=== PATIENT | male | born 1940 | race Caucasian/White ===

== ENCOUNTER 2016-09-05 18:32 | Emergency (ER) | payer MEDICARE, MEDICAID ==
[~2016-09-05 18:32] MED LIST: ABIL2TAB2 PO; ACET-654 PO; ACTO30TA6 PO; ASPI81CH21 PO; ASPI81TA7 PO; ATOR40TA PO; BACT800T5 PO; BISO5TAB5 PO; BUPR150T3 PO; CITA10TA2 PO; DIGO25TA PO; DOXY10CA PO; DRIS1CAP PO; DRIS50002 PO; GLUC1VL SC; GLUC4GMTAB OR; INDA125TA PO; INDA2.5T PO; INSULANT SC; LANTINJ4 SC; LIPI20TA PO; LIPI80TA PO; LORA0.5T PO; LOTR1CRE TOP; LOVA1CAP16 PO; MIRT1TAB PO; NOVO70VL SC; POTA20TA4 PO; SYNT50TA PO; TRAZ150T PO; VENL75TA2 PO; VITA10002 PO; WELLTAB38 PO; ZEST20TA8 PO; [UNRECOGNIZED DRUG - CODE] PO; [UNRECOGNIZED DRUG - OTHER] OR; glucometer
[2016-09-05] MEDS ORDERED: ADACEL/BOOSTRIX VACCINE (DIPHTH/PERTUSS/ACELL/TETANUS)0.5ML SYR (90715) As Ordered ONE (19:07)
--- NOTE | 2016-09-05 19:23 | REP ---
Clinical: Trauma. Comparison: 05/18/2016. Findings: There is a very small hyperdense focus along the right post central gyrus (image 23) while this may reflect chronic change, a very small contusion cannot be excluded. The ventricles and sulci are otherwise symmetric and demonstrate atrophic changes. The vazquez-white differentiation is maintained without evidence for acute infarction. No further intracranial hemorrhage mass or mass effect is identified. No extra-axial fluid collection is appreciated. The calvarium is intact the sinuses are clear. Impression: Very small hyperdense focus along the right post central gyrus may reflect chronic change versus small acute contusion. No further acute intracranial hemorrhage, infarction, or mass/mass effect. Age related atrophy and microvascular ischemic changes. Signed by Elkin Cabello MD 09/05/2016 07:15 P
--- NOTE | 2016-09-05 19:27 | REP ---
Clinical: Trauma. Technique: Axial noncontrast images from the skull base to the thoracic inlet with coronal and sagittal re-formations. Findings: Straightening of normal lordosis is secondary to positioning versus pain/spasm. Osteopenia and advanced multilevel degenerative changes includes anterior and posterior osteophytosis along with posterior longitudinal ligament calcifications, endplate sclerosis and disc space narrowing. Chronic canal stenosis from C5-C7 measures approximately 6.6 mm in the AP diameter. Partial fusion at C7-T1. No obvious acute fracture / compression injury or subluxation. Posterior elements and spinous processes demonstrate degenerative changes without acute fracture. Paravertebral soft tissues are grossly normal. Impression: Osteopenia and multilevel degenerative changes as described above. Straightening of normal lordosis likely chronic and related to positioning. No acute fracture / compression injury or subluxation identified. Signed by Elkin Cabello MD 09/05/2016 07:19 P
--- NOTE | 2016-09-05 19:44 | REP ---
Clinical: Trauma. Technique: AP and lateral views of the left forearm. Findings: Age-related osteopenia and degenerative changes at the wrist and elbow are suggested. No obvious acute fracture or dislocation. No subcutaneous emphysema or radiodense foreign body. Impression: Age-related changes. No acute fracture or dislocation identified. Signed by Elkin Cabello MD 09/05/2016 07:36 P
[2016-09-05] MEDS ORDERED: LIDOCAINE 1% MDV 20ML VIAL As Ordered ONE (20:10)
--- NOTE | 2016-09-05 21:03 | EDDOCDS ---
Nurse's Notes [facility] Name: Rohan Mantilla Age: 75 yrs Sex: Male : 1940 Arrival Date: 09/05/2016 Time: 18:32 Bed 3 Private MD: Osvaldo Diagnosis: Laceration without foreign body of left ear;Contusion of unspecified part of head Presentation: 09/05 18:40 Presenting complaint: Patient states: states that he attempted to get into his chair ml6 without his walker, patient states that he became dizzy and fell sideways striking his right ear on table. Adult Sepsis Screening: The patient does not have new or worsening altered mentation. Patient's respiratory rate is less than 22. Systolic blood pressure is greater than 100. Patient has a qSOFA score of 0- Negative Sepsis Screen. Suicide/Homicide risk assessment- the patient denies having any suicidal and/or homicidal ideations and does not present with any other emotional, behavioral or mental health complaints. 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 Transition of care: patient was not received from another setting of care. 18:40 Acuity: CIARA Level 3 ml6 18:40 Method Of Arrival: Walkin/Carried/Asstd ml6 Triage Assessment: 18:46 General: Appears in no apparent distress, Behavior is appropriate for age, cooperative. ml6 Pain: Location: left ear and palmar aspect of left forearm Pain currently is 3 out of 10 on a pain scale. Pain does not radiate. Quality of pain is described as aching, Pain began 30 min ago Is continuous. The patient is triaged at the bedside. See Assessment in Nurses Notes section of ED record. Neurological: No deficits noted. Level of Consciousness is awake, alert, Oriented to person, place, time, Bus Attendant are equal bilaterally Moves all extremities. Full function Gait is steady, Speech is normal. Cardiovascular: No deficits noted. Capillary refill < 3 seconds is brisk in bilateral fingers toes. Musculoskeletal: cervical spine is non-tender. Circulation, motion, and sensation intact Signs and Symptoms of Compartment Syndrome: no signs of compartment syndrome. Injury Description: pt fell from standing. Historical: - Allergies: no known allergies; - Home Meds: 1. Abilify 2 mg Oral tab 2 mg daily (Last dose: 09/05/2016 08:00) 2. aspirin 81 mg Oral TbEC 1 tab once daily (Last dose: 09/05/2016 08:00) 3. atorvastatin 40 mg oral tab 1 tab once daily (Last dose: 09/05/2016 08:00) 4. B12 1000mcg 1 tab daily (Last dose: 09/05/2016 08:00) 5. bisoprolol fumarate 5 mg oral tab 0.5 tab once daily (Last dose: 09/05/2016 08:00) 6. bupropion HCl 150 mg Oral TbER 2 tab once daily (Last dose: 09/05/2016 08:00) 7. Drisdol 50,000 unit Oral cap 1 cap once wkly (Last dose: 09/05/2016 08:00) 8. indapamide 1.25 mg Oral tab 1 tab every two days (Last dose: 09/05/2016 08:00) 9. Lantus 100 unit/mL Sub-Q soln 12 unit nightly (Last dose: 09/04/2016 20:00) 10. levothyroxine 50 mcg Oral cap once daily (Last dose: 09/05/2016 08:00) 11. Lofibra 200 mg oral cap 1 cap once daily (Last dose: 09/05/2016 08:00) 12. Mapap (acetaminophen) 325 mg oral tab 2 tabs every 4 hours (Last dose: 09/05/2016 08:00) 13. Milk of Magnesia 400 mg/5 mL Oral susp 30 mL once daily (Last dose: 09/05/2016 08:00) 14. mirtazapine 7.5 mg Oral tab 1 tabs once daily (Last dose: 09/05/2016 08:00) 15. Novolin 70/30 Innolet 36 units Sub-Q 70-30 unit/mL (Last dose: 09/05/2016 12:00) 16. venlafaxine 75 mg oral tab 2 tab 2 times per day (Last dose: 09/05/2016 08:00) - PMHx: Anxiety; Atrial Fib; Diabetes; Hypercholesterolemia; Hypertension; Hypothyroidism; kidney disease; - PSHx: Colostomy Construction; - Social history: Smoking status: Patient states former smoker of tobacco. No barriers to communication noted, Speaks appropriately for age. - Family history: Not pertinent. - : The pt / caregiver states he / she is not on anticoagulants. Home medication list is obtained from the patient. - Exposure Risk Screening:: None identified. Screenin:47 Screening information is obtained from the patient. Fall risk: No risks identified. ml6 Assistance ADL's: requires no assistance with activities of daily living. Abuse/DV Screen: The patient / caregiver reports he/she is: not in a situation that causes fear, pain or injury. Nutritional screening: No deficits noted. Advance Directives: Currently, there is no health care proxy. home support is adequate. Assessment: 18:47 General: see triage assessment. 6 19:02 General: Verbal report given by Vikash Plata RN. Assumed care of patient at this time.. kas2 19:45 General: Appears in no apparent distress, comfortable, well nourished, well groomed, kas2 Behavior is appropriate for age, cooperative. Pain: Location: left arm and left ear and palmar aspect of left forearm Pain currently is 4 out of 10 on a pain scale. Neurological: Level of Consciousness is awake, alert, Oriented to person, place, time. Cardiovascular: Capillary refill < 3 seconds Heart tones S1 S2 present Rhythm is sinus rhythm No ectopy. Respiratory: Airway is patent Respiratory effort is even, unlabored, Respiratory pattern is regular, symmetrical, Breath sounds are clear bilaterally. Derm: Skin is intact, is healthy with good turgor, Skin is dry, Skin is pink, warm & dry. Skin temperature is warm. Injury Description: Laceration sustained to left ear. 20:23 General: Dr. Champagne in the room suturing up left ear at this time.. kas2 20:45 General: Patient sitting up in bed with no complaints of pain or discomfort at this kas2 time. Bleeding controlled to left ear. No apparent distress. Call khan within reach. Will continue to monitor at this time.. 21:02 General: Report called to Nursing speech pathology supervisor Luh NINO at [facility] assisted living.. kas2 Vital Signs: 18:41 BP 143 / 68; Pulse 72; Resp 16; Temp 97.3(O); Pulse Ox 97% on R/A; Weight 95.16 kg (R); ml6 Height 5 ft. 8 in. (172.72 cm) (R); Pain 2/10; 18:45 BP 129 / 62 (auto/); kas2 18:45 Pulse 71 MON; Pulse Ox 97% ; kas2 19:00 BP 183 / 84 (auto/); kas2 19:00 Pulse 81 MON; Pulse Ox 96% ; kas2 19:14 BP 139 / 68 (auto/); kas2 19:14 Pulse 73 MON; Pulse Ox 96% ; kas2 19:16 BP 142 / 72 (auto/); kas2 19:16 Pulse 72 MON; Pulse Ox 97% ; kas2 19:31 BP 136 / 64 (auto/); kas2 19:31 Pulse 71 MON; Pulse Ox 93% ; kas2 19:46 BP 133 / 75 (auto/); kas2 19:46 Pulse 72 MON; Pulse Ox 92% ; kas2 19:47 Resp 20; Temp 98.2(O); kas2 20:01 BP 142 / 63 (auto/); kas2 20:01 Pulse 69 MON; Pulse Ox 94% ; kas2 20:16 BP 156 / 88 (auto/); kas2 20:16 Pulse 70 MON; Pulse Ox 96% ; kas2 20:31 BP 153 / 80 (auto/); kas2 20:31 Pulse 70 MON; Pulse Ox 97% ; kas2 20:46 BP 151 / 85 (auto/); kas2 20:46 Pulse 71 MON; Pulse Ox 95% ; kas2 18:41 Body Mass Index 31.90 (95.16 kg, 172.72 cm) 6 Vitals: 18:41 Log In Time N/A - ambulance arrival. 6 ED Course: 18:33 Patient visited by Cari Ibrahim Sediment Remediation Consultant. lbd 18:33 [place] is Private Physician. lbd 18:33 Patient moved to Waiting lbd 18:34 Ousmane Plata, RN is Primary Nurse. lbd 18:34 Patient moved to 3 lbd 18:41 Triage Initiated ml6 18:47 The patient / caregiver is instructed regarding the plan of care and ED course. ml6 18:53 Armani Champagne DO is Attending Physician. cs11 18:53 Patient visited by Armani Champagne DO. cs11 19:02 Zuri Owens,MICA is Primary Nurse. kas2 19:03 Patient visited by Zuri Owens,MICA. kas2 19:47 Patient visited by Zuri Owens RN. kas2 20:04 CT Head Without Contrast Returned. EDMS 20:04 CT Spine,Cervical W/o Contrast Returned. EDMS 20:04 Forearm (radius/ulna) Returned. EDMS 20:06 [facility] Payment Agreement was scanned into [employer] and attached to record. gjb 20:20 Patient visited by Zuri Owens RN. kas2 20:23 Patient visited by Zuri Owens RN. kas2 20:40 Osvaldo is Referral Physician. cs11 21:01 No IV's were initiated during this patient's visit. No procedures done that require kas2 assistance. 21:02 Patient visited by Zuri Owens RN. kas2 Administered Medications: 19:16 Drug: Tetanus- Diptheria-Acellular Pertussis 0.5 ml [diphth,pertussis(acel),tetanus 2.5 kas2 Lf unit-8 mcg-5 Lf/0.5mL IM syringe (0.5 mL)] {Foot Caster: Five minutes. Exp: 10/04/2018. Lot #: [id number]. } Route: IM; Site: right deltoid; Order Results: Radiology Order: CT Head Without Contrast Test: CT Head Without Contrast REASON FOR EXAMINATION: Trauma; Clinical: Trauma.; ; Comparison: 05/18/2016.; ; Findings:; ; There is a very small hyperdense focus along the right post central gyrus (image; 23) while this may reflect chronic change, a very small contusion cannot be; excluded.; ; The ventricles and sulci are otherwise symmetric and demonstrate atrophic; changes. The vazquez-white differentiation is maintained without evidence for acute; infarction. No further intracranial hemorrhage mass or mass effect is; identified. No extra-axial fluid collection is appreciated. The calvarium is; intact the sinuses are clear.; ; ; Impression:; Very small hyperdense focus along the right post central gyrus may reflect; chronic change versus small acute contusion.; No further acute intracranial hemorrhage, infarction, or mass/mass effect.; Age related atrophy and microvascular ischemic changes.; ; ; Signed by; Elkin Cabello MD 09/05/2016 07:15 P; Radiology Order: CT Spine,Cervical W/o Contrast Test: CT Spine,Cervical W/o Contrast REASON FOR EXAMINATION: Trauma; Clinical: Trauma.; ; Technique: Axial noncontrast images from the skull base to the thoracic inlet; with coronal and sagittal re-formations.; ; Findings:; Straightening of normal lordosis is secondary to positioning versus pain/spasm.; Osteopenia and advanced multilevel degenerative changes includes anterior and; posterior osteophytosis along with posterior longitudinal ligament; calcifications, endplate sclerosis and disc space narrowing. 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 Partial; fusion at C7-T1. No obvious acute fracture / compression injury or subluxation.; Posterior elements and spinous processes demonstrate degenerative changes without; acute fracture. Paravertebral soft tissues are grossly normal.; ; Impression:; Osteopenia and multilevel degenerative changes as described above.; Straightening of normal lordosis likely chronic and related to positioning.; No acute fracture / compression injury or subluxation identified.; ; ; Signed by; Elkin Cabello MD 09/05/2016 07:19 P; Radiology Order: Forearm (radius/ulna) Test: Forearm (radius/ulna) REASON FOR EXAMINATION: Trauma; Clinical: Trauma.; ; Technique: AP and lateral views of the left forearm.; ; Findings:; Age-related osteopenia and degenerative changes at the wrist and elbow are; suggested. No obvious acute fracture or dislocation. No subcutaneous emphysema; or radiodense foreign body.; ; Impression:; Age-related changes. No acute fracture or dislocation identified.; ; ; Signed by; Elkin Cabello MD 09/05/2016 07:36 P; Outcome: 20:43 Discharge ordered by Provider. 11 21:01 Discharge Assessment: patient administered narcotics - no. The following High Risk contra [facility] Discharge criteria are identified: None. Discharged to [facility] assisted. Condition: good Condition: stable Condition: improved. CT Study completed. Property :Personal belongings accompany Pt. 21:02 Patient left the ED. contra [facility] Signatures: Dispatcher [employer] EDMS Cari Ibrahim, Sediment Remediation Consultant Unit lbd Ousmane Plata RN RN ml6 Armani Champagne DO DO cs11 Mirta Holloway KimRN RN contra [facility]
--- NOTE | 2016-09-05 21:03 | EDDOCDS ---
Physician Documentation [facility] Name: Rohan Mantilla Age: 75 yrs Sex: Male : 1940 Arrival Date: 09/05/2016 Time: 18:32 Bed 3 Private MD: Osvaldo Disposition: 09/05/16 20:43 Discharged to Home/Self Care. Impression: Laceration without foreign body of left ear, Contusion of unspecified part of head. - Condition is Stable. - Medication Reconciliation, Local Pharmacy Hours form. - Follow up: Osvaldo; When: 1 week; Reason: Staple/Suture removal. - Problem is new. - Symptoms have improved. Historical: - Allergies: no known allergies; - Home Meds: 1. Abilify 2 mg Oral tab 2 mg daily (Last dose: 09/05/2016 08:00) 2. aspirin 81 mg Oral TbEC 1 tab once daily (Last dose: 09/05/2016 08:00) 3. atorvastatin 40 mg oral tab 1 tab once daily (Last dose: 09/05/2016 08:00) 4. B12 1000mcg 1 tab daily (Last dose: 09/05/2016 08:00) 5. bisoprolol fumarate 5 mg oral tab 0.5 tab once daily (Last dose: 09/05/2016 08:00) 6. bupropion HCl 150 mg Oral TbER 2 tab once daily (Last dose: 09/05/2016 08:00) 7. Drisdol 50,000 unit Oral cap 1 cap once wkly (Last dose: 09/05/2016 08:00) 8. indapamide 1.25 mg Oral tab 1 tab every two days (Last dose: 09/05/2016 08:00) 9. Lantus 100 unit/mL Sub-Q soln 12 unit nightly (Last dose: 09/04/2016 20:00) 10. levothyroxine 50 mcg Oral cap once daily (Last dose: 09/05/2016 08:00) 11. Lofibra 200 mg oral cap 1 cap once daily (Last dose: 09/05/2016 08:00) 12. Mapap (acetaminophen) 325 mg oral tab 2 tabs every 4 hours (Last dose: 09/05/2016 08:00) 13. Milk of Magnesia 400 mg/5 mL Oral susp 30 mL once daily (Last dose: 09/05/2016 08:00) 14. mirtazapine 7.5 mg Oral tab 1 tabs once daily (Last dose: 09/05/2016 08:00) 15. Novolin 70/30 Innolet 36 units Sub-Q 70-30 unit/mL (Last dose: 09/05/2016 12:00) 16. venlafaxine 75 mg oral tab 2 tab 2 times per day (Last dose: 09/05/2016 08:00) - PMHx: Anxiety; Atrial Fib; Diabetes; Hypercholesterolemia; Hypertension; Hypothyroidism; kidney disease; - PSHx: Colostomy Construction; - Social history: Smoking status: Patient states former smoker of tobacco. No barriers to communication noted, Speaks appropriately for age. - Family history: Not pertinent. - : The pt / caregiver states he / she is not on anticoagulants. Home medication list is obtained from the patient. - Exposure Risk Screening:: None identified. Vital Signs: 09/05 18:41 BP 143 / 68; Pulse 72; Resp 16; Temp 97.3(O); Pulse Ox 97% on R/A; Weight 95.16 kg / ml6 209.79 lbs (R); Height 5 ft. 8 in. (172.72 cm) (R); Pain 2/10; 18:45 BP 129 / 62 (auto/); kas2 18:45 Pulse 71 MON; Pulse Ox 97% ; kas2 19:00 BP 183 / 84 (auto/); kas2 19:00 Pulse 81 MON; Pulse Ox 96% ; kas2 19:14 BP 139 / 68 (auto/); kas2 19:14 Pulse 73 MON; Pulse Ox 96% ; kas2 19:16 BP 142 / 72 (auto/); kas2 19:16 Pulse 72 MON; Pulse Ox 97% ; kas2 19:31 BP 136 / 64 (auto/); kas2 19:31 Pulse 71 MON; Pulse Ox 93% ; kas2 19:46 BP 133 / 75 (auto/); kas2 19:46 Pulse 72 MON; Pulse Ox 92% ; kas2 19:47 Resp 20; Temp 98.2(O); kas2 20:01 BP 142 / 63 (auto/); kas2 20:01 Pulse 69 MON; Pulse Ox 94% ; kas2 20:16 BP 156 / 88 (auto/); kas2 20:16 Pulse 70 MON; Pulse Ox 96% ; kas2 20:31 BP 153 / 80 (auto/); kas2 20:31 Pulse 70 MON; Pulse Ox 97% ; kas2 20:46 BP 151 / 85 (auto/); kas2 20:46 Pulse 71 MON; Pulse Ox 95% ; kas2 18:41 Body Mass Index 31.90 (95.16 kg, 172.72 cm) ml6 Procedures: 20:36 Laceration repair:. cs11 Laceration: 20:36 Wound Repair of 1.5cm ( 0.6in ) full thickness laceration to left ear. Distal cs11 neuro/vascular/tendon intact. Anesthesia: Local anesthetic administered with 2.0 mls of 1% lidocaine. Wound prep: Moderate cleansing with hibiclenz by provider. Skin closed with 5 x 3-0 Ethilon using Simple interrupted sutures. Patient tolerated well. MDM: 18:53 CT Head Without Contrast Ordered. EDMS 18:53 CT Spine,Cervical W/o Contrast Ordered. EDMS 18:55 Tetanus- Diptheria-Acellular Pertussis 0.5 ml IM once; Routine booster 10-64yrs, >64 cs11 with child contact Clarkia Omnicell ordered. 18:57 Forearm (radius/ulna) Ordered. EDMS 19:55 Financial registration complete. [email or web address] 20:06 [facility] Payment Agreement was scanned into [employer] and attached to record. gjb Administered Medications: 19:16 Drug: Tetanus- Diptheria-Acellular Pertussis 0.5 ml [diphth,pertussis(acel),tetanus 2.5 [facility] Lf unit-8 mcg-5 Lf/0.5mL IM syringe (0.5 mL)] {Engine Assembler: [employer]. Exp: 10/04/2018. Lot #: [id number]. } Route: IM; Site: right deltoid; Signatures: Dispatcher MedHost EDMS Ousmane Plata RN RN ml6 Armani Champagne DO DO cs11 Mirta Hollowayb Zuri Owens RN RN kas2 The chart was reviewed and I authenticate all verbal orders and agree with the evaluation and treatment provided.Attachments: 20:06 [facility] Payment Agreement gjzahira MTDD
--- NOTE | 2016-09-07 22:03 | EDDOCDS ---
Physician Documentation [facility] Name: Rohan Mantilla Age: 75 yrs Sex: Male : 1940 Arrival Date: 09/05/2016 Time: 18:32 Bed 3 Private MD: Osvaldo Disposition: 09/05/16 20:43 Discharged to Home/Self Care. Impression: Laceration without foreign body of left ear, Contusion of unspecified part of head. - Condition is Stable. - Medication Reconciliation, Local Pharmacy Hours form. - Follow up: Osvaldo; When: 1 week; Reason: Staple/Suture removal. - Problem is new. - Symptoms have improved. Historical: - Allergies: no known allergies; - Home Meds: 1. Abilify 2 mg Oral tab 2 mg daily (Last dose: 09/05/2016 08:00) 2. aspirin 81 mg Oral TbEC 1 tab once daily (Last dose: 09/05/2016 08:00) 3. atorvastatin 40 mg oral tab 1 tab once daily (Last dose: 09/05/2016 08:00) 4. B12 1000mcg 1 tab daily (Last dose: 09/05/2016 08:00) 5. bisoprolol fumarate 5 mg oral tab 0.5 tab once daily (Last dose: 09/05/2016 08:00) 6. bupropion HCl 150 mg Oral TbER 2 tab once daily (Last dose: 09/05/2016 08:00) 7. Drisdol 50,000 unit Oral cap 1 cap once wkly (Last dose: 09/05/2016 08:00) 8. indapamide 1.25 mg Oral tab 1 tab every two days (Last dose: 09/05/2016 08:00) 9. Lantus 100 unit/mL Sub-Q soln 12 unit nightly (Last dose: 09/04/2016 20:00) 10. levothyroxine 50 mcg Oral cap once daily (Last dose: 09/05/2016 08:00) 11. Lofibra 200 mg oral cap 1 cap once daily (Last dose: 09/05/2016 08:00) 12. Mapap (acetaminophen) 325 mg oral tab 2 tabs every 4 hours (Last dose: 09/05/2016 08:00) 13. Milk of Magnesia 400 mg/5 mL Oral susp 30 mL once daily (Last dose: 09/05/2016 08:00) 14. mirtazapine 7.5 mg Oral tab 1 tabs once daily (Last dose: 09/05/2016 08:00) 15. Novolin 70/30 Innolet 36 units Sub-Q 70-30 unit/mL (Last dose: 09/05/2016 12:00) 16. venlafaxine 75 mg oral tab 2 tab 2 times per day (Last dose: 09/05/2016 08:00) - PMHx: Anxiety; Atrial Fib; Diabetes; Hypercholesterolemia; Hypertension; Hypothyroidism; kidney disease; - PSHx: Colostomy Construction; - Social history: Smoking status: Patient states former smoker of tobacco. No barriers to communication noted, Speaks appropriately for age. - Family history: Not pertinent. - : The pt / caregiver states he / she is not on anticoagulants. Home medication list is obtained from the patient. - Exposure Risk Screening:: None identified. Vital Signs: 09/05 18:41 BP 143 / 68; Pulse 72; Resp 16; Temp 97.3(O); Pulse Ox 97% on R/A; Weight 95.16 kg / ml6 209.79 lbs (R); Height 5 ft. 8 in. (172.72 cm) (R); Pain 2/10; 18:45 BP 129 / 62 (auto/); kas2 18:45 Pulse 71 MON; Pulse Ox 97% ; kas2 19:00 BP 183 / 84 (auto/); kas2 19:00 Pulse 81 MON; Pulse Ox 96% ; kas2 19:14 BP 139 / 68 (auto/); kas2 19:14 Pulse 73 MON; Pulse Ox 96% ; kas2 19:16 BP 142 / 72 (auto/); kas2 19:16 Pulse 72 MON; Pulse Ox 97% ; kas2 19:31 BP 136 / 64 (auto/); kas2 19:31 Pulse 71 MON; Pulse Ox 93% ; kas2 19:46 BP 133 / 75 (auto/); kas2 19:46 Pulse 72 MON; Pulse Ox 92% ; kas2 19:47 Resp 20; Temp 98.2(O); kas2 20:01 BP 142 / 63 (auto/); kas2 20:01 Pulse 69 MON; Pulse Ox 94% ; kas2 20:16 BP 156 / 88 (auto/); kas2 20:16 Pulse 70 MON; Pulse Ox 96% ; kas2 20:31 BP 153 / 80 (auto/); kas2 20:31 Pulse 70 MON; Pulse Ox 97% ; kas2 20:46 BP 151 / 85 (auto/); kas2 20:46 Pulse 71 MON; Pulse Ox 95% ; kas2 18:41 Body Mass Index 31.90 (95.16 kg, 172.72 cm) ml6 Procedures: 20:36 Laceration repair:. cs11 Laceration: 20:36 Wound Repair of 1.5cm ( 0.6in ) full thickness laceration to left ear. Distal cs11 neuro/vascular/tendon intact. Anesthesia: Local anesthetic administered with 2.0 mls of 1% lidocaine. Wound prep: Moderate cleansing with hibiclenz by provider. Skin closed with 5 x 3-0 Ethilon using Simple interrupted sutures. Patient tolerated well. MDM: 18:53 CT Head Without Contrast Ordered. EDMS 18:53 CT Spine,Cervical W/o Contrast Ordered. EDMS 18:55 Tetanus- Diptheria-Acellular Pertussis 0.5 ml IM once; Routine booster 10-64yrs, >64 cs11 with child contact Meeker Omnicell ordered. 18:57 Forearm (radius/ulna) Ordered. EDMS 19:55 Financial registration complete. [facility] 20:06 [facility] Payment Agreement was scanned into [employer] and attached to record. [facility] 09/06 08:11 T-Sheet-- Draft Copy was scanned into [employer] and attached to record. [facility] Administered Medications: 09/05 19:16 Drug: Tetanus- Diptheria-Acellular Pertussis 0.5 ml [diphth,pertussis(acel),tetanus 2.5 [facility] Lf unit-8 mcg-5 Lf/0.5mL IM syringe (0.5 mL)] {Outdoor Adventure Guides: [employer]. Exp: 10/04/2018. Lot #: [id number]. } Route: IM; Site: right deltoid; Signatures: Dispatcher MedHost EDMS Ousmane Plata RN RN ml6 Armani Champagne DO DO cs11 Mirta Holloway [facility] Zuri Owens RN RN kas2 [place] The chart was reviewed and I authenticate all verbal orders and agree with the evaluation and treatment provided.Attachments: 20:06 [facility] Payment Agreement gjb 09/06 08:11 T-Sheet-- Draft Copy [facility] Chart Complete MTDD
--- NOTE | 2016-09-07 22:03 | EDDOCDS ---
Nurse's Notes [facility] Name: Rohan Mantilla Age: 75 yrs Sex: Male : 1940 Arrival Date: 09/05/2016 Time: 18:32 Bed 3 Private MD: Osvaldo Diagnosis: Laceration without foreign body of left ear;Contusion of unspecified part of head Presentation: 09/05 18:40 Presenting complaint: Patient states: states that he attempted to get into his chair ml6 without his walker, patient states that he became dizzy and fell sideways striking his right ear on table. Adult Sepsis Screening: The patient does not have new or worsening altered mentation. Patient's respiratory rate is less than 22. Systolic blood pressure is greater than 100. Patient has a qSOFA score of 0- Negative Sepsis Screen. Suicide/Homicide risk assessment- the patient denies having any suicidal and/or homicidal ideations and does not present with any other emotional, behavioral or mental health complaints. Status: Patient is not a dental service technician or dependent. Transition of care: patient was not received from another setting of care. 18:40 Acuity: CIARA Level 3 ml6 18:40 Method Of Arrival: Walkin/Carried/Asstd ml6 Triage Assessment: 18:46 General: Appears in no apparent distress, Behavior is appropriate for age, cooperative. ml6 Pain: Location: left ear and palmar aspect of left forearm Pain currently is 3 out of 10 on a pain scale. Pain does not radiate. Quality of pain is described as aching, Pain began 30 min ago Is continuous. The patient is triaged at the bedside. See Assessment in Nurses Notes section of ED record. Neurological: No deficits noted. Level of Consciousness is awake, alert, Oriented to person, place, time, Animal Daycare Provider are equal bilaterally Moves all extremities. Full function Gait is steady, Speech is normal. Cardiovascular: No deficits noted. Capillary refill < 3 seconds is brisk in bilateral fingers toes. Musculoskeletal: cervical spine is non-tender. Circulation, motion, and sensation intact Signs and Symptoms of Compartment Syndrome: no signs of compartment syndrome. Injury Description: pt fell from standing. Historical: - Allergies: no known allergies; - Home Meds: 1. Abilify 2 mg Oral tab 2 mg daily (Last dose: 09/05/2016 08:00) 2. aspirin 81 mg Oral TbEC 1 tab once daily (Last dose: 09/05/2016 08:00) 3. atorvastatin 40 mg oral tab 1 tab once daily (Last dose: 09/05/2016 08:00) 4. B12 1000mcg 1 tab daily (Last dose: 09/05/2016 08:00) 5. bisoprolol fumarate 5 mg oral tab 0.5 tab once daily (Last dose: 09/05/2016 08:00) 6. bupropion HCl 150 mg Oral TbER 2 tab once daily (Last dose: 09/05/2016 08:00) 7. Drisdol 50,000 unit Oral cap 1 cap once wkly (Last dose: 09/05/2016 08:00) 8. indapamide 1.25 mg Oral tab 1 tab every two days (Last dose: 09/05/2016 08:00) 9. Lantus 100 unit/mL Sub-Q soln 12 unit nightly (Last dose: 09/04/2016 20:00) 10. levothyroxine 50 mcg Oral cap once daily (Last dose: 09/05/2016 08:00) 11. Lofibra 200 mg oral cap 1 cap once daily (Last dose: 09/05/2016 08:00) 12. Mapap (acetaminophen) 325 mg oral tab 2 tabs every 4 hours (Last dose: 09/05/2016 08:00) 13. Milk of Magnesia 400 mg/5 mL Oral susp 30 mL once daily (Last dose: 09/05/2016 08:00) 14. mirtazapine 7.5 mg Oral tab 1 tabs once daily (Last dose: 09/05/2016 08:00) 15. Novolin 70/30 [place] 36 units Sub-Q 70-30 unit/mL (Last dose: 09/05/2016 12:00) 16. venlafaxine 75 mg oral tab 2 tab 2 times per day (Last dose: 09/05/2016 08:00) - PMHx: Anxiety; Atrial Fib; Diabetes; Hypercholesterolemia; Hypertension; Hypothyroidism; kidney disease; - PSHx: Colostomy Construction; - Social history: Smoking status: Patient states former smoker of tobacco. No barriers to communication noted, Speaks appropriately for age. - Family history: Not pertinent. - : The pt / caregiver states he / she is not on anticoagulants. Home medication list is obtained from the patient. - Exposure Risk Screening:: None identified. Screenin:47 Screening information is obtained from the patient. Fall risk: No risks identified. ml6 Assistance ADL's: requires no assistance with activities of daily living. Abuse/DV Screen: The patient / caregiver reports he/she is: not in a situation that causes fear, pain or injury. Nutritional screening: No deficits noted. Advance Directives: Currently, there is no health care proxy. home support is adequate. Assessment: 18:47 General: see triage assessment. 6 19:02 General: Verbal report given by Vikash Plata RN. Assumed care of patient at this time.. kas2 19:45 General: Appears in no apparent distress, comfortable, well nourished, well groomed, kas2 Behavior is appropriate for age, cooperative. Pain: Location: left arm and left ear and palmar aspect of left forearm Pain currently is 4 out of 10 on a pain scale. Neurological: Level of Consciousness is awake, alert, Oriented to person, place, time. Cardiovascular: Capillary refill < 3 seconds Heart tones S1 S2 present Rhythm is sinus rhythm No ectopy. Respiratory: Airway is patent Respiratory effort is even, unlabored, Respiratory pattern is regular, symmetrical, Breath sounds are clear bilaterally. Derm: Skin is intact, is healthy with good turgor, Skin is dry, Skin is pink, warm & dry. Skin temperature is warm. Injury Description: Laceration sustained to left ear. 20:23 General: Dr. Champagne in the room suturing up left ear at this time.. kas2 20:45 General: Patient sitting up in bed with no complaints of pain or discomfort at this kas2 time. Bleeding controlled to left ear. No apparent distress. Call khan within reach. Will continue to monitor at this time.. 21:02 General: Report called to Nursing broadcast supervisor Luh NINO at [facility] assisted living.. kas2 Vital Signs: 18:41 BP 143 / 68; Pulse 72; Resp 16; Temp 97.3(O); Pulse Ox 97% on R/A; Weight 95.16 kg (R); ml6 Height 5 ft. 8 in. (172.72 cm) (R); Pain 2/10; 18:45 BP 129 / 62 (auto/); kas2 18:45 Pulse 71 MON; Pulse Ox 97% ; kas2 19:00 BP 183 / 84 (auto/); kas2 19:00 Pulse 81 MON; Pulse Ox 96% ; kas2 19:14 BP 139 / 68 (auto/); kas2 19:14 Pulse 73 MON; Pulse Ox 96% ; kas2 19:16 BP 142 / 72 (auto/); kas2 19:16 Pulse 72 MON; Pulse Ox 97% ; kas2 19:31 BP 136 / 64 (auto/); kas2 19:31 Pulse 71 MON; Pulse Ox 93% ; kas2 19:46 BP 133 / 75 (auto/); kas2 19:46 Pulse 72 MON; Pulse Ox 92% ; kas2 19:47 Resp 20; Temp 98.2(O); kas2 20:01 BP 142 / 63 (auto/); kas2 20:01 Pulse 69 MON; Pulse Ox 94% ; kas2 20:16 BP 156 / 88 (auto/); kas2 20:16 Pulse 70 MON; Pulse Ox 96% ; kas2 20:31 BP 153 / 80 (auto/); kas2 20:31 Pulse 70 MON; Pulse Ox 97% ; kas2 20:46 BP 151 / 85 (auto/); kas2 20:46 Pulse 71 MON; Pulse Ox 95% ; kas2 18:41 Body Mass Index 31.90 (95.16 kg, 172.72 cm) 6 Vitals: 18:41 Log In Time N/A - ambulance arrival. 6 ED Course: 18:33 Patient visited by Cari Ibrahim Director Craft Center. lbd 18:33 [place] is Private Physician. lbd 18:33 Patient moved to Waiting lbd 18:34 Ousmane Plata, RN is Primary Nurse. lbd 18:34 Patient moved to 3 lbd 18:41 Triage Initiated ml6 18:47 The patient / caregiver is instructed regarding the plan of care and ED course. ml6 18:53 Armani Champagne DO is Attending Physician. cs11 18:53 Patient visited by Armani Champagne DO. cs11 19:02 Zuri Owens,MICA is Primary Nurse. kas2 19:03 Patient visited by Zuri Owens,MICA. kas2 19:47 Patient visited by Zuri Owens RN. kas2 20:04 CT Head Without Contrast Returned. EDMS 20:04 CT Spine,Cervical W/o Contrast Returned. EDMS 20:04 Forearm (radius/ulna) Returned. EDMS 20:06 [facility] Payment Agreement was scanned into [employer] and attached to record. gjb 20:20 Patient visited by Zuri Owens RN. kas2 20:23 Patient visited by Zuri Owens RN. kas2 20:40 Osvaldo is Referral Physician. cs11 21:01 No IV's were initiated during this patient's visit. No procedures done that require kas2 assistance. 21:02 Patient visited by Zuri Owens RN. kas2 09/06 08:11 T-Sheet-- Draft Copy was scanned into [employer] and attached to record. [facility] Administered Medications: 09/05 19:16 Drug: Tetanus- Diptheria-Acellular Pertussis 0.5 ml [diphth,pertussis(acel),tetanus 2.5 kas2 Lf unit-8 mcg-5 Lf/0.5mL IM syringe (0.5 mL)] {Cloud Security Architect: ezeep. Exp: 10/04/2018. Lot #: [id number]. } Route: IM; Site: right deltoid; Order Results: Radiology Order: CT Head Without Contrast Test: CT Head Without Contrast REASON FOR EXAMINATION: Trauma; Clinical: Trauma.; ; Comparison: 05/18/2016.; ; Findings:; ; There is a very small hyperdense focus along the right post central gyrus (image; 23) while this may reflect chronic change, a very small contusion cannot be; excluded.; ; The ventricles and sulci are otherwise symmetric and demonstrate atrophic; changes. The vazquez-white differentiation is maintained without evidence for acute; infarction. No further intracranial hemorrhage mass or mass effect is; identified. No extra-axial fluid collection is appreciated. The calvarium is; intact the sinuses are clear.; ; ; Impression:; Very small hyperdense focus along the right post central gyrus may reflect; chronic change versus small acute contusion.; No further acute intracranial hemorrhage, infarction, or mass/mass effect.; Age related atrophy and microvascular ischemic changes.; ; ; Signed by; Elkin Cabello MD 09/05/2016 07:15 P; Radiology Order: CT Spine,Cervical W/o Contrast Test: CT Spine,Cervical W/o Contrast REASON FOR EXAMINATION: Trauma; Clinical: Trauma.; ; Technique: Axial noncontrast images from the skull base to the thoracic inlet; with coronal and sagittal re-formations.; ; Findings:; Straightening of normal lordosis is secondary to positioning versus pain/spasm.; Osteopenia and advanced multilevel degenerative changes includes anterior and; posterior osteophytosis along with posterior longitudinal ligament; calcifications, endplate sclerosis and disc space narrowing. 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 Partial; fusion at C7-T1. No obvious acute fracture / compression injury or subluxation.; Posterior elements and spinous processes demonstrate degenerative changes without; acute fracture. Paravertebral soft tissues are grossly normal.; ; Impression:; Osteopenia and multilevel degenerative changes as described above.; Straightening of normal lordosis likely chronic and related to positioning.; No acute fracture / compression injury or subluxation identified.; ; ; Signed by; Elkin Cabello MD 09/05/2016 07:19 P; Radiology Order: Forearm (radius/ulna) Test: Forearm (radius/ulna) REASON FOR EXAMINATION: Trauma; Clinical: Trauma.; ; Technique: AP and lateral views of the left forearm.; ; Findings:; Age-related osteopenia and degenerative changes at the wrist and elbow are; suggested. No obvious acute fracture or dislocation. No subcutaneous emphysema; or radiodense foreign body.; ; Impression:; Age-related changes. No acute fracture or dislocation identified.; ; ; Signed by; Elkin Cabello MD 09/05/2016 07:36 P; Outcome: 20:43 Discharge ordered by Provider. 11 21:01 Discharge Assessment: patient administered narcotics - no. The following High Risk [facility] Discharge criteria are identified: None. Discharged to [facility] assisted. Condition: good Condition: stable Condition: improved. CT Study completed. Property :Personal belongings accompany Pt. 21:02 Patient left the ED. [email or web address] Signatures: Dispatcher Med[employer] EDMS Cari Ibrahim, Director Craft Center Unit lbd Ousmane Plata RN RN ml6 Armani Champagne DO DO cs11 Mirta Holloway Kim, RN RN kas2 [facility] Chart Complete MTDD
--- NOTE | 2016-09-07 22:03 | EDDOCDS ---
Physician Documentation [facility] Name: Rohan Mantilla Age: 75 yrs Sex: Male : 1940 Arrival Date: 09/05/2016 Time: 18:32 Bed 3 Private MD: Osvaldo Disposition: 09/05/16 20:43 Discharged to Home/Self Care. Impression: Laceration without foreign body of left ear, Contusion of unspecified part of head. - Condition is Stable. - Medication Reconciliation, Local Pharmacy Hours form. - Follow up: Osvaldo; When: 1 week; Reason: Staple/Suture removal. - Problem is new. - Symptoms have improved. Historical: - Allergies: no known allergies; - Home Meds: 1. Abilify 2 mg Oral tab 2 mg daily (Last dose: 09/05/2016 08:00) 2. aspirin 81 mg Oral TbEC 1 tab once daily (Last dose: 09/05/2016 08:00) 3. atorvastatin 40 mg oral tab 1 tab once daily (Last dose: 09/05/2016 08:00) 4. B12 1000mcg 1 tab daily (Last dose: 09/05/2016 08:00) 5. bisoprolol fumarate 5 mg oral tab 0.5 tab once daily (Last dose: 09/05/2016 08:00) 6. bupropion HCl 150 mg Oral TbER 2 tab once daily (Last dose: 09/05/2016 08:00) 7. Drisdol 50,000 unit Oral cap 1 cap once wkly (Last dose: 09/05/2016 08:00) 8. indapamide 1.25 mg Oral tab 1 tab every two days (Last dose: 09/05/2016 08:00) 9. Lantus 100 unit/mL Sub-Q soln 12 unit nightly (Last dose: 09/04/2016 20:00) 10. levothyroxine 50 mcg Oral cap once daily (Last dose: 09/05/2016 08:00) 11. Lofibra 200 mg oral cap 1 cap once daily (Last dose: 09/05/2016 08:00) 12. Mapap (acetaminophen) 325 mg oral tab 2 tabs every 4 hours (Last dose: 09/05/2016 08:00) 13. Milk of Magnesia 400 mg/5 mL Oral susp 30 mL once daily (Last dose: 09/05/2016 08:00) 14. mirtazapine 7.5 mg Oral tab 1 tabs once daily (Last dose: 09/05/2016 08:00) 15. Novolin 70/30 In[place]let 36 units Sub-Q 70-30 unit/mL (Last dose: 09/05/2016 12:00) 16. venlafaxine 75 mg oral tab 2 tab 2 times per day (Last dose: 09/05/2016 08:00) - PMHx: Anxiety; Atrial Fib; Diabetes; Hypercholesterolemia; Hypertension; Hypothyroidism; kidney disease; - PSHx: Colostomy Construction; - Social history: Smoking status: Patient states former smoker of tobacco. No barriers to communication noted, Speaks appropriately for age. - Family history: Not pertinent. - : The pt / caregiver states he / she is not on anticoagulants. Home medication list is obtained from the patient. - Exposure Risk Screening:: None identified. Vital Signs: 09/05 18:41 BP 143 / 68; Pulse 72; Resp 16; Temp 97.3(O); Pulse Ox 97% on R/A; Weight 95.16 kg / ml6 209.79 lbs (R); Height 5 ft. 8 in. (172.72 cm) (R); Pain 2/10; 18:45 BP 129 / 62 (auto/); kas2 18:45 Pulse 71 MON; Pulse Ox 97% ; kas2 19:00 BP 183 / 84 (auto/); kas2 19:00 Pulse 81 MON; Pulse Ox 96% ; kas2 19:14 BP 139 / 68 (auto/); kas2 19:14 Pulse 73 MON; Pulse Ox 96% ; kas2 19:16 BP 142 / 72 (auto/); kas2 19:16 Pulse 72 MON; Pulse Ox 97% ; kas2 19:31 BP 136 / 64 (auto/); kas2 19:31 Pulse 71 MON; Pulse Ox 93% ; kas2 19:46 BP 133 / 75 (auto/); kas2 19:46 Pulse 72 MON; Pulse Ox 92% ; kas2 19:47 Resp 20; Temp 98.2(O); kas2 20:01 BP 142 / 63 (auto/); kas2 20:01 Pulse 69 MON; Pulse Ox 94% ; kas2 20:16 BP 156 / 88 (auto/); kas2 20:16 Pulse 70 MON; Pulse Ox 96% ; kas2 20:31 BP 153 / 80 (auto/); kas2 20:31 Pulse 70 MON; Pulse Ox 97% ; kas2 20:46 BP 151 / 85 (auto/); kas2 20:46 Pulse 71 MON; Pulse Ox 95% ; kas2 18:41 Body Mass Index 31.90 (95.16 kg, 172.72 cm) ml6 Procedures: 20:36 Laceration repair:. cs11 Laceration: 20:36 Wound Repair of 1.5cm ( 0.6in ) full thickness laceration to left ear. Distal cs11 neuro/vascular/tendon intact. Anesthesia: Local anesthetic administered with 2.0 mls of 1% lidocaine. Wound prep: Moderate cleansing with hibiclenz by provider. Skin closed with 5 x 3-0 Ethilon using Simple interrupted sutures. Patient tolerated well. MDM: 18:53 CT Head Without Contrast Ordered. EDMS 18:53 CT Spine,Cervical W/o Contrast Ordered. EDMS 18:55 Tetanus- Diptheria-Acellular Pertussis 0.5 ml IM once; Routine booster 10-64yrs, >64 cs11 with child contact [employer] ordered. 18:57 Forearm (radius/ulna) Ordered. EDMS 19:55 Financial registration complete. [facility] 20:06 [facility] Payment Agreement was scanned into [email or web address] and attached to record. [facility] 09/06 08:11 T-Sheet-- Draft Copy was scanned into [email or web address] and attached to record. [facility] Administered Medications: 09/05 19:16 Drug: Tetanus- Diptheria-Acellular Pertussis 0.5 ml [diphth,pertussis(acel),tetanus 2.5 [facility] Lf unit-8 mcg-5 Lf/0.5mL IM syringe (0.5 mL)] {Balance Wheel Screw Hole Tapper: [employer]/Drive.SG [employer]. Exp: 10/04/2018. Lot #: [id number]. } Route: IM; Site: right deltoid; Signatures: Dispatcher MedHost EDMS Ousmane Plata RN RN ml6 Armani Champagne DO DO cs11 Mirta Holloway [facility] Zuri Owens RN RN kas2 [place] se The chart was reviewed and I authenticate all verbal orders and agree with the evaluation and treatment provided.Attachments: 20:06 [facility] Payment Agreement gjb 09/06 08:11 T-Sheet-- Draft Copy [facility] Chart Complete MTDD
--- NOTE | 2016-09-08 10:31 | EDDOCDS ---
Nurse's Notes [facility] Name: Rohan Mantilla Age: 75 yrs Sex: Male : 1940 Arrival Date: 09/05/2016 Time: 18:32 Bed 3 Private MD: Osvaldo Diagnosis: Laceration without foreign body of left ear;Contusion of unspecified part of head Presentation: 09/05 18:40 Presenting complaint: Patient states: states that he attempted to get into his chair ml6 without his walker, patient states that he became dizzy and fell sideways striking his right ear on table. Adult Sepsis Screening: The patient does not have new or worsening altered mentation. Patient's respiratory rate is less than 22. Systolic blood pressure is greater than 100. Patient has a qSOFA score of 0- Negative Sepsis Screen. Suicide/Homicide risk assessment- the patient denies having any suicidal and/or homicidal ideations and does not present with any other emotional, behavioral or mental health complaints. 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 Transition of care: patient was not received from another setting of care. 18:40 Acuity: CIARA Level 3 ml6 18:40 Method Of Arrival: Walkin/Carried/Asstd ml6 Triage Assessment: 18:46 General: Appears in no apparent distress, Behavior is appropriate for age, cooperative. ml6 Pain: Location: left ear and palmar aspect of left forearm Pain currently is 3 out of 10 on a pain scale. Pain does not radiate. Quality of pain is described as aching, Pain began 30 min ago Is continuous. The patient is triaged at the bedside. See Assessment in Nurses Notes section of ED record. Neurological: No deficits noted. Level of Consciousness is awake, alert, Oriented to person, place, time, Temporary Receptionist are equal bilaterally Moves all extremities. Full function Gait is steady, Speech is normal. Cardiovascular: No deficits noted. Capillary refill < 3 seconds is brisk in bilateral fingers toes. Musculoskeletal: cervical spine is non-tender. Circulation, motion, and sensation intact Signs and Symptoms of Compartment Syndrome: no signs of compartment syndrome. Injury Description: pt fell from standing. Historical: - Allergies: no known allergies; - Home Meds: 1. Abilify 2 mg Oral tab 2 mg daily (Last dose: 09/05/2016 08:00) 2. aspirin 81 mg Oral TbEC 1 tab once daily (Last dose: 09/05/2016 08:00) 3. atorvastatin 40 mg oral tab 1 tab once daily (Last dose: 09/05/2016 08:00) 4. B12 1000mcg 1 tab daily (Last dose: 09/05/2016 08:00) 5. bisoprolol fumarate 5 mg oral tab 0.5 tab once daily (Last dose: 09/05/2016 08:00) 6. bupropion HCl 150 mg Oral TbER 2 tab once daily (Last dose: 09/05/2016 08:00) 7. Drisdol 50,000 unit Oral cap 1 cap once wkly (Last dose: 09/05/2016 08:00) 8. indapamide 1.25 mg Oral tab 1 tab every two days (Last dose: 09/05/2016 08:00) 9. Lantus 100 unit/mL Sub-Q soln 12 unit nightly (Last dose: 09/04/2016 20:00) 10. levothyroxine 50 mcg Oral cap once daily (Last dose: 09/05/2016 08:00) 11. Lofibra 200 mg oral cap 1 cap once daily (Last dose: 09/05/2016 08:00) 12. Mapap (acetaminophen) 325 mg oral tab 2 tabs every 4 hours (Last dose: 09/05/2016 08:00) 13. Milk of Magnesia 400 mg/5 mL Oral susp 30 mL once daily (Last dose: 09/05/2016 08:00) 14. mirtazapine 7.5 mg Oral tab 1 tabs once daily (Last dose: 09/05/2016 08:00) 15. Novolin 70/30 Innolet 36 units Sub-Q 70-30 unit/mL (Last dose: 09/05/2016 12:00) 16. venlafaxine 75 mg oral tab 2 tab 2 times per day (Last dose: 09/05/2016 08:00) - PMHx: Anxiety; Atrial Fib; Diabetes; Hypercholesterolemia; Hypertension; Hypothyroidism; kidney disease; - PSHx: Colostomy Construction; - Social history: Smoking status: Patient states former smoker of tobacco. No barriers to communication noted, Speaks appropriately for age. - Family history: Not pertinent. - : The pt / caregiver states he / she is not on anticoagulants. Home medication list is obtained from the patient. - Exposure Risk Screening:: None identified. Screenin:47 Screening information is obtained from the patient. Fall risk: No risks identified. ml6 Assistance ADL's: requires no assistance with activities of daily living. Abuse/DV Screen: The patient / caregiver reports he/she is: not in a situation that causes fear, pain or injury. Nutritional screening: No deficits noted. Advance Directives: Currently, there is no health care proxy. home support is adequate. Assessment: 18:47 General: see triage assessment. 6 19:02 General: Verbal report given by Vikash Plata RN. Assumed care of patient at this time.. kas2 19:45 General: Appears in no apparent distress, comfortable, well nourished, well groomed, kas2 Behavior is appropriate for age, cooperative. Pain: Location: left arm and left ear and palmar aspect of left forearm Pain currently is 4 out of 10 on a pain scale. Neurological: Level of Consciousness is awake, alert, Oriented to person, place, time. Cardiovascular: Capillary refill < 3 seconds Heart tones S1 S2 present Rhythm is sinus rhythm No ectopy. Respiratory: Airway is patent Respiratory effort is even, unlabored, Respiratory pattern is regular, symmetrical, Breath sounds are clear bilaterally. Derm: Skin is intact, is healthy with good turgor, Skin is dry, Skin is pink, warm & dry. Skin temperature is warm. Injury Description: Laceration sustained to left ear. 20:23 General: Dr. Champagne in the room suturing up left ear at this time.. kas2 20:45 General: Patient sitting up in bed with no complaints of pain or discomfort at this kas2 time. Bleeding controlled to left ear. No apparent distress. Call khan within reach. Will continue to monitor at this time.. 21:02 General: Report called to Nursing supervisor propellant charge loading Luh NNIO at [facility] assisted living.. kas2 Vital Signs: 18:41 BP 143 / 68; Pulse 72; Resp 16; Temp 97.3(O); Pulse Ox 97% on R/A; Weight 95.16 kg (R); ml6 Height 5 ft. 8 in. (172.72 cm) (R); Pain 2/10; 18:45 BP 129 / 62 (auto/); kas2 18:45 Pulse 71 MON; Pulse Ox 97% ; kas2 19:00 BP 183 / 84 (auto/); kas2 19:00 Pulse 81 MON; Pulse Ox 96% ; kas2 19:14 BP 139 / 68 (auto/); kas2 19:14 Pulse 73 MON; Pulse Ox 96% ; kas2 19:16 BP 142 / 72 (auto/); kas2 19:16 Pulse 72 MON; Pulse Ox 97% ; kas2 19:31 BP 136 / 64 (auto/); kas2 19:31 Pulse 71 MON; Pulse Ox 93% ; kas2 19:46 BP 133 / 75 (auto/); kas2 19:46 Pulse 72 MON; Pulse Ox 92% ; kas2 19:47 Resp 20; Temp 98.2(O); kas2 20:01 BP 142 / 63 (auto/); kas2 20:01 Pulse 69 MON; Pulse Ox 94% ; kas2 20:16 BP 156 / 88 (auto/); kas2 20:16 Pulse 70 MON; Pulse Ox 96% ; kas2 20:31 BP 153 / 80 (auto/); kas2 20:31 Pulse 70 MON; Pulse Ox 97% ; kas2 20:46 BP 151 / 85 (auto/); kas2 20:46 Pulse 71 MON; Pulse Ox 95% ; kas2 18:41 Body Mass Index 31.90 (95.16 kg, 172.72 cm) 6 Vitals: 18:41 Log In Time N/A - ambulance arrival. 6 ED Course: 18:33 Patient visited by Cari Ibrahim Supervisor Labor [employer]. lbd 18:33 [place] is Private Physician. lbd 18:33 Patient moved to Waiting lbd 18:34 Ousmane Plata, RN is Primary Nurse. lbd 18:34 Patient moved to 3 lbd 18:41 Triage Initiated ml6 18:47 The patient / caregiver is instructed regarding the plan of care and ED course. ml6 18:53 Armani Champagne DO is Attending Physician. cs11 18:53 Patient visited by Armani Champagne DO. cs11 19:02 Zuri Owens,MICA is Primary Nurse. kas2 19:03 Patient visited by Zuri Owens,MICA. kas2 19:47 Patient visited by Zuri Owens RN. kas2 20:04 CT Head Without Contrast Returned. EDMS 20:04 CT Spine,Cervical W/o Contrast Returned. EDMS 20:04 Forearm (radius/ulna) Returned. EDMS 20:06 [facility] Payment Agreement was scanned into [employer] and attached to record. gjb 20:20 Patient visited by Zuri Owens RN. kas2 20:23 Patient visited by Zuri Owens RN. kas2 20:40 Osvaldo is Referral Physician. cs11 21:01 No IV's were initiated during this patient's visit. No procedures done that require kas2 assistance. 21:02 Patient visited by Zuri Owens RN. kas2 09/06 08:11 T-Sheet-- Draft Copy was scanned into [employer] and attached to record. [facility] Administered Medications: 09/05 19:16 Drug: Tetanus- Diptheria-Acellular Pertussis 0.5 ml [diphth,pertussis(acel),tetanus 2.5 kas2 Lf unit-8 mcg-5 Lf/0.5mL IM syringe (0.5 mL)] {Gallery Host: [employer]. Exp: 10/04/2018. Lot #: [id number]. } Route: IM; Site: right deltoid; Order Results: Radiology Order: CT Head Without Contrast Test: CT Head Without Contrast REASON FOR EXAMINATION: Trauma; Clinical: Trauma.; ; Comparison: 05/18/2016.; ; Findings:; ; There is a very small hyperdense focus along the right post central gyrus (image; 23) while this may reflect chronic change, a very small contusion cannot be; excluded.; ; The ventricles and sulci are otherwise symmetric and demonstrate atrophic; changes. The vazquez-white differentiation is maintained without evidence for acute; infarction. No further intracranial hemorrhage mass or mass effect is; identified. No extra-axial fluid collection is appreciated. The calvarium is; intact the sinuses are clear.; ; ; Impression:; Very small hyperdense focus along the right post central gyrus may reflect; chronic change versus small acute contusion.; No further acute intracranial hemorrhage, infarction, or mass/mass effect.; Age related atrophy and microvascular ischemic changes.; ; ; Signed by; Elkin Cabello MD 09/05/2016 07:15 P; Radiology Order: CT Spine,Cervical W/o Contrast Test: CT Spine,Cervical W/o Contrast REASON FOR EXAMINATION: Trauma; Clinical: Trauma.; ; Technique: Axial noncontrast images from the skull base to the thoracic inlet; with coronal and sagittal re-formations.; ; Findings:; Straightening of normal lordosis is secondary to positioning versus pain/spasm.; Osteopenia and advanced multilevel degenerative changes includes anterior and; posterior osteophytosis along with posterior longitudinal ligament; calcifications, endplate sclerosis and disc space narrowing. 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 Partial; fusion at C7-T1. No obvious acute fracture / compression injury or subluxation.; Posterior elements and spinous processes demonstrate degenerative changes without; acute fracture. Paravertebral soft tissues are grossly normal.; ; Impression:; Osteopenia and multilevel degenerative changes as described above.; Straightening of normal lordosis likely chronic and related to positioning.; No acute fracture / compression injury or subluxation identified.; ; ; Signed by; Elkin Cabello MD 09/05/2016 07:19 P; Radiology Order: Forearm (radius/ulna) Test: Forearm (radius/ulna) REASON FOR EXAMINATION: Trauma; Clinical: Trauma.; ; Technique: AP and lateral views of the left forearm.; ; Findings:; Age-related osteopenia and degenerative changes at the wrist and elbow are; suggested. No obvious acute fracture or dislocation. No subcutaneous emphysema; or radiodense foreign body.; ; Impression:; Age-related changes. No acute fracture or dislocation identified.; ; ; Signed by; Elkin Cabello MD 09/05/2016 07:36 P; Outcome: 20:43 Discharge ordered by Provider. 11 21:01 Discharge Assessment: patient administered narcotics - no. The following High Risk [facility] Discharge criteria are identified: None. Discharged to [facility] assisted. Condition: good Condition: stable Condition: improved. CT Study completed. Property :Personal belongings accompany Pt. 21:02 Patient left the ED. [facility] Signatures: Dispatcher [employer] EDMS Cari Ibrahim, Supervisor Labor [employer] Unit lbd Ousmane Plata RN RN ml6 Armani Champagne DO DO cs11 Mirta Holloway Kim, RN RN kas2 Park Beckwith MTDD
--- NOTE | 2016-09-08 10:31 | EDDOCDS ---
Physician Documentation [facility] Name: Rohan Mantilla Age: 75 yrs Sex: Male : 1940 Arrival Date: 09/05/2016 Time: 18:32 Bed 3 Private MD: Osvaldo Disposition: 09/05/16 20:43 Discharged to Home/Self Care. Impression: Laceration without foreign body of left ear, Contusion of unspecified part of head. - Condition is Stable. - Medication Reconciliation, Local Pharmacy Hours form. - Follow up: Osvaldo; When: 1 week; Reason: Staple/Suture removal. - Problem is new. - Symptoms have improved. Historical: - Allergies: no known allergies; - Home Meds: 1. Abilify 2 mg Oral tab 2 mg daily (Last dose: 09/05/2016 08:00) 2. aspirin 81 mg Oral TbEC 1 tab once daily (Last dose: 09/05/2016 08:00) 3. atorvastatin 40 mg oral tab 1 tab once daily (Last dose: 09/05/2016 08:00) 4. B12 1000mcg 1 tab daily (Last dose: 09/05/2016 08:00) 5. bisoprolol fumarate 5 mg oral tab 0.5 tab once daily (Last dose: 09/05/2016 08:00) 6. bupropion HCl 150 mg Oral TbER 2 tab once daily (Last dose: 09/05/2016 08:00) 7. Drisdol 50,000 unit Oral cap 1 cap once wkly (Last dose: 09/05/2016 08:00) 8. indapamide 1.25 mg Oral tab 1 tab every two days (Last dose: 09/05/2016 08:00) 9. Lantus 100 unit/mL Sub-Q soln 12 unit nightly (Last dose: 09/04/2016 20:00) 10. levothyroxine 50 mcg Oral cap once daily (Last dose: 09/05/2016 08:00) 11. Lofibra 200 mg oral cap 1 cap once daily (Last dose: 09/05/2016 08:00) 12. Mapap (acetaminophen) 325 mg oral tab 2 tabs every 4 hours (Last dose: 09/05/2016 08:00) 13. Milk of Magnesia 400 mg/5 mL Oral susp 30 mL once daily (Last dose: 09/05/2016 08:00) 14. mirtazapine 7.5 mg Oral tab 1 tabs once daily (Last dose: 09/05/2016 08:00) 15. Novolin 70/30 Innolet 36 units Sub-Q 70-30 unit/mL (Last dose: 09/05/2016 12:00) 16. venlafaxine 75 mg oral tab 2 tab 2 times per day (Last dose: 09/05/2016 08:00) - PMHx: Anxiety; Atrial Fib; Diabetes; Hypercholesterolemia; Hypertension; Hypothyroidism; kidney disease; - PSHx: Colostomy Construction; - Social history: Smoking status: Patient states former smoker of tobacco. No barriers to communication noted, Speaks appropriately for age. - Family history: Not pertinent. - : The pt / caregiver states he / she is not on anticoagulants. Home medication list is obtained from the patient. - Exposure Risk Screening:: None identified. Vital Signs: 09/05 18:41 BP 143 / 68; Pulse 72; Resp 16; Temp 97.3(O); Pulse Ox 97% on R/A; Weight 95.16 kg / ml6 209.79 lbs (R); Height 5 ft. 8 in. (172.72 cm) (R); Pain 2/10; 18:45 BP 129 / 62 (auto/); kas2 18:45 Pulse 71 MON; Pulse Ox 97% ; kas2 19:00 BP 183 / 84 (auto/); kas2 19:00 Pulse 81 MON; Pulse Ox 96% ; kas2 19:14 BP 139 / 68 (auto/); kas2 19:14 Pulse 73 MON; Pulse Ox 96% ; kas2 19:16 BP 142 / 72 (auto/); kas2 19:16 Pulse 72 MON; Pulse Ox 97% ; kas2 19:31 BP 136 / 64 (auto/); kas2 19:31 Pulse 71 MON; Pulse Ox 93% ; kas2 19:46 BP 133 / 75 (auto/); kas2 19:46 Pulse 72 MON; Pulse Ox 92% ; kas2 19:47 Resp 20; Temp 98.2(O); kas2 20:01 BP 142 / 63 (auto/); kas2 20:01 Pulse 69 MON; Pulse Ox 94% ; kas2 20:16 BP 156 / 88 (auto/); kas2 20:16 Pulse 70 MON; Pulse Ox 96% ; kas2 20:31 BP 153 / 80 (auto/); kas2 20:31 Pulse 70 MON; Pulse Ox 97% ; kas2 20:46 BP 151 / 85 (auto/); kas2 20:46 Pulse 71 MON; Pulse Ox 95% ; kas2 18:41 Body Mass Index 31.90 (95.16 kg, 172.72 cm) ml6 Procedures: 20:36 Laceration repair:. cs11 Laceration: 20:36 Wound Repair of 1.5cm ( 0.6in ) full thickness laceration to left ear. Distal cs11 neuro/vascular/tendon intact. Anesthesia: Local anesthetic administered with 2.0 mls of 1% lidocaine. Wound prep: Moderate cleansing with hibiclenz by provider. Skin closed with 5 x 3-0 Ethilon using Simple interrupted sutures. Patient tolerated well. MDM: 18:53 CT Head Without Contrast Ordered. EDMS 18:53 CT Spine,Cervical W/o Contrast Ordered. EDMS 18:55 Tetanus- Diptheria-Acellular Pertussis 0.5 ml IM once; Routine booster 10-64yrs, >64 cs11 with child contact [employer] ordered. 18:57 Forearm (radius/ulna) Ordered. EDMS 19:55 Financial registration complete. [facility] 20:06 [facility] Payment Agreement was scanned into [employer] and attached to record. [facility] 09/06 08:11 T-Sheet-- Draft Copy was scanned into [employer] and attached to record. [facility] Administered Medications: 09/05 19:16 Drug: Tetanus- Diptheria-Acellular Pertussis 0.5 ml [diphth,pertussis(acel),tetanus 2.5 kas2 Lf unit-8 mcg-5 Lf/0.5mL IM syringe (0.5 mL)] {Form Maker Plaster: [employer]. Exp: 10/04/2018. Lot #: [id number]. } Route: IM; Site: right deltoid; Addendum: 09/08/2016 10:29 Addendum: radiology review of CT head demonstrating chronic change vs. small acute sd1 contusion. given setting of trauma d/w charge nurse to have patient return for re-evaluation this am. Signatures: Dispatcher [employer] EDMS Patton-Workman, Park, MD MD sd1 Ousmane Plata, RN RN ml6 Armani Champagne DO DO cs11 Mirta Holloway Kim, RN RN kas2 Park Beckwith The chart was reviewed and I authenticate all verbal orders and agree with the evaluation and treatment provided.Attachments: 09/05 20:06 [facility] Payment Agreement gjb 09/06 08:11 T-Sheet-- Draft Copy [facility] MTDD
--- NOTE | 2016-09-08 10:31 | EDDOCDS ---
Physician Documentation [facility] Name: Rohan Mantilla Age: 75 yrs Sex: Male : 1940 Arrival Date: 09/05/2016 Time: 18:32 Bed 3 Private MD: Osvaldo Disposition: 09/05/16 20:43 Discharged to Home/Self Care. Impression: Laceration without foreign body of left ear, Contusion of unspecified part of head. - Condition is Stable. - Medication Reconciliation, Local Pharmacy Hours form. - Follow up: Osvaldo; When: 1 week; Reason: Staple/Suture removal. - Problem is new. - Symptoms have improved. Historical: - Allergies: no known allergies; - Home Meds: 1. Abilify 2 mg Oral tab 2 mg daily (Last dose: 09/05/2016 08:00) 2. aspirin 81 mg Oral TbEC 1 tab once daily (Last dose: 09/05/2016 08:00) 3. atorvastatin 40 mg oral tab 1 tab once daily (Last dose: 09/05/2016 08:00) 4. B12 1000mcg 1 tab daily (Last dose: 09/05/2016 08:00) 5. bisoprolol fumarate 5 mg oral tab 0.5 tab once daily (Last dose: 09/05/2016 08:00) 6. bupropion HCl 150 mg Oral TbER 2 tab once daily (Last dose: 09/05/2016 08:00) 7. Drisdol 50,000 unit Oral cap 1 cap once wkly (Last dose: 09/05/2016 08:00) 8. indapamide 1.25 mg Oral tab 1 tab every two days (Last dose: 09/05/2016 08:00) 9. Lantus 100 unit/mL Sub-Q soln 12 unit nightly (Last dose: 09/04/2016 20:00) 10. levothyroxine 50 mcg Oral cap once daily (Last dose: 09/05/2016 08:00) 11. Lofibra 200 mg oral cap 1 cap once daily (Last dose: 09/05/2016 08:00) 12. Mapap (acetaminophen) 325 mg oral tab 2 tabs every 4 hours (Last dose: 09/05/2016 08:00) 13. Milk of Magnesia 400 mg/5 mL Oral susp 30 mL once daily (Last dose: 09/05/2016 08:00) 14. mirtazapine 7.5 mg Oral tab 1 tabs once daily (Last dose: 09/05/2016 08:00) 15. Novolin 70/30 Innolet 36 units Sub-Q 70-30 unit/mL (Last dose: 09/05/2016 12:00) 16. venlafaxine 75 mg oral tab 2 tab 2 times per day (Last dose: 09/05/2016 08:00) - PMHx: Anxiety; Atrial Fib; Diabetes; Hypercholesterolemia; Hypertension; Hypothyroidism; kidney disease; - PSHx: Colostomy Construction; - Social history: Smoking status: Patient states former smoker of tobacco. No barriers to communication noted, Speaks appropriately for age. - Family history: Not pertinent. - : The pt / caregiver states he / she is not on anticoagulants. Home medication list is obtained from the patient. - Exposure Risk Screening:: None identified. Vital Signs: 09/05 18:41 BP 143 / 68; Pulse 72; Resp 16; Temp 97.3(O); Pulse Ox 97% on R/A; Weight 95.16 kg / ml6 209.79 lbs (R); Height 5 ft. 8 in. (172.72 cm) (R); Pain 2/10; 18:45 BP 129 / 62 (auto/); kas2 18:45 Pulse 71 MON; Pulse Ox 97% ; kas2 19:00 BP 183 / 84 (auto/); kas2 19:00 Pulse 81 MON; Pulse Ox 96% ; kas2 19:14 BP 139 / 68 (auto/); kas2 19:14 Pulse 73 MON; Pulse Ox 96% ; kas2 19:16 BP 142 / 72 (auto/); kas2 19:16 Pulse 72 MON; Pulse Ox 97% ; kas2 19:31 BP 136 / 64 (auto/); kas2 19:31 Pulse 71 MON; Pulse Ox 93% ; kas2 19:46 BP 133 / 75 (auto/); kas2 19:46 Pulse 72 MON; Pulse Ox 92% ; kas2 19:47 Resp 20; Temp 98.2(O); kas2 20:01 BP 142 / 63 (auto/); kas2 20:01 Pulse 69 MON; Pulse Ox 94% ; kas2 20:16 BP 156 / 88 (auto/); kas2 20:16 Pulse 70 MON; Pulse Ox 96% ; kas2 20:31 BP 153 / 80 (auto/); kas2 20:31 Pulse 70 MON; Pulse Ox 97% ; kas2 20:46 BP 151 / 85 (auto/); kas2 20:46 Pulse 71 MON; Pulse Ox 95% ; kas2 18:41 Body Mass Index 31.90 (95.16 kg, 172.72 cm) ml6 Procedures: 20:36 Laceration repair:. cs11 Laceration: 20:36 Wound Repair of 1.5cm ( 0.6in ) full thickness laceration to left ear. Distal cs11 neuro/vascular/tendon intact. Anesthesia: Local anesthetic administered with 2.0 mls of 1% lidocaine. Wound prep: Moderate cleansing with hibiclenz by provider. Skin closed with 5 x 3-0 Ethilon using Simple interrupted sutures. Patient tolerated well. MDM: 18:53 CT Head Without Contrast Ordered. EDMS 18:53 CT Spine,Cervical W/o Contrast Ordered. EDMS 18:55 Tetanus- Diptheria-Acellular Pertussis 0.5 ml IM once; Routine booster 10-64yrs, >64 cs11 with child contact [place] [employer] ordered. 18:57 Forearm (radius/ulna) Ordered. EDMS 19:55 Financial registration complete. [facility] 20:06 [facility] Payment Agreement was scanned into [employer] and attached to record. [facility] 09/06 08:11 T-Sheet-- Draft Copy was scanned into [employer] and attached to record. [facility] Administered Medications: 09/05 19:16 Drug: Tetanus- Diptheria-Acellular Pertussis 0.5 ml [diphth,pertussis(acel),tetanus 2.5 kas2 Lf unit-8 mcg-5 Lf/0.5mL IM syringe (0.5 mL)] {House Nurse: [email or web address]. Exp: 10/04/2018. Lot #: [id number]. } Route: IM; Site: right deltoid; Addendum: 09/08/2016 10:29 Addendum: radiology review of CT head demonstrating chronic change vs. small acute sd1 contusion. given setting of trauma d/w charge nurse to have patient return for re-evaluation this am. Signatures: Dispatcher [employer] EDMS Patton-Workman, Park, MD MD sd1 Ousmane Plata, RN RN ml6 Armani Champagne DO DO cs11 Mirta Holloway Kim, RN RN kas2 Park Beckwith The chart was reviewed and I authenticate all verbal orders and agree with the evaluation and treatment provided.Attachments: 09/05 20:06 [facility] Payment Agreement gjb 09/06 08:11 T-Sheet-- Draft Copy [facility] MTDD
--- NOTE | 2016-09-08 10:32 | EDDOCDS ---
Physician Documentation [facility] Name: Rohan Mantilla Age: 75 yrs Sex: Male : 1940 Arrival Date: 09/05/2016 Time: 18:32 Bed 3 Private MD: Osvaldo Disposition: 09/05/16 20:43 Discharged to Home/Self Care. Impression: Laceration without foreign body of left ear, Contusion of unspecified part of head. - Condition is Stable. - Medication Reconciliation, Local Pharmacy Hours form. - Follow up: Osvaldo; When: 1 week; Reason: Staple/Suture removal. - Problem is new. - Symptoms have improved. Historical: - Allergies: no known allergies; - Home Meds: 1. Abilify 2 mg Oral tab 2 mg daily (Last dose: 09/05/2016 08:00) 2. aspirin 81 mg Oral TbEC 1 tab once daily (Last dose: 09/05/2016 08:00) 3. atorvastatin 40 mg oral tab 1 tab once daily (Last dose: 09/05/2016 08:00) 4. B12 1000mcg 1 tab daily (Last dose: 09/05/2016 08:00) 5. bisoprolol fumarate 5 mg oral tab 0.5 tab once daily (Last dose: 09/05/2016 08:00) 6. bupropion HCl 150 mg Oral TbER 2 tab once daily (Last dose: 09/05/2016 08:00) 7. Drisdol 50,000 unit Oral cap 1 cap once wkly (Last dose: 09/05/2016 08:00) 8. indapamide 1.25 mg Oral tab 1 tab every two days (Last dose: 09/05/2016 08:00) 9. Lantus 100 unit/mL Sub-Q soln 12 unit nightly (Last dose: 09/04/2016 20:00) 10. levothyroxine 50 mcg Oral cap once daily (Last dose: 09/05/2016 08:00) 11. Lofibra 200 mg oral cap 1 cap once daily (Last dose: 09/05/2016 08:00) 12. Mapap (acetaminophen) 325 mg oral tab 2 tabs every 4 hours (Last dose: 09/05/2016 08:00) 13. Milk of Magnesia 400 mg/5 mL Oral susp 30 mL once daily (Last dose: 09/05/2016 08:00) 14. mirtazapine 7.5 mg Oral tab 1 tabs once daily (Last dose: 09/05/2016 08:00) 15. Novolin 70/30 Innolet 36 units Sub-Q 70-30 unit/mL (Last dose: 09/05/2016 12:00) 16. venlafaxine 75 mg oral tab 2 tab 2 times per day (Last dose: 09/05/2016 08:00) - PMHx: Anxiety; Atrial Fib; Diabetes; Hypercholesterolemia; Hypertension; Hypothyroidism; kidney disease; - PSHx: Colostomy Construction; - Social history: Smoking status: Patient states former smoker of tobacco. No barriers to communication noted, Speaks appropriately for age. - Family history: Not pertinent. - : The pt / caregiver states he / she is not on anticoagulants. Home medication list is obtained from the patient. - Exposure Risk Screening:: None identified. Vital Signs: 09/05 18:41 BP 143 / 68; Pulse 72; Resp 16; Temp 97.3(O); Pulse Ox 97% on R/A; Weight 95.16 kg / ml6 209.79 lbs (R); Height 5 ft. 8 in. (172.72 cm) (R); Pain 2/10; 18:45 BP 129 / 62 (auto/); kas2 18:45 Pulse 71 MON; Pulse Ox 97% ; kas2 19:00 BP 183 / 84 (auto/); kas2 19:00 Pulse 81 MON; Pulse Ox 96% ; kas2 19:14 BP 139 / 68 (auto/); kas2 19:14 Pulse 73 MON; Pulse Ox 96% ; kas2 19:16 BP 142 / 72 (auto/); kas2 19:16 Pulse 72 MON; Pulse Ox 97% ; kas2 19:31 BP 136 / 64 (auto/); kas2 19:31 Pulse 71 MON; Pulse Ox 93% ; kas2 19:46 BP 133 / 75 (auto/); kas2 19:46 Pulse 72 MON; Pulse Ox 92% ; kas2 19:47 Resp 20; Temp 98.2(O); kas2 20:01 BP 142 / 63 (auto/); kas2 20:01 Pulse 69 MON; Pulse Ox 94% ; kas2 20:16 BP 156 / 88 (auto/); kas2 20:16 Pulse 70 MON; Pulse Ox 96% ; kas2 20:31 BP 153 / 80 (auto/); kas2 20:31 Pulse 70 MON; Pulse Ox 97% ; kas2 20:46 BP 151 / 85 (auto/); kas2 20:46 Pulse 71 MON; Pulse Ox 95% ; kas2 18:41 Body Mass Index 31.90 (95.16 kg, 172.72 cm) ml6 Procedures: 20:36 Laceration repair:. cs11 Laceration: 20:36 Wound Repair of 1.5cm ( 0.6in ) full thickness laceration to left ear. Distal cs11 neuro/vascular/tendon intact. Anesthesia: Local anesthetic administered with 2.0 mls of 1% lidocaine. Wound prep: Moderate cleansing with hibiclenz by provider. Skin closed with 5 x 3-0 Ethilon using Simple interrupted sutures. Patient tolerated well. MDM: 18:53 CT Head Without Contrast Ordered. EDMS 18:53 CT Spine,Cervical W/o Contrast Ordered. EDMS 18:55 Tetanus- Diptheria-Acellular Pertussis 0.5 ml IM once; Routine booster 10-64yrs, >64 cs11 with child contact [place] [employer] ordered. 18:57 Forearm (radius/ulna) Ordered. EDMS 19:55 Financial registration complete. [facility] 20:06 [facility] Payment Agreement was scanned into [employer] and attached to record. [facility] 09/06 08:11 T-Sheet-- Draft Copy was scanned into [employer] and attached to record. [facility] Administered Medications: 09/05 19:16 Drug: Tetanus- Diptheria-Acellular Pertussis 0.5 ml [diphth,pertussis(acel),tetanus 2.5 kas2 Lf unit-8 mcg-5 Lf/0.5mL IM syringe (0.5 mL)] {Film Reproducer: [employer]. Exp: 10/04/2018. Lot #: [id number]. } Route: IM; Site: right deltoid; Addendum: 09/08/2016 10:29 Addendum: radiology review of CT head demonstrating chronic change vs. small acute sd1 contusion. given setting of trauma d/w charge nurse to have patient return for re-evaluation this am. Signatures: Dispatcher [employer] EDMS Patton-Workman, Park, MD MD sd1 Ousmane Plata, RN RN ml6 Armani Champagne DO DO cs11 Mirta Holloway Kim, RN RN kas2 Park Beckwith The chart was reviewed and I authenticate all verbal orders and agree with the evaluation and treatment provided.Attachments: 09/05 20:06 [facility] [place] [facility] Payment Agreement gjb 09/06 08:11 T-Sheet-- Draft Copy [facility] Chart Complete MTDD
--- NOTE | 2016-09-08 10:32 | EDDOCDS ---
Physician Documentation [facility] Name: Rohan Mantilla Age: 75 yrs Sex: Male : 1940 Arrival Date: 09/05/2016 Time: 18:32 Bed 3 Private MD: Osvaldo Disposition: 09/05/16 20:43 Discharged to Home/Self Care. Impression: Laceration without foreign body of left ear, Contusion of unspecified part of head. - Condition is Stable. - Medication Reconciliation, Local Pharmacy Hours form. - Follow up: Osvaldo; When: 1 week; Reason: Staple/Suture removal. - Problem is new. - Symptoms have improved. Historical: - Allergies: no known allergies; - Home Meds: 1. Abilify 2 mg Oral tab 2 mg daily (Last dose: 09/05/2016 08:00) 2. aspirin 81 mg Oral TbEC 1 tab once daily (Last dose: 09/05/2016 08:00) 3. atorvastatin 40 mg oral tab 1 tab once daily (Last dose: 09/05/2016 08:00) 4. B12 1000mcg 1 tab daily (Last dose: 09/05/2016 08:00) 5. bisoprolol fumarate 5 mg oral tab 0.5 tab once daily (Last dose: 09/05/2016 08:00) 6. bupropion HCl 150 mg Oral TbER 2 tab once daily (Last dose: 09/05/2016 08:00) 7. Drisdol 50,000 unit Oral cap 1 cap once wkly (Last dose: 09/05/2016 08:00) 8. indapamide 1.25 mg Oral tab 1 tab every two days (Last dose: 09/05/2016 08:00) 9. Lantus 100 unit/mL Sub-Q soln 12 unit nightly (Last dose: 09/04/2016 20:00) 10. levothyroxine 50 mcg Oral cap once daily (Last dose: 09/05/2016 08:00) 11. Lofibra 200 mg oral cap 1 cap once daily (Last dose: 09/05/2016 08:00) 12. Mapap (acetaminophen) 325 mg oral tab 2 tabs every 4 hours (Last dose: 09/05/2016 08:00) 13. Milk of Magnesia 400 mg/5 mL Oral susp 30 mL once daily (Last dose: 09/05/2016 08:00) 14. mirtazapine 7.5 mg Oral tab 1 tabs once daily (Last dose: 09/05/2016 08:00) 15. Novolin 70/30 Innolet 36 units Sub-Q 70-30 unit/mL (Last dose: 09/05/2016 12:00) 16. venlafaxine 75 mg oral tab 2 tab 2 times per day (Last dose: 09/05/2016 08:00) - PMHx: Anxiety; Atrial Fib; Diabetes; Hypercholesterolemia; Hypertension; Hypothyroidism; kidney disease; - PSHx: Colostomy Construction; - Social history: Smoking status: Patient states former smoker of tobacco. No barriers to communication noted, Speaks appropriately for age. - Family history: Not pertinent. - : The pt / caregiver states he / she is not on anticoagulants. Home medication list is obtained from the patient. - Exposure Risk Screening:: None identified. Vital Signs: 09/05 18:41 BP 143 / 68; Pulse 72; Resp 16; Temp 97.3(O); Pulse Ox 97% on R/A; Weight 95.16 kg / ml6 209.79 lbs (R); Height 5 ft. 8 in. (172.72 cm) (R); Pain 2/10; 18:45 BP 129 / 62 (auto/); kas2 18:45 Pulse 71 MON; Pulse Ox 97% ; kas2 19:00 BP 183 / 84 (auto/); kas2 19:00 Pulse 81 MON; Pulse Ox 96% ; kas2 19:14 BP 139 / 68 (auto/); kas2 19:14 Pulse 73 MON; Pulse Ox 96% ; kas2 19:16 BP 142 / 72 (auto/); kas2 19:16 Pulse 72 MON; Pulse Ox 97% ; kas2 19:31 BP 136 / 64 (auto/); kas2 19:31 Pulse 71 MON; Pulse Ox 93% ; kas2 19:46 BP 133 / 75 (auto/); kas2 19:46 Pulse 72 MON; Pulse Ox 92% ; kas2 19:47 Resp 20; Temp 98.2(O); kas2 20:01 BP 142 / 63 (auto/); kas2 20:01 Pulse 69 MON; Pulse Ox 94% ; kas2 20:16 BP 156 / 88 (auto/); kas2 20:16 Pulse 70 MON; Pulse Ox 96% ; kas2 20:31 BP 153 / 80 (auto/); kas2 20:31 Pulse 70 MON; Pulse Ox 97% ; kas2 20:46 BP 151 / 85 (auto/); kas2 20:46 Pulse 71 MON; Pulse Ox 95% ; kas2 18:41 Body Mass Index 31.90 (95.16 kg, 172.72 cm) ml6 Procedures: 20:36 Laceration repair:. cs11 Laceration: 20:36 Wound Repair of 1.5cm ( 0.6in ) full thickness laceration to left ear. Distal cs11 neuro/vascular/tendon intact. Anesthesia: Local anesthetic administered with 2.0 mls of 1% lidocaine. Wound prep: Moderate cleansing with hibiclenz by provider. Skin closed with 5 x 3-0 Ethilon using Simple interrupted sutures. Patient tolerated well. MDM: 18:53 CT Head Without Contrast Ordered. EDMS 18:53 CT Spine,Cervical W/o Contrast Ordered. EDMS 18:55 Tetanus- Diptheria-Acellular Pertussis 0.5 ml IM once; Routine booster 10-64yrs, >64 cs11 with child contact [place] [employer] ordered. 18:57 Forearm (radius/ulna) Ordered. EDMS 19:55 Financial registration complete. [facility] 20:06 [facility] Payment Agreement was scanned into [employer] and attached to record. [facility] 09/06 08:11 T-Sheet-- Draft Copy was scanned into [employer] and attached to record. [facility] Administered Medications: 09/05 19:16 Drug: Tetanus- Diptheria-Acellular Pertussis 0.5 ml [diphth,pertussis(acel),tetanus 2.5 kas2 Lf unit-8 mcg-5 Lf/0.5mL IM syringe (0.5 mL)] {Medical Technicians: [employer]. Exp: 10/04/2018. Lot #: [id number]. } Route: IM; Site: right deltoid; Addendum: 09/08/2016 10:29 Addendum: radiology review of CT head demonstrating chronic change vs. small acute sd1 contusion. given setting of trauma d/w charge nurse to have patient return for re-evaluation this am. Signatures: Dispatcher [employer] EDMS Patton-Workman, Park, MD MD sd1 Ousmane Plata, RN RN ml6 Armani Champagne DO DO cs11 Mirta Holloway Kim, RN RN kas2 Park Beckwith The chart was reviewed and I authenticate all verbal orders and agree with the evaluation and treatment provided.Attachments: 09/05 20:06 [facility] [place] gjb 09/06 08:11 T-Sheet-- Draft Copy [facility] Chart Complete MTDD
--- NOTE | 2016-09-08 10:32 | EDDOCDS ---
Nurse's Notes [facility] Name: Rohan Mantilla Age: 75 yrs Sex: Male : 1940 Arrival Date: 09/05/2016 Time: 18:32 Bed 3 Private MD: Osvaldo Diagnosis: Laceration without foreign body of left ear;Contusion of unspecified part of head Presentation: 09/05 18:40 Presenting complaint: Patient states: states that he attempted to get into his chair ml6 without his walker, patient states that he became dizzy and fell sideways striking his right ear on table. Adult Sepsis Screening: The patient does not have new or worsening altered mentation. Patient's respiratory rate is less than 22. Systolic blood pressure is greater than 100. Patient has a qSOFA score of 0- Negative Sepsis Screen. Suicide/Homicide risk assessment- the patient denies having any suicidal and/or homicidal ideations and does not present with any other emotional, behavioral or mental health complaints. Status: Patient is not a manager technical services or dependent. Transition of care: patient was not received from another setting of care. 18:40 Acuity: CIARA Level 3 ml6 18:40 Method Of Arrival: Walkin/Carried/Asstd ml6 Triage Assessment: 18:46 General: Appears in no apparent distress, Behavior is appropriate for age, cooperative. ml6 Pain: Location: left ear and palmar aspect of left forearm Pain currently is 3 out of 10 on a pain scale. Pain does not radiate. Quality of pain is described as aching, Pain began 30 min ago Is continuous. The patient is triaged at the bedside. See Assessment in Nurses Notes section of ED record. Neurological: No deficits noted. Level of Consciousness is awake, alert, Oriented to person, place, time, Pan Cleaner are equal bilaterally Moves all extremities. Full function Gait is steady, Speech is normal. Cardiovascular: No deficits noted. Capillary refill < 3 seconds is brisk in bilateral fingers toes. Musculoskeletal: cervical spine is non-tender. Circulation, motion, and sensation intact Signs and Symptoms of Compartment Syndrome: no signs of compartment syndrome. Injury Description: pt fell from standing. Historical: - Allergies: no known allergies; - Home Meds: 1. Abilify 2 mg Oral tab 2 mg daily (Last dose: 09/05/2016 08:00) 2. aspirin 81 mg Oral TbEC 1 tab once daily (Last dose: 09/05/2016 08:00) 3. atorvastatin 40 mg oral tab 1 tab once daily (Last dose: 09/05/2016 08:00) 4. B12 1000mcg 1 tab daily (Last dose: 09/05/2016 08:00) 5. bisoprolol fumarate 5 mg oral tab 0.5 tab once daily (Last dose: 09/05/2016 08:00) 6. bupropion HCl 150 mg Oral TbER 2 tab once daily (Last dose: 09/05/2016 08:00) 7. Drisdol 50,000 unit Oral cap 1 cap once wkly (Last dose: 09/05/2016 08:00) 8. indapamide 1.25 mg Oral tab 1 tab every two days (Last dose: 09/05/2016 08:00) 9. Lantus 100 unit/mL Sub-Q soln 12 unit nightly (Last dose: 09/04/2016 20:00) 10. levothyroxine 50 mcg Oral cap once daily (Last dose: 09/05/2016 08:00) 11. Lofibra 200 mg oral cap 1 cap once daily (Last dose: 09/05/2016 08:00) 12. Mapap (acetaminophen) 325 mg oral tab 2 tabs every 4 hours (Last dose: 09/05/2016 08:00) 13. Milk of Magnesia 400 mg/5 mL Oral susp 30 mL once daily (Last dose: 09/05/2016 08:00) 14. mirtazapine 7.5 mg Oral tab 1 tabs once daily (Last dose: 09/05/2016 08:00) 15. Novolin 70/30 Innolet 36 units Sub-Q 70-30 unit/mL (Last dose: 09/05/2016 12:00) 16. venlafaxine 75 mg oral tab 2 tab 2 times per day (Last dose: 09/05/2016 08:00) - PMHx: Anxiety; Atrial Fib; Diabetes; Hypercholesterolemia; Hypertension; Hypothyroidism; kidney disease; - PSHx: Colostomy Construction; - Social history: Smoking status: Patient states former smoker of tobacco. No barriers to communication noted, Speaks appropriately for age. - Family history: Not pertinent. - : The pt / caregiver states he / she is not on anticoagulants. Home medication list is obtained from the patient. - Exposure Risk Screening:: None identified. Screenin:47 Screening information is obtained from the patient. Fall risk: No risks identified. ml6 Assistance ADL's: requires no assistance with activities of daily living. Abuse/DV Screen: The patient / caregiver reports he/she is: not in a situation that causes fear, pain or injury. Nutritional screening: No deficits noted. Advance Directives: Currently, there is no health care proxy. home support is adequate. Assessment: 18:47 General: see triage assessment. 6 19:02 General: Verbal report given by Vikash Plata RN. Assumed care of patient at this time.. kas2 19:45 General: Appears in no apparent distress, comfortable, well nourished, well groomed, kas2 Behavior is appropriate for age, cooperative. Pain: Location: left arm and left ear and palmar aspect of left forearm Pain currently is 4 out of 10 on a pain scale. Neurological: Level of Consciousness is awake, alert, Oriented to person, place, time. Cardiovascular: Capillary refill < 3 seconds Heart tones S1 S2 present Rhythm is sinus rhythm No ectopy. Respiratory: Airway is patent Respiratory effort is even, unlabored, Respiratory pattern is regular, symmetrical, Breath sounds are clear bilaterally. Derm: Skin is intact, is healthy with good turgor, Skin is dry, Skin is pink, warm & dry. Skin temperature is warm. Injury Description: Laceration sustained to left ear. 20:23 General: Dr. Champagne in the room suturing up left ear at this time.. kas2 20:45 General: Patient sitting up in bed with no complaints of pain or discomfort at this kas2 time. Bleeding controlled to left ear. No apparent distress. Call khan within reach. Will continue to monitor at this time.. 21:02 General: Report called to Nursing supervisor water treatment plant Luh NINO at [facility] assisted living.. kas2 Vital Signs: 18:41 BP 143 / 68; Pulse 72; Resp 16; Temp 97.3(O); Pulse Ox 97% on R/A; Weight 95.16 kg (R); ml6 Height 5 ft. 8 in. (172.72 cm) (R); Pain 2/10; 18:45 BP 129 / 62 (auto/); kas2 18:45 Pulse 71 MON; Pulse Ox 97% ; kas2 19:00 BP 183 / 84 (auto/); kas2 19:00 Pulse 81 MON; Pulse Ox 96% ; kas2 19:14 BP 139 / 68 (auto/); kas2 19:14 Pulse 73 MON; Pulse Ox 96% ; kas2 19:16 BP 142 / 72 (auto/); kas2 19:16 Pulse 72 MON; Pulse Ox 97% ; kas2 19:31 BP 136 / 64 (auto/); kas2 19:31 Pulse 71 MON; Pulse Ox 93% ; kas2 19:46 BP 133 / 75 (auto/); kas2 19:46 Pulse 72 MON; Pulse Ox 92% ; kas2 19:47 Resp 20; Temp 98.2(O); kas2 20:01 BP 142 / 63 (auto/); kas2 20:01 Pulse 69 MON; Pulse Ox 94% ; kas2 20:16 BP 156 / 88 (auto/); kas2 20:16 Pulse 70 MON; Pulse Ox 96% ; kas2 20:31 BP 153 / 80 (auto/); kas2 20:31 Pulse 70 MON; Pulse Ox 97% ; kas2 20:46 BP 151 / 85 (auto/); kas2 20:46 Pulse 71 MON; Pulse Ox 95% ; kas2 18:41 Body Mass Index 31.90 (95.16 kg, 172.72 cm) 6 Vitals: 18:41 Log In Time N/A - ambulance arrival. 6 ED Course: 18:33 Patient visited by Cari Ibrahim Luncheonette Manager. lbd 18:33 [place] is Private Physician. lbd 18:33 Patient moved to Waiting lbd 18:34 Ousmane Plata, RN is Primary Nurse. lbd 18:34 Patient moved to 3 lbd 18:41 Triage Initiated ml6 18:47 The patient / caregiver is instructed regarding the plan of care and ED course. ml6 18:53 Armani Champagne DO is Attending Physician. cs11 18:53 Patient visited by Armani Champagne DO. cs11 19:02 Zuri Owens,MICA is Primary Nurse. kas2 19:03 Patient visited by Zuri Owens,MICA. kas2 19:47 Patient visited by Zuri Owens RN. kas2 20:04 CT Head Without Contrast Returned. EDMS 20:04 CT Spine,Cervical W/o Contrast Returned. EDMS 20:04 Forearm (radius/ulna) Returned. EDMS 20:06 [facility] Payment Agreement was scanned into [employer] and attached to record. gjb 20:20 Patient visited by Zuri Owens RN. kas2 20:23 Patient visited by Zuri Owens RN. kas2 20:40 Osvaldo is Referral Physician. cs11 21:01 No IV's were initiated during this patient's visit. No procedures done that require kas2 assistance. 21:02 Patient visited by Zuri Owens RN. kas2 09/06 08:11 T-Sheet-- Draft Copy was scanned into [employer] and attached to record. [facility] Administered Medications: 09/05 19:16 Drug: Tetanus- Diptheria-Acellular Pertussis 0.5 ml [diphth,pertussis(acel),tetanus 2.5 kas2 Lf unit-8 mcg-5 Lf/0.5mL IM syringe (0.5 mL)] {Tube Carrier: [employer]. Exp: 10/04/2018. Lot #: [id number]. } Route: IM; Site: right deltoid; Order Results: Radiology Order: CT Head Without Contrast Test: CT Head Without Contrast REASON FOR EXAMINATION: Trauma; Clinical: Trauma.; ; Comparison: 05/18/2016.; ; Findings:; ; There is a very small hyperdense focus along the right post central gyrus (image; 23) while this may reflect chronic change, a very small contusion cannot be; excluded.; ; The ventricles and sulci are otherwise symmetric and demonstrate atrophic; changes. The vazquez-white differentiation is maintained without evidence for acute; infarction. No further intracranial hemorrhage mass or mass effect is; identified. No extra-axial fluid collection is appreciated. The calvarium is; intact the sinuses are clear.; ; ; Impression:; Very small hyperdense focus along the right post central gyrus may reflect; chronic change versus small acute contusion.; No further acute intracranial hemorrhage, infarction, or mass/mass effect.; Age related atrophy and microvascular ischemic changes.; ; ; Signed by; Elkin Cabello MD 09/05/2016 07:15 P; Radiology Order: CT Spine,Cervical W/o Contrast Test: CT Spine,Cervical W/o Contrast REASON FOR EXAMINATION: Trauma; Clinical: Trauma.; ; Technique: Axial noncontrast images from the skull base to the thoracic inlet; with coronal and sagittal re-formations.; ; Findings:; Straightening of normal lordosis is secondary to positioning versus pain/spasm.; Osteopenia and advanced multilevel degenerative changes includes anterior and; posterior osteophytosis along with posterior longitudinal ligament; calcifications, endplate sclerosis and disc space narrowing. 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 Partial; fusion at C7-T1. No obvious acute fracture / compression injury or subluxation.; Posterior elements and spinous processes demonstrate degenerative changes without; acute fracture. Paravertebral soft tissues are grossly normal.; ; Impression:; Osteopenia and multilevel degenerative changes as described above.; Straightening of normal lordosis likely chronic and related to positioning.; No acute fracture / compression injury or subluxation identified.; ; ; Signed by; Elkin Cabello MD 09/05/2016 07:19 P; Radiology Order: Forearm (radius/ulna) Test: Forearm (radius/ulna) REASON FOR EXAMINATION: Trauma; Clinical: Trauma.; ; Technique: AP and lateral views of the left forearm.; ; Findings:; Age-related osteopenia and degenerative changes at the wrist and elbow are; suggested. No obvious acute fracture or dislocation. No subcutaneous emphysema; or radiodense foreign body.; ; Impression:; Age-related changes. No acute fracture or dislocation identified.; ; ; Signed by; Elkin Cabello MD 09/05/2016 07:36 P; Outcome: 20:43 Discharge ordered by Provider. 11 21:01 Discharge Assessment: patient administered narcotics - no. The following High Risk [facility] Discharge criteria are identified: None. Discharged to Extended [facility] assisted. Condition: good Condition: stable Condition: improved. CT Study completed. Property :Personal belongings accompany Pt. 21:02 Patient left the ED. [facility] Signatures: Dispatcher [employer] EDMS Cari Ibrahim, Luncheonette Manager Unit lbd Ousmane Plata RN RN ml6 Armani Champagne DO DO cs11 Mirta Holloway Kim, RN RN kas2 Park Beckwith Chart Complete MTDD
--- NOTE | 2016-09-08 10:57 | EDDOCDS ---
Physician Documentation [facility] Name: Rohan Mantilla Age: 75 yrs Sex: Male : 1940 Arrival Date: 09/05/2016 Time: 18:32 Bed 3 Private MD: Osvaldo Disposition: 09/05/16 20:43 Discharged to Home/Self Care. Impression: Laceration without foreign body of left ear, Contusion of unspecified part of head. - Condition is Stable. - Medication Reconciliation, Local Pharmacy Hours form. - Follow up: Osvaldo; When: 1 week; Reason: Staple/Suture removal. - Problem is new. - Symptoms have improved. Historical: - Allergies: no known allergies; - Home Meds: 1. Abilify 2 mg Oral tab 2 mg daily (Last dose: 09/05/2016 08:00) 2. aspirin 81 mg Oral TbEC 1 tab once daily (Last dose: 09/05/2016 08:00) 3. atorvastatin 40 mg oral tab 1 tab once daily (Last dose: 09/05/2016 08:00) 4. B12 1000mcg 1 tab daily (Last dose: 09/05/2016 08:00) 5. bisoprolol fumarate 5 mg oral tab 0.5 tab once daily (Last dose: 09/05/2016 08:00) 6. bupropion HCl 150 mg Oral TbER 2 tab once daily (Last dose: 09/05/2016 08:00) 7. Drisdol 50,000 unit Oral cap 1 cap once wkly (Last dose: 09/05/2016 08:00) 8. indapamide 1.25 mg Oral tab 1 tab every two days (Last dose: 09/05/2016 08:00) 9. Lantus 100 unit/mL Sub-Q soln 12 unit nightly (Last dose: 09/04/2016 20:00) 10. levothyroxine 50 mcg Oral cap once daily (Last dose: 09/05/2016 08:00) 11. Lofibra 200 mg oral cap 1 cap once daily (Last dose: 09/05/2016 08:00) 12. Mapap (acetaminophen) 325 mg oral tab 2 tabs every 4 hours (Last dose: 09/05/2016 08:00) 13. Milk of Magnesia 400 mg/5 mL Oral susp 30 mL once daily (Last dose: 09/05/2016 08:00) 14. mirtazapine 7.5 mg Oral tab 1 tabs once daily (Last dose: 09/05/2016 08:00) 15. Novolin 70/30 Innolet 36 units Sub-Q 70-30 unit/mL (Last dose: 09/05/2016 12:00) 16. venlafaxine 75 mg oral tab 2 tab 2 times per day (Last dose: 09/05/2016 08:00) - PMHx: Anxiety; Atrial Fib; Diabetes; Hypercholesterolemia; Hypertension; Hypothyroidism; kidney disease; - PSHx: Colostomy Construction; - Social history: Smoking status: Patient states former smoker of tobacco. No barriers to communication noted, Speaks appropriately for age. - Family history: Not pertinent. - : The pt / caregiver states he / she is not on anticoagulants. Home medication list is obtained from the patient. - Exposure Risk Screening:: None identified. Vital Signs: 09/05 18:41 BP 143 / 68; Pulse 72; Resp 16; Temp 97.3(O); Pulse Ox 97% on R/A; Weight 95.16 kg / ml6 209.79 lbs (R); Height 5 ft. 8 in. (172.72 cm) (R); Pain 2/10; 18:45 BP 129 / 62 (auto/); kas2 18:45 Pulse 71 MON; Pulse Ox 97% ; kas2 19:00 BP 183 / 84 (auto/); kas2 19:00 Pulse 81 MON; Pulse Ox 96% ; kas2 19:14 BP 139 / 68 (auto/); kas2 19:14 Pulse 73 MON; Pulse Ox 96% ; kas2 19:16 BP 142 / 72 (auto/); kas2 19:16 Pulse 72 MON; Pulse Ox 97% ; kas2 19:31 BP 136 / 64 (auto/); kas2 19:31 Pulse 71 MON; Pulse Ox 93% ; kas2 19:46 BP 133 / 75 (auto/); kas2 19:46 Pulse 72 MON; Pulse Ox 92% ; kas2 19:47 Resp 20; Temp 98.2(O); kas2 20:01 BP 142 / 63 (auto/); kas2 20:01 Pulse 69 MON; Pulse Ox 94% ; kas2 20:16 BP 156 / 88 (auto/); kas2 20:16 Pulse 70 MON; Pulse Ox 96% ; kas2 20:31 BP 153 / 80 (auto/); kas2 20:31 Pulse 70 MON; Pulse Ox 97% ; kas2 20:46 BP 151 / 85 (auto/); kas2 20:46 Pulse 71 MON; Pulse Ox 95% ; kas2 18:41 Body Mass Index 31.90 (95.16 kg, 172.72 cm) ml6 Procedures: 20:36 Laceration repair:. cs11 Laceration: 20:36 Wound Repair of 1.5cm ( 0.6in ) full thickness laceration to left ear. Distal cs11 neuro/vascular/tendon intact. Anesthesia: Local anesthetic administered with 2.0 mls of 1% lidocaine. Wound prep: Moderate cleansing with hibiclenz by provider. Skin closed with 5 x 3-0 Ethilon using Simple interrupted sutures. Patient tolerated well. MDM: 18:53 CT Head Without Contrast Ordered. EDMS 18:53 CT Spine,Cervical W/o Contrast Ordered. EDMS 18:55 Tetanus- Diptheria-Acellular Pertussis 0.5 ml IM once; Routine booster 10-64yrs, >64 cs11 with child contact [place] [employer] ordered. 18:57 Forearm (radius/ulna) Ordered. EDMS 19:55 Financial registration complete. [facility] 20:06 [facility] Payment Agreement was scanned into [employer] and attached to record. [facility] 09/06 08:11 T-Sheet-- Draft Copy was scanned into [employer] and attached to record. 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 Exp: 10/04/2018. Lot #: [id number]. } Route: IM; Site: right deltoid; Addendum: 09/08/2016 10:29 Addendum: radiology review of CT head demonstrating chronic change vs. small acute sd1 contusion. given setting of trauma d/w charge nurse to have patient return for re-evaluation this am. Signatures: Dispatcher [employer] EDMS Patton-Workman, Park, MD MD sd1 Ousmane Plata, RN RN ml6 Armani Champagne DO DO cs11 Mirta Holloway Kim, RN RN kas2 Park Beckwith The chart was reviewed and I authenticate all verbal orders and agree with the evaluation and treatment provided.Attachments: 09/05 20:06 [facility] Payment Agreement gjb 09/06 08:11 T-Sheet-- Draft Copy [facility] MTDD
--- NOTE | 2016-09-08 10:57 | EDDOCDS ---
Physician Documentation [facility] Name: Rohan Mantilla Age: 75 yrs Sex: Male : 1940 Arrival Date: 09/05/2016 Time: 18:32 Bed 3 Private MD: Osvaldo Disposition: 09/05/16 20:43 Discharged to Home/Self Care. Impression: Laceration without foreign body of left ear, Contusion of unspecified part of head. - Condition is Stable. - Medication Reconciliation, Local Pharmacy Hours form. - Follow up: Osvaldo; When: 1 week; Reason: Staple/Suture removal. - Problem is new. - Symptoms have improved. Historical: - Allergies: no known allergies; - Home Meds: 1. Abilify 2 mg Oral tab 2 mg daily (Last dose: 09/05/2016 08:00) 2. aspirin 81 mg Oral TbEC 1 tab once daily (Last dose: 09/05/2016 08:00) 3. atorvastatin 40 mg oral tab 1 tab once daily (Last dose: 09/05/2016 08:00) 4. B12 1000mcg 1 tab daily (Last dose: 09/05/2016 08:00) 5. bisoprolol fumarate 5 mg oral tab 0.5 tab once daily (Last dose: 09/05/2016 08:00) 6. bupropion HCl 150 mg Oral TbER 2 tab once daily (Last dose: 09/05/2016 08:00) 7. Drisdol 50,000 unit Oral cap 1 cap once wkly (Last dose: 09/05/2016 08:00) 8. indapamide 1.25 mg Oral tab 1 tab every two days (Last dose: 09/05/2016 08:00) 9. Lantus 100 unit/mL Sub-Q soln 12 unit nightly (Last dose: 09/04/2016 20:00) 10. levothyroxine 50 mcg Oral cap once daily (Last dose: 09/05/2016 08:00) 11. Lofibra 200 mg oral cap 1 cap once daily (Last dose: 09/05/2016 08:00) 12. Mapap (acetaminophen) 325 mg oral tab 2 tabs every 4 hours (Last dose: 09/05/2016 08:00) 13. Milk of Magnesia 400 mg/5 mL Oral susp 30 mL once daily (Last dose: 09/05/2016 08:00) 14. mirtazapine 7.5 mg Oral tab 1 tabs once daily (Last dose: 09/05/2016 08:00) 15. Novolin 70/30 Innolet 36 units Sub-Q 70-30 unit/mL (Last dose: 09/05/2016 12:00) 16. venlafaxine 75 mg oral tab 2 tab 2 times per day (Last dose: 09/05/2016 08:00) - PMHx: Anxiety; Atrial Fib; Diabetes; Hypercholesterolemia; Hypertension; Hypothyroidism; kidney disease; - PSHx: Colostomy Construction; - Social history: Smoking status: Patient states former smoker of tobacco. No barriers to communication noted, Speaks appropriately for age. - Family history: Not pertinent. - : The pt / caregiver states he / she is not on anticoagulants. Home medication list is obtained from the patient. - Exposure Risk Screening:: None identified. Vital Signs: 09/05 18:41 BP 143 / 68; Pulse 72; Resp 16; Temp 97.3(O); Pulse Ox 97% on R/A; Weight 95.16 kg / ml6 209.79 lbs (R); Height 5 ft. 8 in. (172.72 cm) (R); Pain 2/10; 18:45 BP 129 / 62 (auto/); kas2 18:45 Pulse 71 MON; Pulse Ox 97% ; kas2 19:00 BP 183 / 84 (auto/); kas2 19:00 Pulse 81 MON; Pulse Ox 96% ; kas2 19:14 BP 139 / 68 (auto/); kas2 19:14 Pulse 73 MON; Pulse Ox 96% ; kas2 19:16 BP 142 / 72 (auto/); kas2 19:16 Pulse 72 MON; Pulse Ox 97% ; kas2 19:31 BP 136 / 64 (auto/); kas2 19:31 Pulse 71 MON; Pulse Ox 93% ; kas2 19:46 BP 133 / 75 (auto/); kas2 19:46 Pulse 72 MON; Pulse Ox 92% ; kas2 19:47 Resp 20; Temp 98.2(O); kas2 20:01 BP 142 / 63 (auto/); kas2 20:01 Pulse 69 MON; Pulse Ox 94% ; kas2 20:16 BP 156 / 88 (auto/); kas2 20:16 Pulse 70 MON; Pulse Ox 96% ; kas2 20:31 BP 153 / 80 (auto/); kas2 20:31 Pulse 70 MON; Pulse Ox 97% ; kas2 20:46 BP 151 / 85 (auto/); kas2 20:46 Pulse 71 MON; Pulse Ox 95% ; kas2 18:41 Body Mass Index 31.90 (95.16 kg, 172.72 cm) ml6 Procedures: 20:36 Laceration repair:. cs11 Laceration: 20:36 Wound Repair of 1.5cm ( 0.6in ) full thickness laceration to left ear. Distal cs11 neuro/vascular/tendon intact. Anesthesia: Local anesthetic administered with 2.0 mls of 1% lidocaine. Wound prep: Moderate cleansing with hibiclenz by provider. Skin closed with 5 x 3-0 Ethilon using Simple interrupted sutures. Patient tolerated well. MDM: 18:53 CT Head Without Contrast Ordered. EDMS 18:53 CT Spine,Cervical W/o Contrast Ordered. EDMS 18:55 Tetanus- Diptheria-Acellular Pertussis 0.5 ml IM once; Routine booster 10-64yrs, >64 cs11 with child contact [place] [employer] ordered. 18:57 Forearm (radius/ulna) Ordered. EDMS 19:55 Financial registration complete. [facility] 20:06 [facility] Payment Agreement was scanned into [employer] and attached to record. [facility] 09/06 08:11 T-Sheet-- Draft Copy was scanned into [employer] and attached to record. 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 Exp: 10/04/2018. Lot #: [id number]. } Route: IM; Site: right deltoid; Addendum: 09/08/2016 10:29 Addendum: radiology review of CT head demonstrating chronic change vs. small acute sd1 contusion. given setting of trauma d/w charge nurse to have patient return for re-evaluation this am. Signatures: Dispatcher [employer] EDMS Patton-Workman, Park, MD MD sd1 Ousmane Plata, RN RN ml6 Armani Champagne DO DO cs11 Mirta Holloway Kim, RN RN kas2 Park Beckwith The chart was reviewed and I authenticate all verbal orders and agree with the evaluation and treatment provided.Attachments: 09/05 20:06 [facility] [place] Agreement gjb 09/06 08:11 T-Sheet-- Draft Copy [facility] MTDD
--- NOTE | 2016-09-08 10:57 | EDDOCDS ---
Nurse's Notes [facility] Name: Rohan Mantilla Age: 75 yrs Sex: Male : 1940 Arrival Date: 09/05/2016 Time: 18:32 Bed 3 Private MD: Osvaldo Diagnosis: Laceration without foreign body of left ear;Contusion of unspecified part of head Presentation: 09/05 18:40 Presenting complaint: Patient states: states that he attempted to get into his chair ml6 without his walker, patient states that he became dizzy and fell sideways striking his right ear on table. Adult Sepsis Screening: The patient does not have new or worsening altered mentation. Patient's respiratory rate is less than 22. Systolic blood pressure is greater than 100. Patient has a qSOFA score of 0- Negative Sepsis Screen. Suicide/Homicide risk assessment- the patient denies having any suicidal and/or homicidal ideations and does not present with any other emotional, behavioral or mental health complaints. Status: Patient is not a environmental services tech or dependent. Transition of care: patient was not received from another setting of care. 18:40 Acuity: CIARA Level 3 ml6 18:40 Method Of Arrival: Walkin/Carried/Asstd ml6 Triage Assessment: 18:46 General: Appears in no apparent distress, Behavior is appropriate for age, cooperative. ml6 Pain: Location: left ear and palmar aspect of left forearm Pain currently is 3 out of 10 on a pain scale. Pain does not radiate. Quality of pain is described as aching, Pain began 30 min ago Is continuous. The patient is triaged at the bedside. See Assessment in Nurses Notes section of ED record. Neurological: No deficits noted. Level of Consciousness is awake, alert, Oriented to person, place, time, Molasses Preparer are equal bilaterally Moves all extremities. Full function Gait is steady, Speech is normal. Cardiovascular: No deficits noted. Capillary refill < 3 seconds is brisk in bilateral fingers toes. Musculoskeletal: cervical spine is non-tender. Circulation, motion, and sensation intact Signs and Symptoms of Compartment Syndrome: no signs of compartment syndrome. Injury Description: pt fell from standing. Historical: - Allergies: no known allergies; - Home Meds: 1. Abilify 2 mg Oral tab 2 mg daily (Last dose: 09/05/2016 08:00) 2. aspirin 81 mg Oral TbEC 1 tab once daily (Last dose: 09/05/2016 08:00) 3. atorvastatin 40 mg oral tab 1 tab once daily (Last dose: 09/05/2016 08:00) 4. B12 1000mcg 1 tab daily (Last dose: 09/05/2016 08:00) 5. bisoprolol fumarate 5 mg oral tab 0.5 tab once daily (Last dose: 09/05/2016 08:00) 6. bupropion HCl 150 mg Oral TbER 2 tab once daily (Last dose: 09/05/2016 08:00) 7. Drisdol 50,000 unit Oral cap 1 cap once wkly (Last dose: 09/05/2016 08:00) 8. indapamide 1.25 mg Oral tab 1 tab every two days (Last dose: 09/05/2016 08:00) 9. Lantus 100 unit/mL Sub-Q soln 12 unit nightly (Last dose: 09/04/2016 20:00) 10. levothyroxine 50 mcg Oral cap once daily (Last dose: 09/05/2016 08:00) 11. Lofibra 200 mg oral cap 1 cap once daily (Last dose: 09/05/2016 08:00) 12. Mapap (acetaminophen) 325 mg oral tab 2 tabs every 4 hours (Last dose: 09/05/2016 08:00) 13. Milk of Magnesia 400 mg/5 mL Oral susp 30 mL once daily (Last dose: 09/05/2016 08:00) 14. mirtazapine 7.5 mg Oral tab 1 tabs once daily (Last dose: 09/05/2016 08:00) 15. Novolin 70/30 Innolet 36 units Sub-Q 70-30 unit/mL (Last dose: 09/05/2016 12:00) 16. venlafaxine 75 mg oral tab 2 tab 2 times per day (Last dose: 09/05/2016 08:00) - PMHx: Anxiety; Atrial Fib; Diabetes; Hypercholesterolemia; Hypertension; Hypothyroidism; kidney disease; - PSHx: Colostomy Construction; - Social history: Smoking status: Patient states former smoker of tobacco. No barriers to communication noted, Speaks appropriately for age. - Family history: Not pertinent. - : The pt / caregiver states he / she is not on anticoagulants. Home medication list is obtained from the patient. - Exposure Risk Screening:: None identified. Screenin:47 Screening information is obtained from the patient. Fall risk: No risks identified. ml6 Assistance ADL's: requires no assistance with activities of daily living. Abuse/DV Screen: The patient / caregiver reports he/she is: not in a situation that causes fear, pain or injury. Nutritional screening: No deficits noted. Advance Directives: Currently, there is no health care proxy. home support is adequate. Assessment: 18:47 General: see triage assessment. 6 19:02 General: Verbal report given by Vikash Plata RN. Assumed care of patient at this time.. kas2 19:45 General: Appears in no apparent distress, comfortable, well nourished, well groomed, kas2 Behavior is appropriate for age, cooperative. Pain: Location: left arm and left ear and palmar aspect of left forearm Pain currently is 4 out of 10 on a pain scale. Neurological: Level of Consciousness is awake, alert, Oriented to person, place, time. Cardiovascular: Capillary refill < 3 seconds Heart tones S1 S2 present Rhythm is sinus rhythm No ectopy. Respiratory: Airway is patent Respiratory effort is even, unlabored, Respiratory pattern is regular, symmetrical, Breath sounds are clear bilaterally. Derm: Skin is intact, is healthy with good turgor, Skin is dry, Skin is pink, warm & dry. Skin temperature is warm. Injury Description: Laceration sustained to left ear. 20:23 General: Dr. Champagne in the room suturing up left ear at this time.. kas2 20:45 General: Patient sitting up in bed with no complaints of pain or discomfort at this kas2 time. Bleeding controlled to left ear. No apparent distress. Call khan within reach. Will continue to monitor at this time.. 21:02 General: Report called to Nursing filtration supervisor Luh NINO at [facility] assisted living.. kas2 Vital Signs: 18:41 BP 143 / 68; Pulse 72; Resp 16; Temp 97.3(O); Pulse Ox 97% on R/A; Weight 95.16 kg (R); ml6 Height 5 ft. 8 in. (172.72 cm) (R); Pain 2/10; 18:45 BP 129 / 62 (auto/); kas2 18:45 Pulse 71 MON; Pulse Ox 97% ; kas2 19:00 BP 183 / 84 (auto/); kas2 19:00 Pulse 81 MON; Pulse Ox 96% ; kas2 19:14 BP 139 / 68 (auto/); kas2 19:14 Pulse 73 MON; Pulse Ox 96% ; kas2 19:16 BP 142 / 72 (auto/); kas2 19:16 Pulse 72 MON; Pulse Ox 97% ; kas2 19:31 BP 136 / 64 (auto/); kas2 19:31 Pulse 71 MON; Pulse Ox 93% ; kas2 19:46 BP 133 / 75 (auto/); kas2 19:46 Pulse 72 MON; Pulse Ox 92% ; kas2 19:47 Resp 20; Temp 98.2(O); kas2 20:01 BP 142 / 63 (auto/); kas2 20:01 Pulse 69 MON; Pulse Ox 94% ; kas2 20:16 BP 156 / 88 (auto/); kas2 20:16 Pulse 70 MON; Pulse Ox 96% ; kas2 20:31 BP 153 / 80 (auto/); kas2 20:31 Pulse 70 MON; Pulse Ox 97% ; kas2 20:46 BP 151 / 85 (auto/); kas2 20:46 Pulse 71 MON; Pulse Ox 95% ; kas2 18:41 Body Mass Index 31.90 (95.16 kg, 172.72 cm) 6 Vitals: 18:41 Log In Time N/A - ambulance arrival. 6 ED Course: 18:33 Patient visited by Cari Ibrahim Football Scout. lbd 18:33 [place] is Private Physician. lbd 18:33 Patient moved to Waiting lbd 18:34 Ousmane Plata, RN is Primary Nurse. lbd 18:34 Patient moved to 3 lbd 18:41 Triage Initiated ml6 18:47 The patient / caregiver is instructed regarding the plan of care and ED course. ml6 18:53 Armani Champagne DO is Attending Physician. cs11 18:53 Patient visited by Armani Champagne DO. cs11 19:02 Zuri Owens,MICA is Primary Nurse. kas2 19:03 Patient visited by Zuri Owens,MICA. kas2 19:47 Patient visited by Zuri Owens RN. kas2 20:04 CT Head Without Contrast Returned. EDMS 20:04 CT Spine,Cervical W/o Contrast Returned. EDMS 20:04 Forearm (radius/ulna) Returned. EDMS 20:06 [facility] Payment Agreement was scanned into [employer] and attached to record. gjb 20:20 Patient visited by Zuri Owens RN. kas2 20:23 Patient visited by Zuri Owens RN. kas2 20:40 Osvaldo is Referral Physician. cs11 21:01 No IV's were initiated during this patient's visit. No procedures done that require kas2 assistance. 21:02 Patient visited by Zuri Owens RN. kas2 09/06 08:11 T-Sheet-- Draft Copy was scanned into [employer] and attached to record. 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 Exp: 10/04/2018. Lot #: [id number]. } Route: IM; Site: right deltoid; Order Results: Radiology Order: CT Head Without Contrast Test: CT Head Without Contrast REASON FOR EXAMINATION: Trauma; Clinical: Trauma.; ; Comparison: 05/18/2016.; ; Findings:; ; There is a very small hyperdense focus along the right post central gyrus (image; 23) while this may reflect chronic change, a very small contusion cannot be; excluded.; ; The ventricles and sulci are otherwise symmetric and demonstrate atrophic; changes. The vazquez-white differentiation is maintained without evidence for acute; infarction. No further intracranial hemorrhage mass or mass effect is; identified. No extra-axial fluid collection is appreciated. The calvarium is; intact the sinuses are clear.; ; ; Impression:; Very small hyperdense focus along the right post central gyrus may reflect; chronic change versus small acute contusion.; No further acute intracranial hemorrhage, infarction, or mass/mass effect.; Age related atrophy and microvascular ischemic changes.; ; ; Signed by; Elkin Cabello MD 09/05/2016 07:15 P; Radiology Order: CT Spine,Cervical W/o Contrast Test: CT Spine,Cervical W/o Contrast REASON FOR EXAMINATION: Trauma; Clinical: Trauma.; ; Technique: Axial noncontrast images from the skull base to the thoracic inlet; with coronal and sagittal re-formations.; ; Findings:; Straightening of normal lordosis is secondary to positioning versus pain/spasm.; Osteopenia and advanced multilevel degenerative changes includes anterior and; posterior osteophytosis along with posterior longitudinal ligament; calcifications, endplate sclerosis and disc space narrowing. 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 Partial; fusion at C7-T1. No obvious acute fracture / compression injury or subluxation.; Posterior elements and spinous processes demonstrate degenerative changes without; acute fracture. Paravertebral soft tissues are grossly normal.; ; Impression:; Osteopenia and multilevel degenerative changes as described above.; Straightening of normal lordosis likely chronic and related to positioning.; No acute fracture / compression injury or subluxation identified.; ; ; Signed by; Elkin Cabello MD 09/05/2016 07:19 P; Radiology Order: Forearm (radius/ulna) Test: Forearm (radius/ulna) REASON FOR EXAMINATION: Trauma; Clinical: Trauma.; ; Technique: AP and lateral views of the left forearm.; ; Findings:; Age-related osteopenia and degenerative changes at the wrist and elbow are; suggested. No obvious acute fracture or dislocation. No subcutaneous emphysema; or radiodense foreign body.; ; Impression:; Age-related changes. No acute fracture or dislocation identified.; ; ; Signed by; Elkin Cabello MD 09/05/2016 07:36 P; Outcome: 20:43 Discharge ordered by Provider. 11 21:01 Discharge Assessment: patient administered narcotics - no. The following High Risk [facility] Discharge criteria are identified: None. Discharged to [facility] assisted. Condition: good Condition: stable Condition: improved. CT Study completed. Property :Personal belongings accompany Pt. 21:[address] [facility] Addendum: 09/08/2016 10:56 Narrative: Spoke with Frances at [facility] (1st floor assisted) and she will have patient kcs return. Signatures: Dispatcher [employer] Beata Luevano, RN RN Cari Antunez, Football Scout Unit lbd Ousmane Plata RN RN [email or web address] Armani Champagne DO DO cs11 Mirta Holloway Kim, RN RN kas2 Park Beckwith [facility]
--- NOTE | 2016-09-08 10:58 | EDDOCDS ---
Nurse's Notes [facility] Name: Rohan Mantilla Age: 75 yrs Sex: Male : 1940 Arrival Date: 09/05/2016 Time: 18:32 Bed 3 Private MD: Osvaldo Diagnosis: Laceration without foreign body of left ear;Contusion of unspecified part of head Presentation: 09/05 18:40 Presenting complaint: Patient states: states that he attempted to get into his chair ml6 without his walker, patient states that he became dizzy and fell sideways striking his right ear on table. Adult Sepsis Screening: The patient does not have new or worsening altered mentation. Patient's respiratory rate is less than 22. Systolic blood pressure is greater than 100. Patient has a qSOFA score of 0- Negative Sepsis Screen. Suicide/Homicide risk assessment- the patient denies having any suicidal and/or homicidal ideations and does not present with any other emotional, behavioral or mental health complaints. Status: Patient is not a client services specialist or dependent. Transition of care: patient was not received from another setting of care. 18:40 Acuity: CIARA Level 3 ml6 18:40 Method Of Arrival: Walkin/Carried/Asstd ml6 Triage Assessment: 18:46 General: Appears in no apparent distress, Behavior is appropriate for age, cooperative. ml6 Pain: Location: left ear and palmar aspect of left forearm Pain currently is 3 out of 10 on a pain scale. Pain does not radiate. Quality of pain is described as aching, Pain began 30 min ago Is continuous. The patient is triaged at the bedside. See Assessment in Nurses Notes section of ED record. Neurological: No deficits noted. Level of Consciousness is awake, alert, Oriented to person, place, time, Converter Skimmer are equal bilaterally Moves all extremities. Full function Gait is steady, Speech is normal. Cardiovascular: No deficits noted. Capillary refill < 3 seconds is brisk in bilateral fingers toes. Musculoskeletal: cervical spine is non-tender. Circulation, motion, and sensation intact Signs and Symptoms of Compartment Syndrome: no signs of compartment syndrome. Injury Description: pt fell from standing. Historical: - Allergies: no known allergies; - Home Meds: 1. Abilify 2 mg Oral tab 2 mg daily (Last dose: 09/05/2016 08:00) 2. aspirin 81 mg Oral TbEC 1 tab once daily (Last dose: 09/05/2016 08:00) 3. atorvastatin 40 mg oral tab 1 tab once daily (Last dose: 09/05/2016 08:00) 4. B12 1000mcg 1 tab daily (Last dose: 09/05/2016 08:00) 5. bisoprolol fumarate 5 mg oral tab 0.5 tab once daily (Last dose: 09/05/2016 08:00) 6. bupropion HCl 150 mg Oral TbER 2 tab once daily (Last dose: 09/05/2016 08:00) 7. Drisdol 50,000 unit Oral cap 1 cap once wkly (Last dose: 09/05/2016 08:00) 8. indapamide 1.25 mg Oral tab 1 tab every two days (Last dose: 09/05/2016 08:00) 9. Lantus 100 unit/mL Sub-Q soln 12 unit nightly (Last dose: 09/04/2016 20:00) 10. levothyroxine 50 mcg Oral cap once daily (Last dose: 09/05/2016 08:00) 11. Lofibra 200 mg oral cap 1 cap once daily (Last dose: 09/05/2016 08:00) 12. Mapap (acetaminophen) 325 mg oral tab 2 tabs every 4 hours (Last dose: 09/05/2016 08:00) 13. Milk of Magnesia 400 mg/5 mL Oral susp 30 mL once daily (Last dose: 09/05/2016 08:00) 14. mirtazapine 7.5 mg Oral tab 1 tabs once daily (Last dose: 09/05/2016 08:00) 15. Novolin 70/30 Innolet 36 units Sub-Q 70-30 unit/mL (Last dose: 09/05/2016 12:00) 16. venlafaxine 75 mg oral tab 2 tab 2 times per day (Last dose: 09/05/2016 08:00) - PMHx: Anxiety; Atrial Fib; Diabetes; Hypercholesterolemia; Hypertension; Hypothyroidism; kidney disease; - PSHx: Colostomy Construction; - Social history: Smoking status: Patient states former smoker of tobacco. No barriers to communication noted, Speaks appropriately for age. - Family history: Not pertinent. - : The pt / caregiver states he / she is not on anticoagulants. Home medication list is obtained from the patient. - Exposure Risk Screening:: None identified. Screenin:47 Screening information is obtained from the patient. Fall risk: No risks identified. ml6 Assistance ADL's: requires no assistance with activities of daily living. Abuse/DV Screen: The patient / caregiver reports he/she is: not in a situation that causes fear, pain or injury. Nutritional screening: No deficits noted. Advance Directives: Currently, there is no health care proxy. home support is adequate. Assessment: 18:47 General: see triage assessment. 6 19:02 General: Verbal report given by Vikash Plata RN. Assumed care of patient at this time.. kas2 19:45 General: Appears in no apparent distress, comfortable, well nourished, well groomed, kas2 Behavior is appropriate for age, cooperative. Pain: Location: left arm and left ear and palmar aspect of left forearm Pain currently is 4 out of 10 on a pain scale. Neurological: Level of Consciousness is awake, alert, Oriented to person, place, time. Cardiovascular: Capillary refill < 3 seconds Heart tones S1 S2 present Rhythm is sinus rhythm No ectopy. Respiratory: Airway is patent Respiratory effort is even, unlabored, Respiratory pattern is regular, symmetrical, Breath sounds are clear bilaterally. Derm: Skin is intact, is healthy with good turgor, Skin is dry, Skin is pink, warm & dry. Skin temperature is warm. Injury Description: Laceration sustained to left ear. 20:23 General: Dr. Champagne in the room suturing up left ear at this time.. kas2 20:45 General: Patient sitting up in bed with no complaints of pain or discomfort at this kas2 time. Bleeding controlled to left ear. No apparent distress. Call khan within reach. Will continue to monitor at this time.. 21:02 General: Report called to Nursing tube drawing supervisor Luh NINO at [facility] assisted living.. kas2 Vital Signs: 18:41 BP 143 / 68; Pulse 72; Resp 16; Temp 97.3(O); Pulse Ox 97% on R/A; Weight 95.16 kg (R); ml6 Height 5 ft. 8 in. (172.72 cm) (R); Pain 2/10; 18:45 BP 129 / 62 (auto/); kas2 18:45 Pulse 71 MON; Pulse Ox 97% ; kas2 19:00 BP 183 / 84 (auto/); kas2 19:00 Pulse 81 MON; Pulse Ox 96% ; kas2 19:14 BP 139 / 68 (auto/); kas2 19:14 Pulse 73 MON; Pulse Ox 96% ; kas2 19:16 BP 142 / 72 (auto/); kas2 19:16 Pulse 72 MON; Pulse Ox 97% ; kas2 19:31 BP 136 / 64 (auto/); kas2 19:31 Pulse 71 MON; Pulse Ox 93% ; kas2 19:46 BP 133 / 75 (auto/); kas2 19:46 Pulse 72 MON; Pulse Ox 92% ; kas2 19:47 Resp 20; Temp 98.2(O); kas2 20:01 BP 142 / 63 (auto/); kas2 20:01 Pulse 69 MON; Pulse Ox 94% ; kas2 20:16 BP 156 / 88 (auto/); kas2 20:16 Pulse 70 MON; Pulse Ox 96% ; kas2 20:31 BP 153 / 80 (auto/); kas2 20:31 Pulse 70 MON; Pulse Ox 97% ; kas2 20:46 BP 151 / 85 (auto/); kas2 20:46 Pulse 71 MON; Pulse Ox 95% ; kas2 18:41 Body Mass Index 31.90 (95.16 kg, 172.72 cm) 6 Vitals: 18:41 Log In Time N/A - ambulance arrival. 6 ED Course: 18:33 Patient visited by Cari Ibrahim Vice President Global Digital Marketing. lbd 18:33 [place] is Private Physician. lbd 18:33 Patient moved to Waiting lbd 18:34 Ousmane Plata, RN is Primary Nurse. lbd 18:34 Patient moved to 3 lbd 18:41 Triage Initiated ml6 18:47 The patient / caregiver is instructed regarding the plan of care and ED course. ml6 18:53 Armani Champagne DO is Attending Physician. cs11 18:53 Patient visited by Armani Champagne DO. cs11 19:02 Zuri Owens,MICA is Primary Nurse. kas2 19:03 Patient visited by Zuri Owens,MICA. kas2 19:47 Patient visited by Zuri Owens RN. kas2 20:04 CT Head Without Contrast Returned. EDMS 20:04 CT Spine,Cervical W/o Contrast Returned. EDMS 20:04 Forearm (radius/ulna) Returned. EDMS 20:06 [facility] Payment Agreement was scanned into [employer] and attached to record. gjb 20:20 Patient visited by Zuri Owens RN. kas2 20:23 Patient visited by Zuri Owens RN. kas2 20:40 Osvaldo is Referral Physician. cs11 21:01 No IV's were initiated during this patient's visit. No procedures done that require kas2 assistance. 21:02 Patient visited by Zuri Owens RN. kas2 09/06 08:11 T-Sheet-- Draft Copy was scanned into [employer] and attached to record. [facility] Administered Medications: 09/05 19:16 Drug: Tetanus- Diptheria-Acellular Pertussis 0.5 ml [diphth,pertussis(acel),tetanus 2.5 kas2 Lf unit-8 mcg-5 Lf/0.5mL IM syringe (0.5 mL)] {Traffic Control Signaler: [employer]. Exp: 10/04/2018. Lot #: [id number]. } Route: IM; Site: right deltoid; Order Results: Radiology Order: CT Head Without Contrast Test: CT Head Without Contrast REASON FOR EXAMINATION: Trauma; Clinical: Trauma.; ; Comparison: 05/18/2016.; ; Findings:; ; There is a very small hyperdense focus along the right post central gyrus (image; 23) while this may reflect chronic change, a very small contusion cannot be; excluded.; ; The ventricles and sulci are otherwise symmetric and demonstrate atrophic; changes. The vazquez-white differentiation is maintained without evidence for acute; infarction. No further intracranial hemorrhage mass or mass effect is; identified. No extra-axial fluid collection is appreciated. The calvarium is; intact the sinuses are clear.; ; ; Impression:; Very small hyperdense focus along the right post central gyrus may reflect; chronic change versus small acute contusion.; No further acute intracranial hemorrhage, infarction, or mass/mass effect.; Age related atrophy and microvascular ischemic changes.; ; ; Signed by; Elkin Cabello MD 09/05/2016 07:15 P; Radiology Order: CT Spine,Cervical W/o Contrast Test: CT Spine,Cervical W/o Contrast REASON FOR EXAMINATION: Trauma; Clinical: Trauma.; ; Technique: Axial noncontrast images from the skull base to the thoracic inlet; with coronal and sagittal re-formations.; ; Findings:; Straightening of normal lordosis is secondary to positioning versus pain/spasm.; Osteopenia and advanced multilevel degenerative changes includes anterior and; posterior osteophytosis along with posterior longitudinal ligament; calcifications, endplate sclerosis and disc space narrowing. 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 Partial; fusion at C7-T1. No obvious acute fracture / compression injury or subluxation.; Posterior elements and spinous processes demonstrate degenerative changes without; acute fracture. Paravertebral soft tissues are grossly normal.; ; Impression:; Osteopenia and multilevel degenerative changes as described above.; Straightening of normal lordosis likely chronic and related to positioning.; No acute fracture / compression injury or subluxation identified.; ; ; Signed by; Elkin Cabello MD 09/05/2016 07:19 P; Radiology Order: Forearm (radius/ulna) Test: Forearm (radius/ulna) REASON FOR EXAMINATION: Trauma; Clinical: Trauma.; ; Technique: AP and lateral views of the left forearm.; ; Findings:; Age-related osteopenia and degenerative changes at the wrist and elbow are; suggested. No obvious acute fracture or dislocation. No subcutaneous emphysema; or radiodense foreign body.; ; Impression:; Age-related changes. No acute fracture or dislocation identified.; ; ; Signed by; Elkin Cabello MD 09/05/2016 07:36 P; Outcome: 20:43 Discharge ordered by Provider. 11 21:01 Discharge Assessment: patient administered narcotics - no. The following High Risk [facility] Discharge criteria are identified: None. Discharged to Extended [facility] Facility [facility] assisted. Condition: good Condition: stable Condition: improved. CT Study completed. Property :Personal belongings accompany Pt. 21:02 Patient left the ED. [facility] Addendum: 09/08/2016 10:56 Narrative: Spoke with Frances at [facility] (1st floor assisted) and she will have patient kcs return. Signatures: Dispatcher [employer] Beata Luevano, RN RN Cari Antunez, Vice President Global Digital Marketing Unit lbd Ousmane Plata RN RN [email or web address] Armani Champagne DO DO cs11 Mirta Holloway Kim, RN RN kas2 Park Beckwith Chart Complete MTDD
--- NOTE | 2016-09-08 10:58 | EDDOCDS ---
Physician Documentation [facility] Name: Rohan Mantilla Age: 75 yrs Sex: Male : 1940 Arrival Date: 09/05/2016 Time: 18:32 Bed 3 Private MD: Osvaldo Disposition: 09/05/16 20:43 Discharged to Home/Self Care. Impression: Laceration without foreign body of left ear, Contusion of unspecified part of head. - Condition is Stable. - Medication Reconciliation, Local Pharmacy Hours form. - Follow up: Osvaldo; When: 1 week; Reason: Staple/Suture removal. - Problem is new. - Symptoms have improved. Historical: - Allergies: no known allergies; - Home Meds: 1. Abilify 2 mg Oral tab 2 mg daily (Last dose: 09/05/2016 08:00) 2. aspirin 81 mg Oral TbEC 1 tab once daily (Last dose: 09/05/2016 08:00) 3. atorvastatin 40 mg oral tab 1 tab once daily (Last dose: 09/05/2016 08:00) 4. B12 1000mcg 1 tab daily (Last dose: 09/05/2016 08:00) 5. bisoprolol fumarate 5 mg oral tab 0.5 tab once daily (Last dose: 09/05/2016 08:00) 6. bupropion HCl 150 mg Oral TbER 2 tab once daily (Last dose: 09/05/2016 08:00) 7. Drisdol 50,000 unit Oral cap 1 cap once wkly (Last dose: 09/05/2016 08:00) 8. indapamide 1.25 mg Oral tab 1 tab every two days (Last dose: 09/05/2016 08:00) 9. Lantus 100 unit/mL Sub-Q soln 12 unit nightly (Last dose: 09/04/2016 20:00) 10. levothyroxine 50 mcg Oral cap once daily (Last dose: 09/05/2016 08:00) 11. Lofibra 200 mg oral cap 1 cap once daily (Last dose: 09/05/2016 08:00) 12. Mapap (acetaminophen) 325 mg oral tab 2 tabs every 4 hours (Last dose: 09/05/2016 08:00) 13. Milk of Magnesia 400 mg/5 mL Oral susp 30 mL once daily (Last dose: 09/05/2016 08:00) 14. mirtazapine 7.5 mg Oral tab 1 tabs once daily (Last dose: 09/05/2016 08:00) 15. Novolin 70/30 Innolet 36 units Sub-Q 70-30 unit/mL (Last dose: 09/05/2016 12:00) 16. venlafaxine 75 mg oral tab 2 tab 2 times per day (Last dose: 09/05/2016 08:00) - PMHx: Anxiety; Atrial Fib; Diabetes; Hypercholesterolemia; Hypertension; Hypothyroidism; kidney disease; - PSHx: Colostomy Construction; - Social history: Smoking status: Patient states former smoker of tobacco. No barriers to communication noted, Speaks appropriately for age. - Family history: Not pertinent. - : The pt / caregiver states he / she is not on anticoagulants. Home medication list is obtained from the patient. - Exposure Risk Screening:: None identified. Vital Signs: 09/05 18:41 BP 143 / 68; Pulse 72; Resp 16; Temp 97.3(O); Pulse Ox 97% on R/A; Weight 95.16 kg / ml6 209.79 lbs (R); Height 5 ft. 8 in. (172.72 cm) (R); Pain 2/10; 18:45 BP 129 / 62 (auto/); kas2 18:45 Pulse 71 MON; Pulse Ox 97% ; kas2 19:00 BP 183 / 84 (auto/); kas2 19:00 Pulse 81 MON; Pulse Ox 96% ; kas2 19:14 BP 139 / 68 (auto/); kas2 19:14 Pulse 73 MON; Pulse Ox 96% ; kas2 19:16 BP 142 / 72 (auto/); kas2 19:16 Pulse 72 MON; Pulse Ox 97% ; kas2 19:31 BP 136 / 64 (auto/); kas2 19:31 Pulse 71 MON; Pulse Ox 93% ; kas2 19:46 BP 133 / 75 (auto/); kas2 19:46 Pulse 72 MON; Pulse Ox 92% ; kas2 19:47 Resp 20; Temp 98.2(O); kas2 20:01 BP 142 / 63 (auto/); kas2 20:01 Pulse 69 MON; Pulse Ox 94% ; kas2 20:16 BP 156 / 88 (auto/); kas2 20:16 Pulse 70 MON; Pulse Ox 96% ; kas2 20:31 BP 153 / 80 (auto/); kas2 20:31 Pulse 70 MON; Pulse Ox 97% ; kas2 20:46 BP 151 / 85 (auto/); kas2 20:46 Pulse 71 MON; Pulse Ox 95% ; kas2 18:41 Body Mass Index 31.90 (95.16 kg, 172.72 cm) ml6 Procedures: 20:36 Laceration repair:. cs11 Laceration: 20:36 Wound Repair of 1.5cm ( 0.6in ) full thickness laceration to left ear. Distal cs11 neuro/vascular/tendon intact. Anesthesia: Local anesthetic administered with 2.0 mls of 1% lidocaine. Wound prep: Moderate cleansing with hibiclenz by provider. Skin closed with 5 x 3-0 Ethilon using Simple interrupted sutures. Patient tolerated well. MDM: 18:53 CT Head Without Contrast Ordered. EDMS 18:53 CT Spine,Cervical W/o Contrast Ordered. EDMS 18:55 Tetanus- Diptheria-Acellular Pertussis 0.5 ml IM once; Routine booster 10-64yrs, >64 cs11 with child contact [place] [employer] ordered. 18:57 Forearm (radius/ulna) Ordered. EDMS 19:55 Financial registration complete. [facility] 20:06 [facility] Payment Agreement was scanned into [employer]ify and attached to record. [facility] 09/06 08:11 T-Sheet-- Draft Copy was scanned into archify and attached to record. [facility] Administered Medications: 09/05 19:16 Drug: Tetanus- Diptheria-Acellular Pertussis 0.5 ml [diphth,pertussis(acel),tetanus 2.5 kas2 Lf unit-8 mcg-5 Lf/0.5mL IM syringe (0.5 mL)] {Simulation Engineer: [employer]. Exp: 10/04/2018. Lot #: [id number]. } Route: IM; Site: right deltoid; Addendum: 09/08/2016 10:29 Addendum: radiology review of CT head demonstrating chronic change vs. small acute sd1 contusion. given setting of trauma d/w charge nurse to have patient return for re-evaluation this am. Signatures: Dispatcher [employer] EDMS Patton-Workman, Park, MD MD sd1 Oumsane Plata, RN RN ml6 Armani Champagne DO DO cs11 Mirta Holloway Kim, RN RN kas2 Park Beckwith The chart was reviewed and I authenticate all verbal orders and agree with the evaluation and treatment provided.Attachments: 09/05 20:06 [facility] Payment Agreement gjb 09/06 08:11 T-Sheet-- Draft Copy [facility] Chart Complete MTDD
--- NOTE | 2016-09-08 10:58 | EDDOCDS ---
Physician Documentation [facility] Name: Rohan Mantilla Age: 75 yrs Sex: Male : 1940 Arrival Date: 09/05/2016 Time: 18:32 Bed 3 Private MD: Osvaldo Disposition: 09/05/16 20:43 Discharged to Home/Self Care. Impression: Laceration without foreign body of left ear, Contusion of unspecified part of head. - Condition is Stable. - Medication Reconciliation, Local Pharmacy Hours form. - Follow up: Osvaldo; When: 1 week; Reason: Staple/Suture removal. - Problem is new. - Symptoms have improved. Historical: - Allergies: no known allergies; - Home Meds: 1. Abilify 2 mg Oral tab 2 mg daily (Last dose: 09/05/2016 08:00) 2. aspirin 81 mg Oral TbEC 1 tab once daily (Last dose: 09/05/2016 08:00) 3. atorvastatin 40 mg oral tab 1 tab once daily (Last dose: 09/05/2016 08:00) 4. B12 1000mcg 1 tab daily (Last dose: 09/05/2016 08:00) 5. bisoprolol fumarate 5 mg oral tab 0.5 tab once daily (Last dose: 09/05/2016 08:00) 6. bupropion HCl 150 mg Oral TbER 2 tab once daily (Last dose: 09/05/2016 08:00) 7. Drisdol 50,000 unit Oral cap 1 cap once wkly (Last dose: 09/05/2016 08:00) 8. indapamide 1.25 mg Oral tab 1 tab every two days (Last dose: 09/05/2016 08:00) 9. Lantus 100 unit/mL Sub-Q soln 12 unit nightly (Last dose: 09/04/2016 20:00) 10. levothyroxine 50 mcg Oral cap once daily (Last dose: 09/05/2016 08:00) 11. Lofibra 200 mg oral cap 1 cap once daily (Last dose: 09/05/2016 08:00) 12. Mapap (acetaminophen) 325 mg oral tab 2 tabs every 4 hours (Last dose: 09/05/2016 08:00) 13. Milk of Magnesia 400 mg/5 mL Oral susp 30 mL once daily (Last dose: 09/05/2016 08:00) 14. mirtazapine 7.5 mg Oral tab 1 tabs once daily (Last dose: 09/05/2016 08:00) 15. Novolin 70/30 Innolet 36 units Sub-Q 70-30 unit/mL (Last dose: 09/05/2016 12:00) 16. venlafaxine 75 mg oral tab 2 tab 2 times per day (Last dose: 09/05/2016 08:00) - PMHx: Anxiety; Atrial Fib; Diabetes; Hypercholesterolemia; Hypertension; Hypothyroidism; kidney disease; - PSHx: Colostomy Construction; - Social history: Smoking status: Patient states former smoker of tobacco. No barriers to communication noted, Speaks appropriately for age. - Family history: Not pertinent. - : The pt / caregiver states he / she is not on anticoagulants. Home medication list is obtained from the patient. - Exposure Risk Screening:: None identified. Vital Signs: 09/05 18:41 BP 143 / 68; Pulse 72; Resp 16; Temp 97.3(O); Pulse Ox 97% on R/A; Weight 95.16 kg / ml6 209.79 lbs (R); Height 5 ft. 8 in. (172.72 cm) (R); Pain 2/10; 18:45 BP 129 / 62 (auto/); kas2 18:45 Pulse 71 MON; Pulse Ox 97% ; kas2 19:00 BP 183 / 84 (auto/); kas2 19:00 Pulse 81 MON; Pulse Ox 96% ; kas2 19:14 BP 139 / 68 (auto/); kas2 19:14 Pulse 73 MON; Pulse Ox 96% ; kas2 19:16 BP 142 / 72 (auto/); kas2 19:16 Pulse 72 MON; Pulse Ox 97% ; kas2 19:31 BP 136 / 64 (auto/); kas2 19:31 Pulse 71 MON; Pulse Ox 93% ; kas2 19:46 BP 133 / 75 (auto/); kas2 19:46 Pulse 72 MON; Pulse Ox 92% ; kas2 19:47 Resp 20; Temp 98.2(O); kas2 20:01 BP 142 / 63 (auto/); kas2 20:01 Pulse 69 MON; Pulse Ox 94% ; kas2 20:16 BP 156 / 88 (auto/); kas2 20:16 Pulse 70 MON; Pulse Ox 96% ; kas2 20:31 BP 153 / 80 (auto/); kas2 20:31 Pulse 70 MON; Pulse Ox 97% ; kas2 20:46 BP 151 / 85 (auto/); kas2 20:46 Pulse 71 MON; Pulse Ox 95% ; kas2 18:41 Body Mass Index 31.90 (95.16 kg, 172.72 cm) ml6 Procedures: 20:36 Laceration repair:. cs11 Laceration: 20:36 Wound Repair of 1.5cm ( 0.6in ) full thickness laceration to left ear. Distal cs11 neuro/vascular/tendon intact. Anesthesia: Local anesthetic administered with 2.0 mls of 1% lidocaine. Wound prep: Moderate cleansing with hibiclenz by provider. Skin closed with 5 x 3-0 Ethilon using Simple interrupted sutures. Patient tolerated well. MDM: 18:53 CT Head Without Contrast Ordered. EDMS 18:53 CT Spine,Cervical W/o Contrast Ordered. EDMS 18:55 Tetanus- Diptheria-Acellular Pertussis 0.5 ml IM once; Routine booster 10-64yrs, >64 cs11 with child contact [place] [employer] ordered. 18:57 Forearm (radius/ulna) Ordered. EDMS 19:55 Financial registration complete. [facility] 20:06 [facility] Payment Agreement was scanned into [employer] and attached to record. [facility] 09/06 08:11 T-Sheet-- Draft Copy was scanned into [employer] and attached to record. [facility] Administered Medications: 09/05 19:16 Drug: Tetanus- Diptheria-Acellular Pertussis 0.5 ml [diphth,pertussis(acel),tetanus 2.5 kas2 Lf unit-8 mcg-5 Lf/0.5mL IM syringe (0.5 mL)] {Group Leader Wafer Polishing: [employer]. Exp: 10/04/2018. Lot #: [id number]. } Route: IM; Site: right deltoid; Addendum: 09/08/2016 10:29 Addendum: radiology review of CT head demonstrating chronic change vs. small acute sd1 contusion. given setting of trauma d/w charge nurse to have patient return for re-evaluation this am. Signatures: Dispatcher [employer] EDMS Patton-Workman, Park, MD MD sd1 Ousmane Plata, RN RN ml6 Armani Champagne DO DO cs11 Mirta Holloway Kim, RN RN kas2 Park Beckwith The chart was reviewed and I authenticate all verbal orders and agree with the evaluation and treatment provided.Attachments: 09/05 20:06 [facility] Payment Agreement gjb 09/06 08:11 T-Sheet-- Draft Copy [facility] Chart Complete MTDD
--- NOTE | 2016-09-08 11:00 | EDDOCDS ---
Physician Documentation [facility] Name: Rohan Mantilla Age: 75 yrs Sex: Male : 1940 Arrival Date: 09/05/2016 Time: 18:32 Bed 3 Private MD: Osvaldo Disposition: 09/05/16 20:43 Discharged to Home/Self Care. Impression: Laceration without foreign body of left ear, Contusion of unspecified part of head. - Condition is Stable. - Medication Reconciliation, Local Pharmacy Hours form. - Follow up: Osvaldo; When: 1 week; Reason: Staple/Suture removal. - Problem is new. - Symptoms have improved. Historical: - Allergies: no known allergies; - Home Meds: 1. Abilify 2 mg Oral tab 2 mg daily (Last dose: 09/05/2016 08:00) 2. aspirin 81 mg Oral TbEC 1 tab once daily (Last dose: 09/05/2016 08:00) 3. atorvastatin 40 mg oral tab 1 tab once daily (Last dose: 09/05/2016 08:00) 4. B12 1000mcg 1 tab daily (Last dose: 09/05/2016 08:00) 5. bisoprolol fumarate 5 mg oral tab 0.5 tab once daily (Last dose: 09/05/2016 08:00) 6. bupropion HCl 150 mg Oral TbER 2 tab once daily (Last dose: 09/05/2016 08:00) 7. Drisdol 50,000 unit Oral cap 1 cap once wkly (Last dose: 09/05/2016 08:00) 8. indapamide 1.25 mg Oral tab 1 tab every two days (Last dose: 09/05/2016 08:00) 9. Lantus 100 unit/mL Sub-Q soln 12 unit nightly (Last dose: 09/04/2016 20:00) 10. levothyroxine 50 mcg Oral cap once daily (Last dose: 09/05/2016 08:00) 11. Lofibra 200 mg oral cap 1 cap once daily (Last dose: 09/05/2016 08:00) 12. Mapap (acetaminophen) 325 mg oral tab 2 tabs every 4 hours (Last dose: 09/05/2016 08:00) 13. Milk of Magnesia 400 mg/5 mL Oral susp 30 mL once daily (Last dose: 09/05/2016 08:00) 14. mirtazapine 7.5 mg Oral tab 1 tabs once daily (Last dose: 09/05/2016 08:00) 15. Novolin 70/30 Innolet 36 units Sub-Q 70-30 unit/mL (Last dose: 09/05/2016 12:00) 16. venlafaxine 75 mg oral tab 2 tab 2 times per day (Last dose: 09/05/2016 08:00) - PMHx: Anxiety; Atrial Fib; Diabetes; Hypercholesterolemia; Hypertension; Hypothyroidism; kidney disease; - PSHx: Colostomy Construction; - Social history: Smoking status: Patient states former smoker of tobacco. No barriers to communication noted, Speaks appropriately for age. - Family history: Not pertinent. - : The pt / caregiver states he / she is not on anticoagulants. Home medication list is obtained from the patient. - Exposure Risk Screening:: None identified. Vital Signs: 09/05 18:41 BP 143 / 68; Pulse 72; Resp 16; Temp 97.3(O); Pulse Ox 97% on R/A; Weight 95.16 kg / ml6 209.79 lbs (R); Height 5 ft. 8 in. (172.72 cm) (R); Pain 2/10; 18:45 BP 129 / 62 (auto/); kas2 18:45 Pulse 71 MON; Pulse Ox 97% ; kas2 19:00 BP 183 / 84 (auto/); kas2 19:00 Pulse 81 MON; Pulse Ox 96% ; kas2 19:14 BP 139 / 68 (auto/); kas2 19:14 Pulse 73 MON; Pulse Ox 96% ; kas2 19:16 BP 142 / 72 (auto/); kas2 19:16 Pulse 72 MON; Pulse Ox 97% ; kas2 19:31 BP 136 / 64 (auto/); kas2 19:31 Pulse 71 MON; Pulse Ox 93% ; kas2 19:46 BP 133 / 75 (auto/); kas2 19:46 Pulse 72 MON; Pulse Ox 92% ; kas2 19:47 Resp 20; Temp 98.2(O); kas2 20:01 BP 142 / 63 (auto/); kas2 20:01 Pulse 69 MON; Pulse Ox 94% ; kas2 20:16 BP 156 / 88 (auto/); kas2 20:16 Pulse 70 MON; Pulse Ox 96% ; kas2 20:31 BP 153 / 80 (auto/); kas2 20:31 Pulse 70 MON; Pulse Ox 97% ; kas2 20:46 BP 151 / 85 (auto/); kas2 20:46 Pulse 71 MON; Pulse Ox 95% ; kas2 18:41 Body Mass Index 31.90 (95.16 kg, 172.72 cm) ml6 Procedures: 20:36 Laceration repair:. cs11 Laceration: 20:36 Wound Repair of 1.5cm ( 0.6in ) full thickness laceration to left ear. Distal cs11 neuro/vascular/tendon intact. Anesthesia: Local anesthetic administered with 2.0 mls of 1% lidocaine. Wound prep: Moderate cleansing with hibiclenz by provider. Skin closed with 5 x 3-0 Ethilon using Simple interrupted sutures. Patient tolerated well. MDM: 18:53 CT Head Without Contrast Ordered. EDMS 18:53 CT Spine,Cervical W/o Contrast Ordered. EDMS 18:55 Tetanus- Diptheria-Acellular Pertussis 0.5 ml IM once; Routine booster 10-64yrs, >64 cs11 with child contact Bethany Omnicell ordered. 18:57 Forearm (radius/ulna) Ordered. EDMS 19:55 Financial registration complete. [facility] 20:06 [facility] Payment Agreement was scanned into [employer] and attached to record. [facility] 09/06 08:11 T-Sheet-- Draft Copy was scanned into [employer] and attached to record. [facility] Administered Medications: 09/05 19:16 Drug: Tetanus- Diptheria-Acellular Pertussis 0.5 ml [diphth,pertussis(acel),tetanus 2.5 kas2 Lf unit-8 mcg-5 Lf/0.5mL IM syringe (0.5 mL)] {Chicken Dresser: [employer]. Exp: 10/04/2018. Lot #: [id number]. } Route: IM; Site: right deltoid; Addendum: 09/08/2016 10:29 Addendum: radiology review of CT head demonstrating chronic change vs. small acute sd1 contusion. given setting of trauma d/w charge nurse to have patient return for re-evaluation this am. Signatures: Dispatcher [employer] EDMS Patton-Workman, Park, MD MD sd1 Ousmane Plata, RN RN ml6 Armani Champagne DO DO cs11 Mirta Holloway Kim, RN RN kas2 Park Beckwith The chart was reviewed and I authenticate all verbal orders and agree with the evaluation and treatment provided.Attachments: 09/05 20:06 [facility] Payment Agreement gjb 09/06 08:11 T-Sheet-- Draft Copy [facility] MTDD
--- NOTE | 2016-09-08 11:00 | EDDOCDS ---
Physician Documentation [facility] Name: Rohna Mantilla Age: 75 yrs Sex: Male : 1940 Arrival Date: 09/05/2016 Time: 18:32 Bed 3 Private MD: Osvaldo Disposition: 09/05/16 20:43 Discharged to Home/Self Care. Impression: Laceration without foreign body of left ear, Contusion of unspecified part of head. - Condition is Stable. - Medication Reconciliation, Local Pharmacy Hours form. - Follow up: Osvaldo; When: 1 week; Reason: Staple/Suture removal. - Problem is new. - Symptoms have improved. Historical: - Allergies: no known allergies; - Home Meds: 1. Abilify 2 mg Oral tab 2 mg daily (Last dose: 09/05/2016 08:00) 2. aspirin 81 mg Oral TbEC 1 tab once daily (Last dose: 09/05/2016 08:00) 3. atorvastatin 40 mg oral tab 1 tab once daily (Last dose: 09/05/2016 08:00) 4. B12 1000mcg 1 tab daily (Last dose: 09/05/2016 08:00) 5. bisoprolol fumarate 5 mg oral tab 0.5 tab once daily (Last dose: 09/05/2016 08:00) 6. bupropion HCl 150 mg Oral TbER 2 tab once daily (Last dose: 09/05/2016 08:00) 7. Drisdol 50,000 unit Oral cap 1 cap once wkly (Last dose: 09/05/2016 08:00) 8. indapamide 1.25 mg Oral tab 1 tab every two days (Last dose: 09/05/2016 08:00) 9. Lantus 100 unit/mL Sub-Q soln 12 unit nightly (Last dose: 09/04/2016 20:00) 10. levothyroxine 50 mcg Oral cap once daily (Last dose: 09/05/2016 08:00) 11. Lofibra 200 mg oral cap 1 cap once daily (Last dose: 09/05/2016 08:00) 12. Mapap (acetaminophen) 325 mg oral tab 2 tabs every 4 hours (Last dose: 09/05/2016 08:00) 13. Milk of Magnesia 400 mg/5 mL Oral susp 30 mL once daily (Last dose: 09/05/2016 08:00) 14. mirtazapine 7.5 mg Oral tab 1 tabs once daily (Last dose: 09/05/2016 08:00) 15. Novolin 70/30 Innolet 36 units Sub-Q 70-30 unit/mL (Last dose: 09/05/2016 12:00) 16. venlafaxine 75 mg oral tab 2 tab 2 times per day (Last dose: 09/05/2016 08:00) - PMHx: Anxiety; Atrial Fib; Diabetes; Hypercholesterolemia; Hypertension; Hypothyroidism; kidney disease; - PSHx: Colostomy Construction; - Social history: Smoking status: Patient states former smoker of tobacco. No barriers to communication noted, Speaks appropriately for age. - Family history: Not pertinent. - : The pt / caregiver states he / she is not on anticoagulants. Home medication list is obtained from the patient. - Exposure Risk Screening:: None identified. Vital Signs: 09/05 18:41 BP 143 / 68; Pulse 72; Resp 16; Temp 97.3(O); Pulse Ox 97% on R/A; Weight 95.16 kg / ml6 209.79 lbs (R); Height 5 ft. 8 in. (172.72 cm) (R); Pain 2/10; 18:45 BP 129 / 62 (auto/); kas2 18:45 Pulse 71 MON; Pulse Ox 97% ; kas2 19:00 BP 183 / 84 (auto/); kas2 19:00 Pulse 81 MON; Pulse Ox 96% ; kas2 19:14 BP 139 / 68 (auto/); kas2 19:14 Pulse 73 MON; Pulse Ox 96% ; kas2 19:16 BP 142 / 72 (auto/); kas2 19:16 Pulse 72 MON; Pulse Ox 97% ; kas2 19:31 BP 136 / 64 (auto/); kas2 19:31 Pulse 71 MON; Pulse Ox 93% ; kas2 19:46 BP 133 / 75 (auto/); kas2 19:46 Pulse 72 MON; Pulse Ox 92% ; kas2 19:47 Resp 20; Temp 98.2(O); kas2 20:01 BP 142 / 63 (auto/); kas2 20:01 Pulse 69 MON; Pulse Ox 94% ; kas2 20:16 BP 156 / 88 (auto/); kas2 20:16 Pulse 70 MON; Pulse Ox 96% ; kas2 20:31 BP 153 / 80 (auto/); kas2 20:31 Pulse 70 MON; Pulse Ox 97% ; kas2 20:46 BP 151 / 85 (auto/); kas2 20:46 Pulse 71 MON; Pulse Ox 95% ; kas2 18:41 Body Mass Index 31.90 (95.16 kg, 172.72 cm) ml6 Procedures: 20:36 Laceration repair:. cs11 Laceration: 20:36 Wound Repair of 1.5cm ( 0.6in ) full thickness laceration to left ear. Distal cs11 neuro/vascular/tendon intact. Anesthesia: Local anesthetic administered with 2.0 mls of 1% lidocaine. Wound prep: Moderate cleansing with hibiclenz by provider. Skin closed with 5 x 3-0 Ethilon using Simple interrupted sutures. Patient tolerated well. MDM: 18:53 CT Head Without Contrast Ordered. EDMS 18:53 CT Spine,Cervical W/o Contrast Ordered. EDMS 18:55 Tetanus- Diptheria-Acellular Pertussis 0.5 ml IM once; Routine booster 10-64yrs, >64 cs11 with child contact [place] Omnicell ordered. 18:57 Forearm (radius/ulna) Ordered. EDMS 19:[address] [facility] 20:06 [facility] Payment Agreement was scanned into [employer] and attached to record. [facility] 09/06 08:11 T-Sheet-- Draft Copy was scanned into [employer] and attached to record. [facility] Administered Medications: 09/05 19:16 Drug: Tetanus- Diptheria-Acellular Pertussis 0.5 ml [diphth,pertussis(acel),tetanus 2.5 kas2 Lf unit-8 mcg-5 Lf/0.5mL IM syringe (0.5 mL)] {Campaign Manager: [employer]. Exp: 10/04/2018. Lot #: [id number]. } Route: IM; Site: right deltoid; Addendum: 09/08/2016 10:29 Addendum: radiology review of CT head demonstrating chronic change vs. small acute sd1 contusion. given setting of trauma d/w charge nurse to have patient return for re-evaluation this am. Signatures: Dispatcher [employer] EDMS Patton-Workman, Park, MD MD sd1 Ousmane Plata, RN RN ml6 Armani Champagne DO DO cs11 Mirta Holloway Kim, RN RN kas2 Park Beckwith The chart was reviewed and I authenticate all verbal orders and agree with the evaluation and treatment provided.Attachments: 09/05 20:06 [facility] Payment Agreement gjb 09/06 08:11 T-Sheet-- Draft Copy [facility] MTDD
--- NOTE | 2016-09-08 11:00 | EDDOCDS ---
Nurse's Notes [facility] Name: Rohan Mantilla Age: 75 yrs Sex: Male : 1940 Arrival Date: 09/05/2016 Time: 18:32 Bed 3 Private MD: Osvaldo Diagnosis: Laceration without foreign body of left ear;Contusion of unspecified part of head Presentation: 09/05 18:40 Presenting complaint: Patient states: states that he attempted to get into his chair ml6 without his walker, patient states that he became dizzy and fell sideways striking his right ear on table. Adult Sepsis Screening: The patient does not have new or worsening altered mentation. Patient's respiratory rate is less than 22. Systolic blood pressure is greater than 100. Patient has a qSOFA score of 0- Negative Sepsis Screen. Suicide/Homicide risk assessment- the patient denies having any suicidal and/or homicidal ideations and does not present with any other emotional, behavioral or mental health complaints. Status: Patient is not a student services coordinator or dependent. Transition of care: patient was not received from another setting of care. 18:40 Acuity: CIARA Level 3 ml6 18:40 Method Of Arrival: Walkin/Carried/Asstd ml6 Triage Assessment: 18:46 General: Appears in no apparent distress, Behavior is appropriate for age, cooperative. ml6 Pain: Location: left ear and palmar aspect of left forearm Pain currently is 3 out of 10 on a pain scale. Pain does not radiate. Quality of pain is described as aching, Pain began 30 min ago Is continuous. The patient is triaged at the bedside. See Assessment in Nurses Notes section of ED record. Neurological: No deficits noted. Level of Consciousness is awake, alert, Oriented to person, place, time, Assistant Clinical Director are equal bilaterally Moves all extremities. Full function Gait is steady, Speech is normal. Cardiovascular: No deficits noted. Capillary refill < 3 seconds is brisk in bilateral fingers toes. Musculoskeletal: cervical spine is non-tender. Circulation, motion, and sensation intact Signs and Symptoms of Compartment Syndrome: no signs of compartment syndrome. Injury Description: pt fell from standing. Historical: - Allergies: no known allergies; - Home Meds: 1. Abilify 2 mg Oral tab 2 mg daily (Last dose: 09/05/2016 08:00) 2. aspirin 81 mg Oral TbEC 1 tab once daily (Last dose: 09/05/2016 08:00) 3. atorvastatin 40 mg oral tab 1 tab once daily (Last dose: 09/05/2016 08:00) 4. B12 1000mcg 1 tab daily (Last dose: 09/05/2016 08:00) 5. bisoprolol fumarate 5 mg oral tab 0.5 tab once daily (Last dose: 09/05/2016 08:00) 6. bupropion HCl 150 mg Oral TbER 2 tab once daily (Last dose: 09/05/2016 08:00) 7. Drisdol 50,000 unit Oral cap 1 cap once wkly (Last dose: 09/05/2016 08:00) 8. indapamide 1.25 mg Oral tab 1 tab every two days (Last dose: 09/05/2016 08:00) 9. Lantus 100 unit/mL Sub-Q soln 12 unit nightly (Last dose: 09/04/2016 20:00) 10. levothyroxine 50 mcg Oral cap once daily (Last dose: 09/05/2016 08:00) 11. Lofibra 200 mg oral cap 1 cap once daily (Last dose: 09/05/2016 08:00) 12. Mapap (acetaminophen) 325 mg oral tab 2 tabs every 4 hours (Last dose: 09/05/2016 08:00) 13. Milk of Magnesia 400 mg/5 mL Oral susp 30 mL once daily (Last dose: 09/05/2016 08:00) 14. mirtazapine 7.5 mg Oral tab 1 tabs once daily (Last dose: 09/05/2016 08:00) 15. Novolin 70/30 Innolet 36 units Sub-Q 70-30 unit/mL (Last dose: 09/05/2016 12:00) 16. venlafaxine 75 mg oral tab 2 tab 2 times per day (Last dose: 09/05/2016 08:00) - PMHx: Anxiety; Atrial Fib; Diabetes; Hypercholesterolemia; Hypertension; Hypothyroidism; kidney disease; - PSHx: Colostomy Construction; - Social history: Smoking status: Patient states former smoker of tobacco. No barriers to communication noted, Speaks appropriately for age. - Family history: Not pertinent. - : The pt / caregiver states he / she is not on anticoagulants. Home medication list is obtained from the patient. - Exposure Risk Screening:: None identified. Screenin:47 Screening information is obtained from the patient. Fall risk: No risks identified. ml6 Assistance ADL's: requires no assistance with activities of daily living. Abuse/DV Screen: The patient / caregiver reports he/she is: not in a situation that causes fear, pain or injury. Nutritional screening: No deficits noted. Advance Directives: Currently, there is no health care proxy. home support is adequate. Assessment: 18:47 General: see triage assessment. 6 19:02 General: Verbal report given by Vikash Plata RN. Assumed care of patient at this time.. kas2 19:45 General: Appears in no apparent distress, comfortable, well nourished, well groomed, kas2 Behavior is appropriate for age, cooperative. Pain: Location: left arm and left ear and palmar aspect of left forearm Pain currently is 4 out of 10 on a pain scale. Neurological: Level of Consciousness is awake, alert, Oriented to person, place, time. Cardiovascular: Capillary refill < 3 seconds Heart tones S1 S2 present Rhythm is sinus rhythm No ectopy. Respiratory: Airway is patent Respiratory effort is even, unlabored, Respiratory pattern is regular, symmetrical, Breath sounds are clear bilaterally. Derm: Skin is intact, is healthy with good turgor, Skin is dry, Skin is pink, warm & dry. Skin temperature is warm. Injury Description: Laceration sustained to left ear. 20:23 General: Dr. Champagne in the room suturing up left ear at this time.. kas2 20:45 General: Patient sitting up in bed with no complaints of pain or discomfort at this kas2 time. Bleeding controlled to left ear. No apparent distress. Call khan within reach. Will continue to monitor at this time.. 21:02 General: Report called to Nursing groundskeeper supervisor Luh NINO at [facility] assisted living.. kas2 Vital Signs: 18:41 BP 143 / 68; Pulse 72; Resp 16; Temp 97.3(O); Pulse Ox 97% on R/A; Weight 95.16 kg (R); ml6 Height 5 ft. 8 in. (172.72 cm) (R); Pain 2/10; 18:45 BP 129 / 62 (auto/); kas2 18:45 Pulse 71 MON; Pulse Ox 97% ; kas2 19:00 BP 183 / 84 (auto/); kas2 19:00 Pulse 81 MON; Pulse Ox 96% ; kas2 19:14 BP 139 / 68 (auto/); kas2 19:14 Pulse 73 MON; Pulse Ox 96% ; kas2 19:16 BP 142 / 72 (auto/); kas2 19:16 Pulse 72 MON; Pulse Ox 97% ; kas2 19:31 BP 136 / 64 (auto/); kas2 19:31 Pulse 71 MON; Pulse Ox 93% ; kas2 19:46 BP 133 / 75 (auto/); kas2 19:46 Pulse 72 MON; Pulse Ox 92% ; kas2 19:47 Resp 20; Temp 98.2(O); kas2 20:01 BP 142 / 63 (auto/); kas2 20:01 Pulse 69 MON; Pulse Ox 94% ; kas2 20:16 BP 156 / 88 (auto/); kas2 20:16 Pulse 70 MON; Pulse Ox 96% ; kas2 20:31 BP 153 / 80 (auto/); kas2 20:31 Pulse 70 MON; Pulse Ox 97% ; kas2 20:46 BP 151 / 85 (auto/); kas2 20:46 Pulse 71 MON; Pulse Ox 95% ; kas2 18:41 Body Mass Index 31.90 (95.16 kg, 172.72 cm) 6 Vitals: 18:41 Log In Time N/A - ambulance arrival. 6 ED Course: 18:33 Patient visited by Cari Ibrahim Fire Control Officer. lbd 18:33 [place] is Private Physician. lbd 18:33 Patient moved to Waiting lbd 18:34 Ousmane Plata, RN is Primary Nurse. lbd 18:34 Patient moved to 3 lbd 18:41 Triage Initiated ml6 18:47 The patient / caregiver is instructed regarding the plan of care and ED course. ml6 18:53 Armani Champagne DO is Attending Physician. cs11 18:53 Patient visited by Armani Champagne DO. cs11 19:02 Zuri Owens,MICA is Primary Nurse. kas2 19:03 Patient visited by Zuri Owens,MICA. kas2 19:47 Patient visited by Zuri Owens RN. kas2 20:04 CT Head Without Contrast Returned. EDMS 20:04 CT Spine,Cervical W/o Contrast Returned. EDMS 20:04 Forearm (radius/ulna) Returned. EDMS 20:06 [facility] Payment Agreement was scanned into [employer] and attached to record. gjb 20:20 Patient visited by Zuri Owens RN. kas2 20:23 Patient visited by Zuri Owens RN. kas2 20:40 Osvaldo is Referral Physician. cs11 21:01 No IV's were initiated during this patient's visit. No procedures done that require kas2 assistance. 21:02 Patient visited by Zuri Owens RN. kas2 09/06 08:11 T-Sheet-- Draft Copy was scanned into [employer] and attached to record. [facility] Administered Medications: 09/05 19:16 Drug: Tetanus- Diptheria-Acellular Pertussis 0.5 ml [diphth,pertussis(acel),tetanus 2.5 kas2 Lf unit-8 mcg-5 Lf/0.5mL IM syringe (0.5 mL)] {Adult Educator: [email or web address]. Exp: 10/04/2018. Lot #: [id number]. } Route: IM; Site: right deltoid; Order Results: Radiology Order: CT Head Without Contrast Test: CT Head Without Contrast REASON FOR EXAMINATION: Trauma; Clinical: Trauma.; ; Comparison: 05/18/2016.; ; Findings:; ; There is a very small hyperdense focus along the right post central gyrus (image; 23) while this may reflect chronic change, a very small contusion cannot be; excluded.; ; The ventricles and sulci are otherwise symmetric and demonstrate atrophic; changes. The vazquez-white differentiation is maintained without evidence for acute; infarction. No further intracranial hemorrhage mass or mass effect is; identified. No extra-axial fluid collection is appreciated. The calvarium is; intact the sinuses are clear.; ; ; Impression:; Very small hyperdense focus along the right post central gyrus may reflect; chronic change versus small acute contusion.; No further acute intracranial hemorrhage, infarction, or mass/mass effect.; Age related atrophy and microvascular ischemic changes.; ; ; Signed by; Elkin Cabello MD 09/05/2016 07:15 P; Radiology Order: CT Spine,Cervical W/o Contrast Test: CT Spine,Cervical W/o Contrast REASON FOR EXAMINATION: Trauma; Clinical: Trauma.; ; Technique: Axial noncontrast images from the skull base to the thoracic inlet; with coronal and sagittal re-formations.; ; Findings:; Straightening of normal lordosis is secondary to positioning versus pain/spasm.; Osteopenia and advanced multilevel degenerative changes includes anterior and; posterior osteophytosis along with posterior longitudinal ligament; calcifications, endplate sclerosis and disc space narrowing. 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 Partial; fusion at C7-T1. No obvious acute fracture / compression injury or subluxation.; Posterior elements and spinous processes demonstrate degenerative changes without; acute fracture. Paravertebral soft tissues are grossly normal.; ; Impression:; Osteopenia and multilevel degenerative changes as described above.; Straightening of normal lordosis likely chronic and related to positioning.; No acute fracture / compression injury or subluxation identified.; ; ; Signed by; Elkin Cabello MD 09/05/2016 07:19 P; Radiology Order: Forearm (radius/ulna) Test: Forearm (radius/ulna) REASON FOR EXAMINATION: Trauma; Clinical: Trauma.; ; Technique: AP and lateral views of the left forearm.; ; Findings:; Age-related osteopenia and degenerative changes at the wrist and elbow are; suggested. No obvious acute fracture or dislocation. No subcutaneous emphysema; or radiodense foreign body.; ; Impression:; Age-related changes. No acute fracture or dislocation identified.; ; ; Signed by; Elkin Cabello MD 09/05/2016 07:36 P; Outcome: 20:43 Discharge ordered by Provider. 11 21:01 Discharge Assessment: patient administered narcotics - no. The following High Risk [facility] Discharge criteria are identified: None. Discharged to Extended Care Facility [facility] assisted. Condition: good Condition: stable Condition: improved. CT Study completed. Property :Personal belongings accompany Pt. 21:02 Patient left the ED. kas2 Addendum: 09/08/2016 10:56 Narrative: Spoke with Frances at [facility] (1st floor assisted) and she will have patient kcs return. Per Dr. Patton, patient to return for recheck and repeat head CT. Signatures: Dispatcher [employer] EDMS Beata Jarquin RN RN kcs Cari Ibrahim, Fire Control Officer Unit lbd Ousmane Plata RN RN ml6 Armani Champagne DO DO cs11 Mirta Holloway Kim,RN RN kas2 Park Beckwith Corrections: (The following items were deleted from the chart) 10:59 10:56 Narrative: Spoke with Frances at [facility] (1st floor assisted) and she will have kcs patient return. kcs MTDD
--- NOTE | 2016-09-08 11:01 | EDDOCDS ---
Nurse's Notes [facility] Name: Rohan Mantilla Age: 75 yrs Sex: Male : 1940 Arrival Date: 09/05/2016 Time: 18:32 Bed 3 Private MD: Osvaldo Diagnosis: Laceration without foreign body of left ear;Contusion of unspecified part of head Presentation: 09/05 18:40 Presenting complaint: Patient states: states that he attempted to get into his chair ml6 without his walker, patient states that he became dizzy and fell sideways striking his right ear on table. Adult Sepsis Screening: The patient does not have new or worsening altered mentation. Patient's respiratory rate is less than 22. Systolic blood pressure is greater than 100. Patient has a qSOFA score of 0- Negative Sepsis Screen. Suicide/Homicide risk assessment- the patient denies having any suicidal and/or homicidal ideations and does not present with any other emotional, behavioral or mental health complaints. Status: Patient is not a guest services assistant or dependent. Transition of care: patient was not received from another setting of care. 18:40 Acuity: CIARA Level 3 ml6 18:40 Method Of Arrival: Walkin/Carried/Asstd ml6 Triage Assessment: 18:46 General: Appears in no apparent distress, Behavior is appropriate for age, cooperative. ml6 Pain: Location: left ear and palmar aspect of left forearm Pain currently is 3 out of 10 on a pain scale. Pain does not radiate. Quality of pain is described as aching, Pain began 30 min ago Is continuous. The patient is triaged at the bedside. See Assessment in Nurses Notes section of ED record. Neurological: No deficits noted. Level of Consciousness is awake, alert, Oriented to person, place, time, Loan Operations Specialist are equal bilaterally Moves all extremities. Full function Gait is steady, Speech is normal. Cardiovascular: No deficits noted. Capillary refill < 3 seconds is brisk in bilateral fingers toes. Musculoskeletal: cervical spine is non-tender. Circulation, motion, and sensation intact Signs and Symptoms of Compartment Syndrome: no signs of compartment syndrome. Injury Description: pt fell from standing. Historical: - Allergies: no known allergies; - Home Meds: 1. Abilify 2 mg Oral tab 2 mg daily (Last dose: 09/05/2016 08:00) 2. aspirin 81 mg Oral TbEC 1 tab once daily (Last dose: 09/05/2016 08:00) 3. atorvastatin 40 mg oral tab 1 tab once daily (Last dose: 09/05/2016 08:00) 4. B12 1000mcg 1 tab daily (Last dose: 09/05/2016 08:00) 5. bisoprolol fumarate 5 mg oral tab 0.5 tab once daily (Last dose: 09/05/2016 08:00) 6. bupropion HCl 150 mg Oral TbER 2 tab once daily (Last dose: 09/05/2016 08:00) 7. Drisdol 50,000 unit Oral cap 1 cap once wkly (Last dose: 09/05/2016 08:00) 8. indapamide 1.25 mg Oral tab 1 tab every two days (Last dose: 09/05/2016 08:00) 9. Lantus 100 unit/mL Sub-Q soln 12 unit nightly (Last dose: 09/04/2016 20:00) 10. levothyroxine 50 mcg Oral cap once daily (Last dose: 09/05/2016 08:00) 11. Lofibra 200 mg oral cap 1 cap once daily (Last dose: 09/05/2016 08:00) 12. Mapap (acetaminophen) 325 mg oral tab 2 tabs every 4 hours (Last dose: 09/05/2016 08:00) 13. Milk of Magnesia 400 mg/5 mL Oral susp 30 mL once daily (Last dose: 09/05/2016 08:00) 14. mirtazapine 7.5 mg Oral tab 1 tabs once daily (Last dose: 09/05/2016 08:00) 15. Novolin 70/30 Innolet 36 units Sub-Q 70-30 unit/mL (Last dose: 09/05/2016 12:00) 16. venlafaxine 75 mg oral tab 2 tab 2 times per day (Last dose: 09/05/2016 08:00) - PMHx: Anxiety; Atrial Fib; Diabetes; Hypercholesterolemia; Hypertension; Hypothyroidism; kidney disease; - PSHx: Colostomy Construction; - Social history: Smoking status: Patient states former smoker of tobacco. No barriers to communication noted, Speaks appropriately for age. - Family history: Not pertinent. - : The pt / caregiver states he / she is not on anticoagulants. Home medication list is obtained from the patient. - Exposure Risk Screening:: None identified. Screenin:47 Screening information is obtained from the patient. Fall risk: No risks identified. ml6 Assistance ADL's: requires no assistance with activities of daily living. Abuse/DV Screen: The patient / caregiver reports he/she is: not in a situation that causes fear, pain or injury. Nutritional screening: No deficits noted. Advance Directives: Currently, there is no health care proxy. home support is adequate. Assessment: 18:47 General: see triage assessment. 6 19:02 General: Verbal report given by Vikash Plata RN. Assumed care of patient at this time.. kas2 19:45 General: Appears in no apparent distress, comfortable, well nourished, well groomed, kas2 Behavior is appropriate for age, cooperative. Pain: Location: left arm and left ear and palmar aspect of left forearm Pain currently is 4 out of 10 on a pain scale. Neurological: Level of Consciousness is awake, alert, Oriented to person, place, time. Cardiovascular: Capillary refill < 3 seconds Heart tones S1 S2 present Rhythm is sinus rhythm No ectopy. Respiratory: Airway is patent Respiratory effort is even, unlabored, Respiratory pattern is regular, symmetrical, Breath sounds are clear bilaterally. Derm: Skin is intact, is healthy with good turgor, Skin is dry, Skin is pink, warm & dry. Skin temperature is warm. Injury Description: Laceration sustained to left ear. 20:23 General: Dr. Champagne in the room suturing up left ear at this time.. kas2 20:45 General: Patient sitting up in bed with no complaints of pain or discomfort at this kas2 time. Bleeding controlled to left ear. No apparent distress. Call khan within reach. Will continue to monitor at this time.. 21:02 General: Report called to Nursing securities vault supervisor Luh NINO at [facility] assisted living.. kas2 Vital Signs: 18:41 BP 143 / 68; Pulse 72; Resp 16; Temp 97.3(O); Pulse Ox 97% on R/A; Weight 95.16 kg (R); ml6 Height 5 ft. 8 in. (172.72 cm) (R); Pain 2/10; 18:45 BP 129 / 62 (auto/); kas2 18:45 Pulse 71 MON; Pulse Ox 97% ; kas2 19:00 BP 183 / 84 (auto/); kas2 19:00 Pulse 81 MON; Pulse Ox 96% ; kas2 19:14 BP 139 / 68 (auto/); kas2 19:14 Pulse 73 MON; Pulse Ox 96% ; kas2 19:16 BP 142 / 72 (auto/); kas2 19:16 Pulse 72 MON; Pulse Ox 97% ; kas2 19:31 BP 136 / 64 (auto/); kas2 19:31 Pulse 71 MON; Pulse Ox 93% ; kas2 19:46 BP 133 / 75 (auto/); kas2 19:46 Pulse 72 MON; Pulse Ox 92% ; kas2 19:47 Resp 20; Temp 98.2(O); kas2 20:01 BP 142 / 63 (auto/); kas2 20:01 Pulse 69 MON; Pulse Ox 94% ; kas2 20:16 BP 156 / 88 (auto/); kas2 20:16 Pulse 70 MON; Pulse Ox 96% ; kas2 20:31 BP 153 / 80 (auto/); kas2 20:31 Pulse 70 MON; Pulse Ox 97% ; kas2 20:46 BP 151 / 85 (auto/); kas2 20:46 Pulse 71 MON; Pulse Ox 95% ; kas2 18:41 Body Mass Index 31.90 (95.16 kg, 172.72 cm) 6 Vitals: 18:41 Log In Time N/A - ambulance arrival. 6 ED Course: 18:33 Patient visited by Cari Ibrahim Development Eng. lbd 18:33 [place] is Private Physician. lbd 18:33 Patient moved to Waiting lbd 18:34 Ousmane Plata, RN is Primary Nurse. lbd 18:34 Patient moved to 3 lbd 18:41 Triage Initiated ml6 18:47 The patient / caregiver is instructed regarding the plan of care and ED course. ml6 18:53 Armani Champagne DO is Attending Physician. cs11 18:53 Patient visited by Armani Champagne DO. cs11 19:02 Zuri Owens,MICA is Primary Nurse. kas2 19:03 Patient visited by Zuri Owens,MICA. kas2 19:47 Patient visited by Zuri Owens RN. kas2 20:04 CT Head Without Contrast Returned. EDMS 20:04 CT Spine,Cervical W/o Contrast Returned. EDMS 20:04 Forearm (radius/ulna) Returned. EDMS 20:06 [facility] Payment Agreement was scanned into [employer] and attached to record. gjb 20:20 Patient visited by Zuri Owens RN. kas2 20:23 Patient visited by Zuri Owens RN. kas2 20:40 Osvaldo is Referral Physician. cs11 21:01 No IV's were initiated during this patient's visit. No procedures done that require kas2 assistance. 21:02 Patient visited by Zuri Owens RN. kas2 09/06 08:11 T-Sheet-- Draft Copy was scanned into [employer] and attached to record. [facility] Administered Medications: 09/05 19:16 Drug: Tetanus- Diptheria-Acellular Pertussis 0.5 ml [diphth,pertussis(acel),tetanus 2.5 kas2 Lf unit-8 mcg-5 Lf/0.5mL IM syringe (0.5 mL)] {Communications Planner: [employer]. Exp: 10/04/2018. Lot #: [id number]. } Route: IM; Site: right deltoid; Order Results: Radiology Order: CT Head Without Contrast Test: CT Head Without Contrast REASON FOR EXAMINATION: Trauma; Clinical: Trauma.; ; Comparison: 05/18/2016.; ; Findings:; ; There is a very small hyperdense focus along the right post central gyrus (image; 23) while this may reflect chronic change, a very small contusion cannot be; excluded.; ; The ventricles and sulci are otherwise symmetric and demonstrate atrophic; changes. The vazquez-white differentiation is maintained without evidence for acute; infarction. No further intracranial hemorrhage mass or mass effect is; identified. No extra-axial fluid collection is appreciated. The calvarium is; intact the sinuses are clear.; ; ; Impression:; Very small hyperdense focus along the right post central gyrus may reflect; chronic change versus small acute contusion.; No further acute intracranial hemorrhage, infarction, or mass/mass effect.; Age related atrophy and microvascular ischemic changes.; ; ; Signed by; Elkin Cabello MD 09/05/2016 07:15 P; Radiology Order: CT Spine,Cervical W/o Contrast Test: CT Spine,Cervical W/o Contrast REASON FOR EXAMINATION: Trauma; Clinical: Trauma.; ; Technique: Axial noncontrast images from the skull base to the thoracic inlet; with coronal and sagittal re-formations.; ; Findings:; Straightening of normal lordosis is secondary to positioning versus pain/spasm.; Osteopenia and advanced multilevel degenerative changes includes anterior and; posterior osteophytosis along with posterior longitudinal ligament; calcifications, endplate sclerosis and disc space narrowing. 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 Partial; fusion at C7-T1. No obvious acute fracture / compression injury or subluxation.; Posterior elements and spinous processes demonstrate degenerative changes without; acute fracture. Paravertebral soft tissues are grossly normal.; ; Impression:; Osteopenia and multilevel degenerative changes as described above.; Straightening of normal lordosis likely chronic and related to positioning.; No acute fracture / compression injury or subluxation identified.; ; ; Signed by; Elkin Cabello MD 09/05/2016 07:19 P; Radiology Order: Forearm (radius/ulna) Test: Forearm (radius/ulna) REASON FOR EXAMINATION: Trauma; Clinical: Trauma.; ; Technique: AP and lateral views of the left forearm.; ; Findings:; Age-related osteopenia and degenerative changes at the wrist and elbow are; suggested. No obvious acute fracture or dislocation. No subcutaneous emphysema; or radiodense foreign body.; ; Impression:; Age-related changes. No acute fracture or dislocation identified.; ; ; Signed by; Elkin Cabello MD 09/05/2016 07:36 P; Outcome: 20:43 Discharge ordered by Provider. 11 21:01 Discharge Assessment: patient administered narcotics - no. The following High Risk [facility] Discharge criteria are identified: None. Discharged to Extended Care Facility [facility] assisted. Condition: good Condition: stable Condition: improved. CT Study completed. Property :Personal belongings accompany Pt. 21:02 Patient left the ED. kas2 Addendum: 09/08/2016 10:56 Narrative: Spoke with Frances at [facility] (1st floor assisted) and she will have patient kcs return. Per Dr. Patton, patient to return for recheck and repeat head CT. Signatures: Dispatcher [employer] EDMS Beata Jarquin RN RN kcs Cari Ibrahim, Development Eng Unit lbd Ousmane Plata RN RN ml6 Armani Champagne DO DO cs11 Mirta Holloway Kim,RN RN kas2 Park Beckwith Corrections: (The following items were deleted from the chart) 10:59 10:56 Narrative: Spoke with Frances at [facility] (1st floor assisted) and she will have kcs patient return. kcs Chart Complete MTDD
--- NOTE | 2016-09-08 11:01 | EDDOCDS ---
Physician Documentation [facility] Name: Rohan Mantilla Age: 75 yrs Sex: Male : 1940 Arrival Date: 09/05/2016 Time: 18:32 Bed 3 Private MD: Osvaldo Disposition: 09/05/16 20:43 Discharged to Home/Self Care. Impression: Laceration without foreign body of left ear, Contusion of unspecified part of head. - Condition is Stable. - Medication Reconciliation, Local Pharmacy Hours form. - Follow up: Osvaldo; When: 1 week; Reason: Staple/Suture removal. - Problem is new. - Symptoms have improved. Historical: - Allergies: no known allergies; - Home Meds: 1. Abilify 2 mg Oral tab 2 mg daily (Last dose: 09/05/2016 08:00) 2. aspirin 81 mg Oral TbEC 1 tab once daily (Last dose: 09/05/2016 08:00) 3. atorvastatin 40 mg oral tab 1 tab once daily (Last dose: 09/05/2016 08:00) 4. B12 1000mcg 1 tab daily (Last dose: 09/05/2016 08:00) 5. bisoprolol fumarate 5 mg oral tab 0.5 tab once daily (Last dose: 09/05/2016 08:00) 6. bupropion HCl 150 mg Oral TbER 2 tab once daily (Last dose: 09/05/2016 08:00) 7. Drisdol 50,000 unit Oral cap 1 cap once wkly (Last dose: 09/05/2016 08:00) 8. indapamide 1.25 mg Oral tab 1 tab every two days (Last dose: 09/05/2016 08:00) 9. Lantus 100 unit/mL Sub-Q soln 12 unit nightly (Last dose: 09/04/2016 20:00) 10. levothyroxine 50 mcg Oral cap once daily (Last dose: 09/05/2016 08:00) 11. Lofibra 200 mg oral cap 1 cap once daily (Last dose: 09/05/2016 08:00) 12. Mapap (acetaminophen) 325 mg oral tab 2 tabs every 4 hours (Last dose: 09/05/2016 08:00) 13. Milk of Magnesia 400 mg/5 mL Oral susp 30 mL once daily (Last dose: 09/05/2016 08:00) 14. mirtazapine 7.5 mg Oral tab 1 tabs once daily (Last dose: 09/05/2016 08:00) 15. Novolin 70/30 Innolet 36 units Sub-Q 70-30 unit/mL (Last dose: 09/05/2016 12:00) 16. venlafaxine 75 mg oral tab 2 tab 2 times per day (Last dose: 09/05/2016 08:00) - PMHx: Anxiety; Atrial Fib; Diabetes; Hypercholesterolemia; Hypertension; Hypothyroidism; kidney disease; - PSHx: Colostomy Construction; - Social history: Smoking status: Patient states former smoker of tobacco. No barriers to communication noted, Speaks appropriately for age. - Family history: Not pertinent. - : The pt / caregiver states he / she is not on anticoagulants. Home medication list is obtained from the patient. - Exposure Risk Screening:: None identified. Vital Signs: 09/05 18:41 BP 143 / 68; Pulse 72; Resp 16; Temp 97.3(O); Pulse Ox 97% on R/A; Weight 95.16 kg / ml6 209.79 lbs (R); Height 5 ft. 8 in. (172.72 cm) (R); Pain 2/10; 18:45 BP 129 / 62 (auto/); kas2 18:45 Pulse 71 MON; Pulse Ox 97% ; kas2 19:00 BP 183 / 84 (auto/); kas2 19:00 Pulse 81 MON; Pulse Ox 96% ; kas2 19:14 BP 139 / 68 (auto/); kas2 19:14 Pulse 73 MON; Pulse Ox 96% ; kas2 19:16 BP 142 / 72 (auto/); kas2 19:16 Pulse 72 MON; Pulse Ox 97% ; kas2 19:31 BP 136 / 64 (auto/); kas2 19:31 Pulse 71 MON; Pulse Ox 93% ; kas2 19:46 BP 133 / 75 (auto/); kas2 19:46 Pulse 72 MON; Pulse Ox 92% ; kas2 19:47 Resp 20; Temp 98.2(O); kas2 20:01 BP 142 / 63 (auto/); kas2 20:01 Pulse 69 MON; Pulse Ox 94% ; kas2 20:16 BP 156 / 88 (auto/); kas2 20:16 Pulse 70 MON; Pulse Ox 96% ; kas2 20:31 BP 153 / 80 (auto/); kas2 20:31 Pulse 70 MON; Pulse Ox 97% ; kas2 20:46 BP 151 / 85 (auto/); kas2 20:46 Pulse 71 MON; Pulse Ox 95% ; kas2 18:41 Body Mass Index 31.90 (95.16 kg, 172.72 cm) ml6 Procedures: 20:36 Laceration repair:. cs11 Laceration: 20:36 Wound Repair of 1.5cm ( 0.6in ) full thickness laceration to left ear. Distal cs11 neuro/vascular/tendon intact. Anesthesia: Local anesthetic administered with 2.0 mls of 1% lidocaine. Wound prep: Moderate cleansing with hibiclenz by provider. Skin closed with 5 x 3-0 Ethilon using Simple interrupted sutures. Patient tolerated well. MDM: 18:53 CT Head Without Contrast Ordered. EDMS 18:53 CT Spine,Cervical W/o Contrast Ordered. EDMS 18:55 Tetanus- Diptheria-Acellular Pertussis 0.5 ml IM once; Routine booster 10-64yrs, >64 cs11 with child contact [place] [employer] ordered. 18:57 Forearm (radius/ulna) Ordered. EDMS 19:55 Financial registration complete. [facility] 20:06 [facility] Payment Agreement was scanned into [employer] and attached to record. [facility] 09/06 08:11 T-Sheet-- Draft Copy was scanned into [employer] and attached to record. [facility] Administered Medications: 09/05 19:16 Drug: Tetanus- Diptheria-Acellular Pertussis 0.5 ml [diphth,pertussis(acel),tetanus 2.5 kas2 Lf unit-8 mcg-5 Lf/0.5mL IM syringe (0.5 mL)] {Industrial Relations Analyst: [employer]. Exp: 10/04/2018. Lot #: [id number]. } Route: IM; Site: right deltoid; Addendum: 09/08/2016 10:29 Addendum: radiology review of CT head demonstrating chronic change vs. small acute sd1 contusion. given setting of trauma d/w charge nurse to have patient return for re-evaluation this am. Signatures: Dispatcher [employer] EDMS Patton-Workman, Park, MD MD sd1 Ousmane Plata, RN RN ml6 Armani Champagne DO DO cs11 Mirta Holloway Kim, RN RN kas2 Park Beckwith The chart was reviewed and I authenticate all verbal orders and agree with the evaluation and treatment provided.Attachments: 09/05 20:06 [facility] Payment Agreement gjb 09/06 08:11 T-Sheet-- Draft Copy [facility] Chart Complete MTDD
--- NOTE | 2016-09-08 11:01 | EDDOCDS ---
Physician Documentation [facility] Name: Rohan Mantilla Age: 75 yrs Sex: Male : 1940 Arrival Date: 09/05/2016 Time: 18:32 Bed 3 Private MD: Osvaldo Disposition: 09/05/16 20:43 Discharged to Home/Self Care. Impression: Laceration without foreign body of left ear, Contusion of unspecified part of head. - Condition is Stable. - Medication Reconciliation, Local Pharmacy Hours form. - Follow up: Osvaldo; When: 1 week; Reason: Staple/Suture removal. - Problem is new. - Symptoms have improved. Historical: - Allergies: no known allergies; - Home Meds: 1. Abilify 2 mg Oral tab 2 mg daily (Last dose: 09/05/2016 08:00) 2. aspirin 81 mg Oral TbEC 1 tab once daily (Last dose: 09/05/2016 08:00) 3. atorvastatin 40 mg oral tab 1 tab once daily (Last dose: 09/05/2016 08:00) 4. B12 1000mcg 1 tab daily (Last dose: 09/05/2016 08:00) 5. bisoprolol fumarate 5 mg oral tab 0.5 tab once daily (Last dose: 09/05/2016 08:00) 6. bupropion HCl 150 mg Oral TbER 2 tab once daily (Last dose: 09/05/2016 08:00) 7. Drisdol 50,000 unit Oral cap 1 cap once wkly (Last dose: 09/05/2016 08:00) 8. indapamide 1.25 mg Oral tab 1 tab every two days (Last dose: 09/05/2016 08:00) 9. Lantus 100 unit/mL Sub-Q soln 12 unit nightly (Last dose: 09/04/2016 20:00) 10. levothyroxine 50 mcg Oral cap once daily (Last dose: 09/05/2016 08:00) 11. Lofibra 200 mg oral cap 1 cap once daily (Last dose: 09/05/2016 08:00) 12. Mapap (acetaminophen) 325 mg oral tab 2 tabs every 4 hours (Last dose: 09/05/2016 08:00) 13. Milk of Magnesia 400 mg/5 mL Oral susp 30 mL once daily (Last dose: 09/05/2016 08:00) 14. mirtazapine 7.5 mg Oral tab 1 tabs once daily (Last dose: 09/05/2016 08:00) 15. Novolin 70/30 Innolet 36 units Sub-Q 70-30 unit/mL (Last dose: 09/05/2016 12:00) 16. venlafaxine 75 mg oral tab 2 tab 2 times per day (Last dose: 09/05/2016 08:00) - PMHx: Anxiety; Atrial Fib; Diabetes; Hypercholesterolemia; Hypertension; Hypothyroidism; kidney disease; - PSHx: Colostomy Construction; - Social history: Smoking status: Patient states former smoker of tobacco. No barriers to communication noted, Speaks appropriately for age. - Family history: Not pertinent. - : The pt / caregiver states he / she is not on anticoagulants. Home medication list is obtained from the patient. - Exposure Risk Screening:: None identified. Vital Signs: 09/05 18:41 BP 143 / 68; Pulse 72; Resp 16; Temp 97.3(O); Pulse Ox 97% on R/A; Weight 95.16 kg / ml6 209.79 lbs (R); Height 5 ft. 8 in. (172.72 cm) (R); Pain 2/10; 18:45 BP 129 / 62 (auto/); kas2 18:45 Pulse 71 MON; Pulse Ox 97% ; kas2 19:00 BP 183 / 84 (auto/); kas2 19:00 Pulse 81 MON; Pulse Ox 96% ; kas2 19:14 BP 139 / 68 (auto/); kas2 19:14 Pulse 73 MON; Pulse Ox 96% ; kas2 19:16 BP 142 / 72 (auto/); kas2 19:16 Pulse 72 MON; Pulse Ox 97% ; kas2 19:31 BP 136 / 64 (auto/); kas2 19:31 Pulse 71 MON; Pulse Ox 93% ; kas2 19:46 BP 133 / 75 (auto/); kas2 19:46 Pulse 72 MON; Pulse Ox 92% ; kas2 19:47 Resp 20; Temp 98.2(O); kas2 20:01 BP 142 / 63 (auto/); kas2 20:01 Pulse 69 MON; Pulse Ox 94% ; kas2 20:16 BP 156 / 88 (auto/); kas2 20:16 Pulse 70 MON; Pulse Ox 96% ; kas2 20:31 BP 153 / 80 (auto/); kas2 20:31 Pulse 70 MON; Pulse Ox 97% ; kas2 20:46 BP 151 / 85 (auto/); kas2 20:46 Pulse 71 MON; Pulse Ox 95% ; kas2 18:41 Body Mass Index 31.90 (95.16 kg, 172.72 cm) ml6 Procedures: 20:36 Laceration repair:. cs11 Laceration: 20:36 Wound Repair of 1.5cm ( 0.6in ) full thickness laceration to left ear. Distal cs11 neuro/vascular/tendon intact. Anesthesia: Local anesthetic administered with 2.0 mls of 1% lidocaine. Wound prep: Moderate cleansing with hibiclenz by provider. Skin closed with 5 x 3-0 Ethilon using Simple interrupted sutures. Patient tolerated well. MDM: 18:53 CT Head Without Contrast Ordered. EDMS 18:53 CT Spine,Cervical W/o Contrast Ordered. EDMS 18:55 Tetanus- Diptheria-Acellular Pertussis 0.5 ml IM once; Routine booster 10-64yrs, >64 cs11 with child contact [place] [employer] ordered. 18:57 Forearm (radius/ulna) Ordered. EDMS 19:55 Financial registration complete. [facility] 20:06 [facility] Payment Agreement was scanned into [employer] and attached to record. [facility] 09/06 08:11 T-Sheet-- Draft Copy was scanned into [employer] and attached to record. [facility] Administered Medications: 09/05 19:16 Drug: Tetanus- Diptheria-Acellular Pertussis 0.5 ml [diphth,pertussis(acel),tetanus 2.5 kas2 Lf unit-8 mcg-5 Lf/0.5mL IM syringe (0.5 mL)] {Bird Tender: [employer]. Exp: 10/04/2018. Lot #: [id number]. } Route: IM; Site: right deltoid; Addendum: 09/08/2016 10:29 Addendum: radiology review of CT head demonstrating chronic change vs. small acute sd1 contusion. given setting of trauma d/w charge nurse to have patient return for re-evaluation this am. Signatures: Dispatcher [employer] EDMS Patton-Workman, Park, MD MD sd1 Ousmane Plata, RN RN ml6 Armani Champagne DO DO cs11 Mirta Holloway Kim, RN RN kas2 Park Beckwith The chart was reviewed and I authenticate all verbal orders and agree with the evaluation and treatment provided.Attachments: 09/05 20:06 [facility] Payment Agreement gjb 09/06 08:11 T-Sheet-- Draft Copy [facility] Chart Complete MTDD
== END 2016-09-05 21:02 | disposition home or self-care (01) ==
LOC: M ED 18:32
DX: S01.312A Laceration without foreign body of left ear, initial encounter (principal); S50.812A Abrasion of left forearm, initial encounter; W07.XXXA Fall from chair, initial encounter; Y92.129 Unspecified place in nursing home as the place of occurrence of the external cause; Y93.89 Activity, other specified; Y99.8 Other external cause status; E11.9 Type 2 diabetes mellitus without complications; I10 Essential (primary) hypertension; I48.91 Unspecified atrial fibrillation; F41.9 Anxiety disorder, unspecified; E78.00 Pure hypercholesterolemia, unspecified; E03.9 Hypothyroidism, unspecified; N28.9 Disorder of kidney and ureter, unspecified; Z79.899 Other long term (current) drug therapy; Z79.82 Long term (current) use of aspirin; Z79.52 Long term (current) use of systemic steroids; Z79.4 Long term (current) use of insulin; Z87.891 Personal history of nicotine dependence

== ENCOUNTER 2016-09-08 11:28 | Emergency (ER) | payer MEDICARE, MEDICAID ==
--- NOTE | 2016-09-08 12:58 | EDDOCDS ---
Physician Documentation [facility] Name: Rohan Mantilla Age: 75 yrs Sex: Male : 1940 Arrival Date: 09/08/2016 Time: 11:28 Bed I9 / 22 Private MD: Disposition: 09/08/16 12:34 Discharged to Home/Self Care. Impression: Traumatic hemorrhage of cerebrum, unspecified, without loss of consciousness - right parietal lobe contusion resolved, subsequent visit. - Condition is Stable. - Discharge Instructions: Head Injury, Adult, Sutured Wound Care. - Medication Reconciliation, Local Pharmacy Hours form. - Follow up: Guille Riley MD; When: As previously arranged; Reason: Recheck today's complaints, Continuance of care. - Problem is new. - Symptoms have improved. - Notes: change dressing once daily or more often as needed. have wounds evaluated by your physician tomorrow as scheduled. return to ER if you develop severe headaches or vomiting or signs of infection involving your wounds. Historical: - Allergies: no known allergies; - Home Meds: 1. Abilify 2 mg Oral tab 2 mg daily 2. aspirin 81 mg Oral TbEC 1 tab once daily 3. atorvastatin 40 mg oral tab 1 tab once daily 4. B12 1000mcg 1 tab daily 5. bisoprolol fumarate 5 mg oral tab 0.5 tab once daily 6. bupropion HCl 150 mg Oral TbER 2 tab once daily 7. Drisdol 50,000 unit Oral cap 1 cap once wkly 8. indapamide 1.25 mg Oral tab 1 tab every two days 9. Lantus 100 unit/mL Sub-Q soln 12 unit nightly 10. levothyroxine 50 mcg Oral cap once daily 11. Lofibra 200 mg oral cap 1 cap once daily 12. Mapap (acetaminophen) 325 mg oral tab 2 tabs every 4 hours 13. Milk of Magnesia 400 mg/5 mL Oral susp 30 mL once daily 14. mirtazapine 7.5 mg Oral tab 1 tabs once daily 15. venlafaxine 75 mg oral tab 2 tab 2 times per day 16. Novolin 70/30 [place] 36 units Sub-Q 70-30 unit/mL - PMHx: Anxiety; Atrial Fib; Diabetes; Hypercholesterolemia; Hypertension; Hypothyroidism; kidney disease; - PSHx: Colon Resection; Colostomy Construction; - Social history: Smoking status: Patient states was never smoker of tobacco. No barriers to communication noted, The patient speaks fluent [place]. - Family history: Not pertinent. - : The pt / caregiver states he / she is not on anticoagulants. Home medication list is obtained from the patient. - Exposure Risk Screening:: None identified. Vital Signs: 09/08 11:39 BP 151 / 72; Pulse 70; Resp 16; Temp 97.7(O); Pulse Ox 95% on R/A; Weight 97.52 kg / sew 214.99 lbs; Height 5 ft. 8 in. (172.72 cm); Pain 0/10; 12:41 BP 133 / 71; Pulse 63; Resp 16; Temp 97.0(O); Pulse Ox 95% on R/A; Pain 0/10; sew 11:39 Body Mass Index 32.69 (97.52 kg, 172.72 cm) sew [place] Coma Score: 11:40 Eye Response: spontaneous(4). Verbal Response: oriented(5). Motor Response: obeys jmk commands(6). Total: 15. MDM: 11:32 CT Head Without Contrast Ordered. EDMS 12:31 Dressing ordered. ar2 Signatures: Dispatcher [employer] EDMS Mendel Conklin RN RN jmk Robertshaw, Aaron, PA-C PA-C ar2 MTDD
--- NOTE | 2016-09-08 12:58 | EDDOCDS ---
Nurse's Notes [facility] Name: Rohan Mantilla Age: 75 yrs Sex: Male : 1940 Arrival Date: 09/08/2016 Time: 11:28 Bed I9 / 22 Private MD: Diagnosis: Traumatic hemorrhage of cerebrum, unspecified, without loss of consciousness-right parietal lobe contusion resolved, subsequent visit Presentation: 09/08 11:40 Presenting complaint: Patient states: states recent fall with ER visit. Radiology read jmk = head bleed. here for recheck. This patient has no additional risk factors. Mechanism of Injury: resulted from a fall. Adult Sepsis Screening: The patient does not have new or worsening altered mentation. Patient's respiratory rate is less than 22. Systolic blood pressure is greater than 100. Patient has a qSOFA score of 0- Negative Sepsis Screen. Suicide/Homicide risk assessment- the patient denies having any suicidal and/or homicidal ideations and does not present with any other emotional, behavioral or mental health complaints. Status: Patient is not a patient services rep or dependent. Transition of care: patient was not received from another setting of care. 11:40 Acuity: CIARA Level 4 [facility] 11:40 Method Of Arrival: Ambulance [facility] Triage Assessment: 11:45 General: Appears. Pain: Denies pain. [facility] 11:48 Neurological: Level of Consciousness is awake, alert, Oriented to person, place, time, k Mixed Livestock Farmer are equal bilaterally Moves all extremities. Speech is normal, Facial symmetry appears normal, Pupils are PERRLA. EENT: sutured laceration to left ear.. 11:48 Cardiovascular: No deficits noted. Capillary refill < 3 seconds Clubbing of nail beds jmk is absent Heart tones S1 S2 present Edema is absent. Rhythm is irregular. Respiratory: No deficits noted. Airway is patent Respiratory effort is even, unlabored, Respiratory pattern is regular, Breath sounds are clear bilaterally. GI: Abdomen is non- distended obese, Bowel sounds present X 4 quads. Historical: - Allergies: no known allergies; - Home Meds: 1. Abilify 2 mg Oral tab 2 mg daily 2. aspirin 81 mg Oral TbEC 1 tab once daily 3. atorvastatin 40 mg oral tab 1 tab once daily 4. B12 1000mcg 1 tab daily 5. bisoprolol fumarate 5 mg oral tab 0.5 tab once daily 6. bupropion HCl 150 mg Oral TbER 2 tab once daily 7. Drisdol 50,000 unit Oral cap 1 cap once wkly 8. indapamide 1.25 mg Oral tab 1 tab every two days 9. Lantus 100 unit/mL Sub-Q soln 12 unit nightly 10. levothyroxine 50 mcg Oral cap once daily 11. Lofibra 200 mg oral cap 1 cap once daily 12. Mapap (acetaminophen) 325 mg oral tab 2 tabs every 4 hours 13. Milk of Magnesia 400 mg/5 mL Oral susp 30 mL once daily 14. mirtazapine 7.5 mg Oral tab 1 tabs once daily 15. venlafaxine 75 mg oral tab 2 tab 2 times per day 16. Novolin 70/30 [place] 36 units Sub-Q 70-30 unit/mL - PMHx: Anxiety; Atrial Fib; Diabetes; Hypercholesterolemia; Hypertension; Hypothyroidism; kidney disease; - PSHx: Colon Resection; Colostomy Construction; - Social history: Smoking status: Patient states was never smoker of tobacco. No barriers to communication noted, The patient speaks fluent [place] Sorbian. - Family history: Not pertinent. - : The pt / caregiver states he / she is not on anticoagulants. Home medication list is obtained from the patient. - Exposure Risk Screening:: None identified. Screenin:57 Screening information is obtained from the patient. Fall risk: No risks identified. jmk Assistance ADL's: requires no assistance with activities of daily living. Abuse/DV Screen: The patient / caregiver reports he/she is: not in a situation that causes fear, pain or injury. Nutritional screening: No deficits noted. Advance Directives: Currently, there is a health care proxy, audra mustafa ext [phone]. There is an active DNR order and the pt has a copy here at this time. There is no living will. There is an active Power of Electrostatic Powder Coating Technician, audra mustafa. home support is adequate. Assessment: 11:56 General: Appears in no apparent distress. Neurological: Level of Consciousness is jmk alert, Oriented to person, place, time, Mixed Livestock Farmer are equal bilaterally Moves all extremities. Speech is normal, Facial symmetry appears normal, Pupils are PERRLA. Cardiovascular: Capillary refill < 3 seconds Clubbing of nail beds is absent Heart tones S1 S2 present. Respiratory: No deficits noted. Airway is patent Respiratory effort is even, unlabored, Respiratory pattern is regular, Breath sounds are clear bilaterally. GI: Abdomen is obese, Bowel sounds present X 4 quads. 12:56 General: dressing change completed to left elbow. Adaptic and kerlex gauze applied. jmk tolerated well. remains neuro intact. Vital Signs: 11:39 BP 151 / 72; Pulse 70; Resp 16; Temp 97.7(O); Pulse Ox 95% on R/A; Weight 97.52 kg; sew Height 5 ft. 8 in. (172.72 cm); Pain 0/10; 12:41 BP 133 / 71; Pulse 63; Resp 16; Temp 97.0(O); Pulse Ox 95% on R/A; Pain 0/10; sew 11:39 Body Mass Index 32.69 (97.52 kg, 172.72 cm) sew Vitals: 11:39 Log In Time N/A - ambulance arrival. sew [place] Coma Score: 11:40 Eye Response: spontaneous(4). Verbal Response: oriented(5). Motor Response: obeys k commands(6). Total: 15. ED Course: 11:29 Patient visited by Sera Gallegos, Blender Laborer. deg 11:29 Patient moved to Waiting deg 11:29 Patient moved to I9 / 22 deg 11:39 Pt greeted and oriented to ED. Patient advised of names of staff involved in care, sew location of call khan, wait times and NPO status. Accompanied by Family Member, Patient has correct armband on for positive identification. Placed in gown. Bed in low position. Call light in reach. Side rails up X2. Head of bed elevated pt pulled up in bed. Assisted with dressing. Repositioned patient. 11:40 Patient visited by Park Leahy. sew 11:41 Triage Initiated jmk 11:57 The patient / caregiver is instructed regarding the plan of care and ED course. jmk 11:59 Patient visited by Mendel Conklin RN. jmk 12:07 Alberto Black [facility]C [facility]. ar2 12:07 Sylwia Sotomayor MD is Attending Physician. ar2 12:23 Patient visited by Alberto Black PA-C. ar2 12:32 Guille Riley MD is Referral Physician. ar2 12:42 Patient visited by Park Leahy. sew 12:56 No IV's were initiated during this patient's visit. No procedures done that require jmk assistance. Order Results: There are currently no results for this order. Outcome: 12:34 Discharge ordered by Provider. ar2 12:56 Discharge Assessment: Patient awake, alert and oriented x 3. No cognitive and/or jmk functional deficits noted. Patient verbalized understanding of disposition instructions. patient administered narcotics - no. The following High Risk Discharge criteria are identified: None. Discharged to home via wheelchair, with family. Condition: good. Discharge instructions given to patient, Instructed on discharge instructions, follow up and referral plans. medication usage, wound care, Demonstrated understanding of instructions, medications, Pt was receptive of discharge instructions/ teaching. CT Study completed. Property :Personal belongings accompany Pt. 12:57 Patient left the ED. perla Signatures: Sera Gallegos, Blender Laborer Unit deg Mendel Conklin RN RN jmk Robertshaw, Aaron, [place]-Casey PA-Casey ar2 Park Leahy sew MTDD
--- NOTE | 2016-09-08 13:35 | REP ---
CT HEAD WITHOUT CONTRAST: HISTORY: Contusion. COMPARISON: 09/05/2016 Areas of decreased attenuation are present in the periventricular white matter. This represents small vessel ischemic disease. There has been resolution of the previously noted small contusion present in the right parietal lobe at the vertex. There is no new intraparenchymal hemorrhage, mass or midline shift. The ventricular system and cortical sulci are dilated consistent with mild volume loss. There is no extracerebral collection. There is no fracture. IMPRESSION: 1. Small vessel ischemic disease. 2. There has been resolution of the previous noted small right parietal lobe hemorrhagic contusion. 3. Mild volume loss. Signed by Yan Barrett MD 09/08/2016 01:47 P
--- NOTE | 2016-09-10 13:58 | EDDOCDS ---
Nurse's Notes [facility] Name: Rohan Mantilla Age: 75 yrs Sex: Male : 1940 Arrival Date: 09/08/2016 Time: 11:28 Bed I9 / 22 Private MD: Diagnosis: Traumatic hemorrhage of cerebrum, unspecified, without loss of consciousness-right parietal lobe contusion resolved, subsequent visit Presentation: 09/08 11:40 Presenting complaint: Patient states: states recent fall with ER visit. Radiology read jmk = head bleed. here for recheck. This patient has no additional risk factors. Mechanism of Injury: resulted from a fall. Adult Sepsis Screening: The patient does not have new or worsening altered mentation. Patient's respiratory rate is less than 22. Systolic blood pressure is greater than 100. Patient has a qSOFA score of 0- Negative Sepsis Screen. Suicide/Homicide risk assessment- the patient denies having any suicidal and/or homicidal ideations and does not present with any other emotional, behavioral or mental health complaints. Status: Patient is not a creative services coordinator or dependent. Transition of care: patient was not received from another setting of care. 11:40 Acuity: CIARA Level 4 [facility] 11:40 Method Of Arrival: Ambulance [facility] Triage Assessment: 11:45 General: Appears. Pain: Denies pain. [facility] 11:48 Neurological: Level of Consciousness is awake, alert, Oriented to person, place, time, k Coin Box Inspector are equal bilaterally Moves all extremities. Speech is normal, Facial symmetry appears normal, Pupils are PERRLA. EENT: sutured laceration to left ear.. 11:48 Cardiovascular: No deficits noted. Capillary refill < 3 seconds Clubbing of nail beds jmk is absent Heart tones S1 S2 present Edema is absent. Rhythm is irregular. Respiratory: No deficits noted. Airway is patent Respiratory effort is even, unlabored, Respiratory pattern is regular, Breath sounds are clear bilaterally. GI: Abdomen is non- distended obese, Bowel sounds present X 4 quads. Historical: - Allergies: no known allergies; - Home Meds: 1. Abilify 2 mg Oral tab 2 mg daily 2. aspirin 81 mg Oral TbEC 1 tab once daily 3. atorvastatin 40 mg oral tab 1 tab once daily 4. B12 1000mcg 1 tab daily 5. bisoprolol fumarate 5 mg oral tab 0.5 tab once daily 6. bupropion HCl 150 mg Oral TbER 2 tab once daily 7. Drisdol 50,000 unit Oral cap 1 cap once wkly 8. indapamide 1.25 mg Oral tab 1 tab every two days 9. Lantus 100 unit/mL Sub-Q soln 12 unit nightly 10. levothyroxine 50 mcg Oral cap once daily 11. Lofibra 200 mg oral cap 1 cap once daily 12. Mapap (acetaminophen) 325 mg oral tab 2 tabs every 4 hours 13. Milk of Magnesia 400 mg/5 mL Oral susp 30 mL once daily 14. mirtazapine 7.5 mg Oral tab 1 tabs once daily 15. venlafaxine 75 mg oral tab 2 tab 2 times per day 16. Novolin 70/30 [place] 36 units Sub-Q 70-30 unit/mL - PMHx: Anxiety; Atrial Fib; Diabetes; Hypercholesterolemia; Hypertension; Hypothyroidism; kidney disease; - PSHx: Colon Resection; Colostomy Construction; - Social history: Smoking status: Patient states was never smoker of tobacco. No barriers to communication noted, The patient speaks fluent Irish. - Family history: Not pertinent. - : The pt / caregiver states he / she is not on anticoagulants. Home medication list is obtained from the patient. - Exposure Risk Screening:: None identified. Screenin:57 Screening information is obtained from the patient. Fall risk: No risks identified. jmk Assistance ADL's: requires no assistance with activities of daily living. Abuse/DV Screen: The patient / caregiver reports he/she is: not in a situation that causes fear, pain or injury. Nutritional screening: No deficits noted. Advance Directives: Currently, there is a health care proxy, audra mustafa ext [phone]. There is an active DNR order and the pt has a copy here at this time. There is no living will. There is an active Power of Chief Telephone Operator, audra mustafa. home support is adequate. Assessment: 11:56 General: Appears in no apparent distress. Neurological: Level of Consciousness is jmk alert, Oriented to person, place, time, Coin Box Inspector are equal bilaterally Moves all extremities. Speech is normal, Facial symmetry appears normal, Pupils are PERRLA. Cardiovascular: Capillary refill < 3 seconds Clubbing of nail beds is absent Heart tones S1 S2 present. Respiratory: No deficits noted. Airway is patent Respiratory effort is even, unlabored, Respiratory pattern is regular, Breath sounds are clear bilaterally. GI: Abdomen is obese, Bowel sounds present X 4 quads. 12:56 General: dressing change completed to left elbow. Adaptic and kerlex gauze applied. jmk tolerated well. remains neuro intact. Vital Signs: 11:39 BP 151 / 72; Pulse 70; Resp 16; Temp 97.7(O); Pulse Ox 95% on R/A; Weight 97.52 kg; sew Height 5 ft. 8 in. (172.72 cm); Pain 0/10; 12:41 BP 133 / 71; Pulse 63; Resp 16; Temp 97.0(O); Pulse Ox 95% on R/A; Pain 0/10; sew 11:39 Body Mass Index 32.69 (97.52 kg, 172.72 cm) sew Vitals: 11:39 Log In Time N/A - ambulance arrival. sew [place] Coma Score: 11:40 Eye Response: spontaneous(4). Verbal Response: oriented(5). Motor Response: obeys k commands(6). Total: 15. ED Course: 11:29 Patient visited by Sera Gallegos, Technical Training Manager. deg 11:29 Patient moved to Waiting deg 11:29 Patient moved to I9 / 22 deg 11:39 Pt greeted and oriented to ED. Patient advised of names of staff involved in care, sew location of call khan, wait times and NPO status. Accompanied by Family Member, Patient has correct armband on for positive identification. Placed in gown. Bed in low position. Call light in reach. Side rails up X2. Head of bed elevated pt pulled up in bed. Assisted with dressing. Repositioned patient. 11:40 Patient visited by Park Leahy. sew 11:41 Triage Initiated jmk 11:57 The patient / caregiver is instructed regarding the plan of care and ED course. jmk 11:59 Patient visited by Mendel Conklin RN. jmk 12:07 Alberto Black [facility]C [facility]. ar2 12:07 Sylwia Sotomayor MD is Attending Physician. ar2 12:23 Patient visited by Alberto Black PA-C. ar2 12:32 Guille Riley MD is Referral Physician. ar2 12:42 Patient visited by Park Leahy. sew 12:56 No IV's were initiated during this patient's visit. No procedures done that require jmk assistance. 13:50 CT Head Without Contrast Returned. EDMS 14:53 T-Sheet-- Draft Copy was scanned into [employer] and attached to record. gb 14:54 Radiology Report was scanned into [employer] and attached to record. gb Order Results: Radiology Order: CT Head Without Contrast Test: CT Head Without Contrast REASON FOR EXAMINATION: callback for intracranial contusion; CT HEAD WITHOUT CONTRAST:; ; HISTORY: Contusion.; ; COMPARISON: 09/05/2016; ; Areas of decreased attenuation are present in the periventricular white matter.; This represents small vessel ischemic disease. There has been resolution of the; previously noted small contusion present in the right parietal lobe at the; vertex. There is no new intraparenchymal hemorrhage, mass or midline shift. The; ventricular system and cortical sulci are dilated consistent with mild volume; loss. There is no extracerebral collection. There is no fracture.; ; IMPRESSION:; ; 1. Small vessel ischemic disease.; ; 2. There has been resolution of the previous noted small right parietal lobe; hemorrhagic contusion.; ; 3. Mild volume loss.; ; ; Signed by; Yan Barrett MD 09/08/2016 01:47 P; Outcome: 12:34 Discharge ordered by Provider. ar2 12:56 Discharge Assessment: Patient awake, alert and oriented x 3. No cognitive and/or jmk functional deficits noted. Patient verbalized understanding of disposition instructions. patient administered narcotics - no. The following High Risk Discharge criteria are identified: None. Discharged to home via wheelchair, with family. Condition: good. Discharge instructions given to patient, Instructed on discharge instructions, follow up and referral plans. medication usage, wound care, Demonstrated understanding of instructions, medications, Pt was receptive of discharge instructions/ teaching. CT Study completed. Property :Personal belongings accompany Pt. 12:57 Patient left the ED. janek Signatures: Dispatcher [employer] Sera Gagnon, Technical Training Manager Unit deg Mendel Conklin RN RN jmk Barnhardt, Gloria, Reg Reg Alberto Negrete, PAToluC PA-C ar2 Park Leahy sew Chart Complete MTDD
--- NOTE | 2016-09-10 13:58 | EDDOCDS ---
Physician Documentation [facility] Name: Rohan Mantilla Age: 75 yrs Sex: Male : 1940 Arrival Date: 09/08/2016 Time: 11:28 Bed I9 / 22 Private MD: Disposition: 09/08/16 12:34 Discharged to Home/Self Care. Impression: Traumatic hemorrhage of cerebrum, unspecified, without loss of consciousness - right parietal lobe contusion resolved, subsequent visit. - Condition is Stable. - Discharge Instructions: Head Injury, Adult, Sutured Wound Care. - Medication Reconciliation, Local Pharmacy Hours form. - Follow up: Guille Riley MD; When: As previously arranged; Reason: Recheck today's complaints, Continuance of care. - Problem is new. - Symptoms have improved. - Notes: change dressing once daily or more often as needed. have wounds evaluated by your physician tomorrow as scheduled. return to ER if you develop severe headaches or vomiting or signs of infection involving your wounds. Historical: - Allergies: no known allergies; - Home Meds: 1. Abilify 2 mg Oral tab 2 mg daily 2. aspirin 81 mg Oral TbEC 1 tab once daily 3. atorvastatin 40 mg oral tab 1 tab once daily 4. B12 1000mcg 1 tab daily 5. bisoprolol fumarate 5 mg oral tab 0.5 tab once daily 6. bupropion HCl 150 mg Oral TbER 2 tab once daily 7. Drisdol 50,000 unit Oral cap 1 cap once wkly 8. indapamide 1.25 mg Oral tab 1 tab every two days 9. Lantus 100 unit/mL Sub-Q soln 12 unit nightly 10. levothyroxine 50 mcg Oral cap once daily 11. Lofibra 200 mg oral cap 1 cap once daily 12. Mapap (acetaminophen) 325 mg oral tab 2 tabs every 4 hours 13. Milk of Magnesia 400 mg/5 mL Oral susp 30 mL once daily 14. mirtazapine 7.5 mg Oral tab 1 tabs once daily 15. venlafaxine 75 mg oral tab 2 tab 2 times per day 16. Novolin 70/30 [place] 36 units Sub-Q 70-30 unit/mL - PMHx: Anxiety; Atrial Fib; Diabetes; Hypercholesterolemia; Hypertension; Hypothyroidism; kidney disease; - PSHx: Colon Resection; Colostomy Construction; - Social history: Smoking status: Patient states was never smoker of tobacco. No barriers to communication noted, The patient speaks fluent Lebanese. - Family history: Not pertinent. - : The pt / caregiver states he / she is not on anticoagulants. Home medication list is obtained from the patient. - Exposure Risk Screening:: None identified. Vital Signs: 09/08 11:39 BP 151 / 72; Pulse 70; Resp 16; Temp 97.7(O); Pulse Ox 95% on R/A; Weight 97.52 kg / sew 214.99 lbs; Height 5 ft. 8 in. (172.72 cm); Pain 0/10; 12:41 BP 133 / 71; Pulse 63; Resp 16; Temp 97.0(O); Pulse Ox 95% on R/A; Pain 0/10; sew 11:39 Body Mass Index 32.69 (97.52 kg, 172.72 cm) sew [place] Coma Score: 11:40 Eye Response: spontaneous(4). Verbal Response: oriented(5). Motor Response: obeys jmk commands(6). Total: 15. MDM: 11:32 CT Head Without Contrast Ordered. EDMS 12:31 Dressing ordered. ar2 14:53 T-Sheet-- Draft Copy was scanned into [employer] and attached to record. gb 14:54 Radiology Report was scanned into [employer] and attached to record. gb Signatures: Dispatcher [employer] EDMS Mendel Conklin,MICA RN Mary Jane Marino, Reg Reg Alberto Ngerete PA-C PA-C ar2 The chart was reviewed and I authenticate all verbal orders and agree with the evaluation and treatment provided.Attachments: 14:53 T-Sheet-- Draft Copy gb Chart Complete MTDD
--- NOTE | 2016-09-10 13:58 | EDDOCDS ---
Physician Documentation [facility] Name: Rohan Mantilla Age: 75 yrs Sex: Male : 1940 Arrival Date: 09/08/2016 Time: 11:28 Bed I9 / 22 Private MD: Disposition: 09/08/16 12:34 Discharged to Home/Self Care. Impression: Traumatic hemorrhage of cerebrum, unspecified, without loss of consciousness - right parietal lobe contusion resolved, subsequent visit. - Condition is Stable. - Discharge Instructions: Head Injury, Adult, Sutured Wound Care. - Medication Reconciliation, Local Pharmacy Hours form. - Follow up: Guille Riley MD; When: As previously arranged; Reason: Recheck today's complaints, Continuance of care. - Problem is new. - Symptoms have improved. - Notes: change dressing once daily or more often as needed. have wounds evaluated by your physician tomorrow as scheduled. return to ER if you develop severe headaches or vomiting or signs of infection involving your wounds. Historical: - Allergies: no known allergies; - Home Meds: 1. Abilify 2 mg Oral tab 2 mg daily 2. aspirin 81 mg Oral TbEC 1 tab once daily 3. atorvastatin 40 mg oral tab 1 tab once daily 4. B12 1000mcg 1 tab daily 5. bisoprolol fumarate 5 mg oral tab 0.5 tab once daily 6. bupropion HCl 150 mg Oral TbER 2 tab once daily 7. Drisdol 50,000 unit Oral cap 1 cap once wkly 8. indapamide 1.25 mg Oral tab 1 tab every two days 9. Lantus 100 unit/mL Sub-Q soln 12 unit nightly 10. levothyroxine 50 mcg Oral cap once daily 11. Lofibra 200 mg oral cap 1 cap once daily 12. Mapap (acetaminophen) 325 mg oral tab 2 tabs every 4 hours 13. Milk of Magnesia 400 mg/5 mL Oral susp 30 mL once daily 14. mirtazapine 7.5 mg Oral tab 1 tabs once daily 15. venlafaxine 75 mg oral tab 2 tab 2 times per day 16. Novolin 70/30 [place] 36 units Sub-Q 70-30 unit/mL - PMHx: Anxiety; Atrial Fib; Diabetes; Hypercholesterolemia; Hypertension; Hypothyroidism; kidney disease; - PSHx: Colon Resection; Colostomy Construction; - Social history: Smoking status: Patient states was never smoker of tobacco. No barriers to communication noted, The patient speaks fluent Turkish. - Family history: Not pertinent. - : The pt / caregiver states he / she is not on anticoagulants. Home medication list is obtained from the patient. - Exposure Risk Screening:: None identified. Vital Signs: 09/08 11:39 BP 151 / 72; Pulse 70; Resp 16; Temp 97.7(O); Pulse Ox 95% on R/A; Weight 97.52 kg / sew 214.99 lbs; Height 5 ft. 8 in. (172.72 cm); Pain 0/10; 12:41 BP 133 / 71; Pulse 63; Resp 16; Temp 97.0(O); Pulse Ox 95% on R/A; Pain 0/10; sew 11:39 Body Mass Index 32.69 (97.52 kg, 172.72 cm) sew [place] Coma Score: 11:40 Eye Response: spontaneous(4). Verbal Response: oriented(5). Motor Response: obeys jmk commands(6). Total: 15. MDM: 11:32 CT Head Without Contrast Ordered. EDMS 12:31 Dressing ordered. ar2 14:53 T-Sheet-- Draft Copy was scanned into COTA Track and attached to record. gb 14:54 Radiology Report was scanned into COTA Track and attached to record. gb Signatures: Dispatcher [employer] EDMS Mendel Conklin,MICA RN Mary Jane Marino, Reg Reg Alberto Negrete PA-C PA-C ar2 The chart was reviewed and I authenticate all verbal orders and agree with the evaluation and treatment provided.Attachments: 14:53 T-Sheet-- Draft Copy gb Chart Complete MTDD
== END 2016-09-08 12:57 | disposition home or self-care (01) ==
LOC: M ED 11:28
DX: S06.330D Contusion and laceration of cerebrum, unspecified, without loss of consciousness, subsequent encounter (principal); S50.902D Unspecified superficial injury of left elbow, subsequent encounter; W07.XXXD Fall from chair, subsequent encounter; Y92.129 Unspecified place in nursing home as the place of occurrence of the external cause; Y93.89 Activity, other specified; Y99.8 Other external cause status; I73.9 Peripheral vascular disease, unspecified; I48.91 Unspecified atrial fibrillation; E11.22 Type 2 diabetes mellitus with diabetic chronic kidney disease; I12.9 Hypertensive chronic kidney disease with stage 1 through stage 4 chronic kidney disease, or unspecified chronic kidney disease; N18.9 Chronic kidney disease, unspecified; E03.9 Hypothyroidism, unspecified; F41.9 Anxiety disorder, unspecified; Z90.49 Acquired absence of other specified parts of digestive tract; Z79.4 Long term (current) use of insulin; Z79.82 Long term (current) use of aspirin; Z79.899 Other long term (current) drug therapy

== ENCOUNTER → 2016-09-10 | Outpatient (REF) | payer MEDICARE, MEDICAID ==
--- NOTE | 2016-09-10 16:18 | REP ---
Chest one-view HISTORY: Hypoxia Comparison: 07/02/2016 The lungs are clear. The heart is normal in size. The pulmonary vasculature is normal in appearance. Impression: No acute disease. Signed by Yan Barrett MD 09/10/2016 04:09 P
== END ==
PROVIDERS: ATTEND Nurse Practitioner Family
DX: R09.02 Hypoxemia (principal); R05 Cough

== ENCOUNTER → 2016-11-04 | Outpatient (REF) | payer MEDICARE, MEDICAID ==
[2016-11-04 11:10] LABS: MEAN CORPUSCULAR HEMOGLOBIN 30.1 pg (27.0-33.0); MEAN CORPUSCULAR HGB CONC 33.1 g/dl (32.0-36.5); MEAN CORPUSCULAR VOLUME 91.1 fl (80.0-96.0); RED CELL DISTRIBUTION WIDTH 13.7 % (11.5-14.5); WHITE BLOOD COUNT 6.6 K/mm3 (4.0-10.0)
[2016-11-04 11:53] LABS: ALBUMIN 3.3 GM/DL (3.2-5.2); ALBUMIN/GLOBULIN RATIO 1.14 (1.00-1.93); BILIRUBIN,TOTAL 0.5 MG/DL (0.2-1.0); CALCIUM LEVEL 8.4 MG/DL (8.8-10.2); CREATININE FOR GFR 1.99 MG/DL (0.70-1.30); GLOMERULAR FILTRATION RATE 35.2 (>42); POTASSIUM SERUM 3.8 MEQ/L (3.5-5.1); TOTAL PROTEIN 6.2 GM/DL (6.4-8.2)
== END ==
PROVIDERS: ATTEND Nurse Practitioner Family
DX: E03.9 Hypothyroidism, unspecified (principal); E11.9 Type 2 diabetes mellitus without complications

== ENCOUNTER → 2017-01-27 | Outpatient (REF) | payer MEDICARE, MEDICAID | PROVIDERS: ATTEND Nurse Practitioner Family | DX: E03.9 Hypothyroidism, unspecified (principal) ==

== ENCOUNTER → 2017-04-21 | Outpatient (REF) | payer MEDICARE, MEDICAID ==
[~2017-04-21] MED LIST changes: +ABIL1TAB13 PO; -ABIL2TAB2 PO; +ACET1TAB17 PO; +ASPI1TAB15 PO; -ASPI81TA7 PO; -ATOR40TA PO; +ATOR40TA75 PO; +DOXY100T2 PO; -DOXY10CA PO; -LOTR1CRE TOP; +LOTR1CRE11 TOP
[2017-04-21 10:34] LABS: MEAN CORPUSCULAR HEMOGLOBIN 30.3 pg (27.0-33.0); MEAN CORPUSCULAR HGB CONC 33.2 g/dl (32.0-36.5); MEAN CORPUSCULAR VOLUME 91.1 fl (80.0-96.0); WHITE BLOOD COUNT 6.4 K/mm3 (4.0-10.0)
[2017-04-21 11:07] LABS: ALBUMIN 3.3 GM/DL (3.2-5.2); ALBUMIN/GLOBULIN RATIO 1.06 (1.00-1.93); BILIRUBIN,TOTAL 0.4 MG/DL (0.2-1.0); CALCIUM LEVEL 8.5 MG/DL (8.8-10.2); CREATININE FOR GFR 1.73 MG/DL (0.70-1.30); GLOMERULAR FILTRATION RATE 41.3 (>42); POTASSIUM SERUM 4.2 MEQ/L (3.5-5.1); TOTAL PROTEIN 6.4 GM/DL (6.4-8.2)
== END ==
PROVIDERS: ATTEND Nurse Practitioner Family
DX: E03.9 Hypothyroidism, unspecified (principal); E11.9 Type 2 diabetes mellitus without complications; I50.9 Heart failure, unspecified

== ENCOUNTER → 2017-09-26 | Outpatient (REF) | payer MEDICARE, MEDICAID | DX: D51.0 Vitamin B12 deficiency anemia due to intrinsic factor deficiency (principal); F02.80 Dementia in other diseases classified elsewhere, unspecified severity, without behavioral disturbance, psychotic disturbance, mood disturbance, and anxiety; F32.9 Major depressive disorder, single episode, unspecified; J44.9 Chronic obstructive pulmonary disease, unspecified; N18.3 Chronic kidney disease, stage 3 (moderate); R55 Syncope and collapse; E03.9 Hypothyroidism, unspecified; E78.5 Hyperlipidemia, unspecified; F03.90 Unspecified dementia, unspecified severity, without behavioral disturbance, psychotic disturbance, mood disturbance, and anxiety; F41.1 Generalized anxiety disorder; N18.9 Chronic kidney disease, unspecified; I48.0 Paroxysmal atrial fibrillation; Z91.81 History of falling | CPT/HCPCS: 87507 ==

== ENCOUNTER → 2017-10-06 | Outpatient (REF) | payer MEDICARE, MEDICAID ==
[2017-10-06 10:13] LABS: HEMATOCRIT 45.8 % (42.0-52.0); HEMOGLOBIN 14.8 g/dl (14.0-18.0); MEAN CORPUSCULAR HEMOGLOBIN 29.2 pg (27.0-33.0); MEAN CORPUSCULAR HGB CONC 32.3 g/dl (32.0-36.5); MEAN CORPUSCULAR VOLUME 90.5 fl (80.0-96.0); PLATELET COUNT, AUTOMATED 282 10^3/uL (150-450); RED BLOOD COUNT 5.06 10^6/uL (4.30-6.10); RED CELL DISTRIBUTION WIDTH 13.6 % (11.5-14.5); WHITE BLOOD COUNT 8.9 10^3/uL (4.0-10.0)
[2017-10-06 10:20] LABS: SUSPECT SAMPLE POS FLAG
[2017-10-06 10:25] LABS: ALBUMIN 3.7 GM/DL (3.2-5.2); ALBUMIN/GLOBULIN RATIO 1.09 (1.00-1.93); ALKALINE PHOSPHATASE 47 U/L (45-117); ALT/SGPT 26 U/L (12-78); ANION GAP 10 MEQ/L (8-16); AST/SGOT 22 U/L (7-37); BILIRUBIN,TOTAL 0.4 MG/DL (0.2-1.0); BLOOD UREA NITROGEN 22 MG/DL (7-18); CALCIUM LEVEL 8.6 MG/DL (8.8-10.2); CARBON DIOXIDE LEVEL 27 MEQ/L (21-32); CHLORIDE LEVEL 101 MEQ/L (98-107); CREATININE FOR GFR 1.92 MG/DL (0.70-1.30); GLOMERULAR FILTRATION RATE 36.6 (>42); GLUCOSE, FASTING 162 MG/DL (70-100); POTASSIUM SERUM 4.2 MEQ/L (3.5-5.1); SODIUM LEVEL 138 MEQ/L (136-145); TOTAL PROTEIN 7.1 GM/DL (6.4-8.2)
[2017-10-10 00:06] LABS: HALOPERIDOL (HALDOL) LEVEL None Detected ng/mL (1-10)
== END ==
DX: F25.9 Schizoaffective disorder, unspecified (principal)
CPT/HCPCS: 80053

== ENCOUNTER 2018-04-11 16:13 | Inpatient (IN) | payer MEDICARE, MEDICAID ==
[2018-04-11 17:09] LABS: BASO # 0.1 10^3/uL (0.0-0.2); BASO % 0.6 % (0.0-1.0); EOS # 0.1 10^3/uL (0.0-0.50); EOS % 0.9 % (0.0-3.0); HEMATOCRIT 47.4 % (42.0-52.0); HEMOGLOBIN 15.7 g/dl (13.5-17.5); IMMATURE GRANULOCYTE % 0.8 % (0-3.0); LYMPH # 0.9 10^3/uL (1.5-4.5); LYMPH % 8.1 % (24.0-44.0); MEAN CORPUSCULAR HEMOGLOBIN 29.9 pg (27.0-33.0); MEAN CORPUSCULAR HGB CONC 33.1 g/dl (32.0-36.5); MEAN CORPUSCULAR VOLUME 90.3 fl (80.0-96.0); MONO # 0.5 10^3/uL (0.0-0.8); MONO % 4.4 % (0.0-5.0); NEUTROPHILS # 9.2 10^3/uL (1.8-7.7); NEUTROPHILS % 85.2 % (36.0-66.0); PLATELET COUNT, AUTOMATED 285 10^3/uL (150-450); RED BLOOD COUNT 5.25 10^6/uL (4.30-6.10); RED CELL DISTRIBUTION WIDTH 13.5 % (11.5-14.5); WHITE BLOOD COUNT 10.8 10^3/uL (4.0-10.0)
[2018-04-11] MEDS: ONDANSETRON 4MG/2ML VIAL (J2405) IV (17:13)
[2018-04-11] MEDS: NS 1,000 ML IV (17:13)
[2018-04-11 17:44] LABS: ALBUMIN 3.5 GM/DL (3.2-5.2); ALBUMIN/GLOBULIN RATIO 0.83 (1.00-1.93); ALKALINE PHOSPHATASE 49 U/L (45-117); ALT/SGPT 31 U/L (12-78); ANION GAP 9 MEQ/L (8-16); AST/SGOT 20 U/L (7-37); BILIRUBIN,DIRECT 0.2 MG/DL (0.0-0.2); BILIRUBIN,TOTAL 0.5 MG/DL (0.2-1.0); BLOOD UREA NITROGEN 27 MG/DL (7-18); CALCIUM LEVEL 9.4 MG/DL (8.8-10.2); CARBON DIOXIDE LEVEL 29 MEQ/L (21-32); CHLORIDE LEVEL 101 MEQ/L (98-107); CPK CREATINE PHOSPHOKINASE 77 U/L (39-308); GLUCOSE, FASTING 239 MG/DL (70-100); LIPASE 156 U/L (73-393); POTASSIUM SERUM 3.7 MEQ/L (3.5-5.1); SODIUM LEVEL 139 MEQ/L (136-145); TOTAL PROTEIN 7.7 GM/DL (6.4-8.2); TROPONIN I < 0.02 NG/ML (< 0.10)
[2018-04-11 17:45] LABS: CK-MB VALUE MASS < 1.0 NG/ML (<3.6); MB/CK RELATIVE INDEX 1.29 (< OR =4)
[2018-04-11] MEDS: METOCLOPRAMIDE INJ 10MG/2ML VIAL (J2765) IV (19:36)
[2018-04-11] MEDS ORDERED: GLUCAGON FOR INJ 1 MG VIAL (J1610) SC (20:45)
[2018-04-11] MEDS ORDERED: ACETAMINOPHEN TAB 650MG DOSE (2X325MG) PO (20:45)
[2018-04-11] MEDS ORDERED: GLUCOSE 4 GM CHEW TABLET PO (20:45)
[2018-04-11] MEDS ORDERED: ONDANSETRON 4MG/2ML VIAL (J2405) IV (20:45)
[2018-04-11] MEDS ORDERED: MORPHINE 4 MG/ML 1ML VIAL/SYRINGE (J2270) IV (20:45)
[2018-04-11] MEDS ORDERED: DEXTROSE 50% 50 ML SYRINGE IV (20:45)
[2018-04-12 01:06] LABS: BEDSIDE GLUCOSE 260 MG/DL (83-110)
[2018-04-12] MEDS: ATORVASTATIN 20 MG TAB PO ×2 (01:42→21:59)
[2018-04-12] MEDS: KCL 20MEQ IN D5/0.45NS 1000ML 1,000 ML IV ×3 (01:42→21:47)
[2018-04-12] MEDS: PIPERACILLIN/TAZOBACTAM SOD 3.375 GM in D5W MINI-BAG PLUS 50 ML IV ×5 (01:42→21:47)
[2018-04-12] MEDS: HumaLOG INSULIN (NovoLOG) PER UNIT SC ×4 (01:43→17:38)
[2018-04-12] MEDS: HEPARIN SOD (PORCINE) 5000 UNITS/ML VIAL SC ×4 (01:43→21:57)
[2018-04-12] MEDS: VENLAFAXINE 37.5 MG TAB PO ×3 (01:44→21:52)
[2018-04-12] MEDS: MIRTAZAPINE 7.5MG PER 1/2 TABLET PO ×2 (01:44→21:50)
[2018-04-12 04:40] LABS: HEMATOCRIT 44.3 % (42.0-52.0); HEMOGLOBIN 14.9 g/dl (13.5-17.5); MEAN CORPUSCULAR HEMOGLOBIN 29.8 pg (27.0-33.0); MEAN CORPUSCULAR HGB CONC 33.6 g/dl (32.0-36.5); MEAN CORPUSCULAR VOLUME 88.6 fl (80.0-96.0); PLATELET COUNT, AUTOMATED 277 10^3/uL (150-450); RED CELL DISTRIBUTION WIDTH 13.6 % (11.5-14.5); WHITE BLOOD COUNT 11.8 10^3/uL (4.0-10.0)
[2018-04-12 04:56] LABS: ANION GAP 11 MEQ/L (8-16); BLOOD UREA NITROGEN 28 MG/DL (7-18); CALCIUM LEVEL 9.7 MG/DL (8.8-10.2); CARBON DIOXIDE LEVEL 28 MEQ/L (21-32); CHLORIDE LEVEL 103 MEQ/L (98-107); CREATININE FOR GFR 2.07 MG/DL (0.70-1.30); GLOMERULAR FILTRATION RATE 33.5 (>42); GLUCOSE, FASTING 209 MG/DL (70-100); POTASSIUM SERUM 3.5 MEQ/L (3.5-5.1); SODIUM LEVEL 142 MEQ/L (136-145)
[2018-04-12] MEDS: LEVOTHYROXINE 100MCG TABLET (0.1MG) PO (05:34)
[2018-04-12] MEDS: buPROPion **XL** TABLET 150MG (WELLBUTRIN XL) PO (09:43)
[2018-04-12] MEDS: ARIPiprazole 2 MG TAB PO (09:43)
[2018-04-12] MEDS: BISOPROLOL FUMARATE 5 MG TAB PO (09:44)
[2018-04-12] MEDS: PANTOPRAZOLE 40MG INJ (PROTONIX) (C9113) IV (09:44)
[2018-04-12 10:07] LABS: CPK CREATINE PHOSPHOKINASE 207 U/L (39-308); TROPONIN I < 0.02 NG/ML (< 0.10)
[2018-04-12 10:08] LABS: CK-MB VALUE MASS 1.1 NG/ML (<3.6); MB/CK RELATIVE INDEX 0.53 (< OR =4)
[2018-04-12 11:45] LABS: BEDSIDE GLUCOSE 258 MG/DL (83-110)
[2018-04-12 17:14] LABS: BEDSIDE GLUCOSE 234 MG/DL (83-110)
[2018-04-12] MEDS: LEVEMIR (INSULIN DETEMIR) 1 UNITS/0.01ML SC (21:50)
[2018-04-13 00:10] LABS: BEDSIDE GLUCOSE 241 MG/DL (83-110)
[2018-04-13] MEDS: HumaLOG INSULIN (NovoLOG) PER UNIT SC ×5 (00:29→23:55)
[2018-04-13] MEDS: PIPERACILLIN/TAZOBACTAM SOD 3.375 GM in D5W MINI-BAG PLUS 50 ML IV ×4 (04:28→21:28)
[2018-04-13 06:13] LABS: BEDSIDE GLUCOSE 151 MG/DL (83-110)
[2018-04-13] MEDS: LEVOTHYROXINE 100MCG TABLET (0.1MG) PO (06:25)
[2018-04-13] MEDS: HEPARIN SOD (PORCINE) 5000 UNITS/ML VIAL SC ×3 (06:30→21:28)
[2018-04-13 07:04] LABS: HEMATOCRIT 40.2 % (42.0-52.0); MEAN CORPUSCULAR HEMOGLOBIN 29.4 pg (27.0-33.0); MEAN CORPUSCULAR HGB CONC 32.3 g/dl (32.0-36.5); PLATELET COUNT, AUTOMATED 238 10^3/uL (150-450); RED BLOOD COUNT 4.42 10^6/uL (4.30-6.10); RED CELL DISTRIBUTION WIDTH 13.6 % (11.5-14.5)
[2018-04-13 07:10] LABS: ANION GAP 8 MEQ/L (8-16); BLOOD UREA NITROGEN 23 MG/DL (7-18); CALCIUM LEVEL 8.6 MG/DL (8.8-10.2); CARBON DIOXIDE LEVEL 29 MEQ/L (21-32); CHLORIDE LEVEL 104 MEQ/L (98-107); CREATININE FOR GFR 2.13 MG/DL (0.70-1.30); GLOMERULAR FILTRATION RATE 32.4 (>42); GLUCOSE, FASTING 178 MG/DL (70-100); POTASSIUM SERUM 3.4 MEQ/L (3.5-5.1); SODIUM LEVEL 141 MEQ/L (136-145)
[2018-04-13] MEDS: KCL 20MEQ IN D5/0.45NS 1000ML 1,000 ML IV ×3 (08:26→19:05)
[2018-04-13] MEDS: PANTOPRAZOLE 40MG INJ (PROTONIX) (C9113) IV (08:26)
[2018-04-13] MEDS: buPROPion **XL** TABLET 150MG (WELLBUTRIN XL) PO (08:28)
[2018-04-13] MEDS: VENLAFAXINE 37.5 MG TAB PO ×2 (08:28→21:29)
[2018-04-13] MEDS: ARIPiprazole 2 MG TAB PO (08:28)
[2018-04-13] MEDS: BISOPROLOL FUMARATE 5 MG TAB PO (08:28)
[2018-04-13] MEDS: INDAPAMIDE 1.25MG TABLET PO (08:29)
[2018-04-13] MEDS: POTASSIUM CHLORIDE 10 MEQ SR TABLET PO (09:05)
[2018-04-13 11:50] LABS: BEDSIDE GLUCOSE 257 MG/DL (83-110)
[2018-04-13 18:28] LABS: BEDSIDE GLUCOSE 165 MG/DL (83-110)
[2018-04-13] MEDS: ATORVASTATIN 20 MG TAB PO (21:29)
[2018-04-13] MEDS: LEVEMIR (INSULIN DETEMIR) 1 UNITS/0.01ML SC (21:29)
[2018-04-13] MEDS: MIRTAZAPINE 7.5MG PER 1/2 TABLET PO (21:29)
[2018-04-13 21:43] LABS: BEDSIDE GLUCOSE 136 MG/DL (83-110)
[2018-04-13 23:47] LABS: BEDSIDE GLUCOSE 111 MG/DL (83-110)
[2018-04-14] MEDS: KCL 20MEQ IN D5/0.45NS 1000ML 1,000 ML IV (03:49)
[2018-04-14] MEDS: PIPERACILLIN/TAZOBACTAM SOD 3.375 GM in D5W MINI-BAG PLUS 50 ML IV ×2 (03:49→09:49)
[2018-04-14 05:49] LABS: BEDSIDE GLUCOSE 141 MG/DL (83-110)
[2018-04-14] MEDS: HumaLOG INSULIN (NovoLOG) PER UNIT SC ×4 (06:19→21:00)
[2018-04-14] MEDS: HEPARIN SOD (PORCINE) 5000 UNITS/ML VIAL SC ×3 (06:20→21:30)
[2018-04-14] MEDS: LEVOTHYROXINE 100MCG TABLET (0.1MG) PO (06:20)
[2018-04-14 08:19] LABS: HEMATOCRIT 40.9 % (42.0-52.0); HEMOGLOBIN 13.2 g/dl (13.5-17.5); MEAN CORPUSCULAR HEMOGLOBIN 29.6 pg (27.0-33.0); MEAN CORPUSCULAR HGB CONC 32.3 g/dl (32.0-36.5); MEAN CORPUSCULAR VOLUME 91.7 fl (80.0-96.0); PLATELET COUNT, AUTOMATED 218 10^3/uL (150-450); RED BLOOD COUNT 4.46 10^6/uL (4.30-6.10); RED CELL DISTRIBUTION WIDTH 13.4 % (11.5-14.5)
[2018-04-14 08:39] LABS: ANION GAP 10 MEQ/L (8-16); BLOOD UREA NITROGEN 15 MG/DL (7-18); CALCIUM LEVEL 8.5 MG/DL (8.8-10.2); CARBON DIOXIDE LEVEL 26 MEQ/L (21-32); CHLORIDE LEVEL 106 MEQ/L (98-107); CREATININE FOR GFR 1.89 MG/DL (0.70-1.30); GLOMERULAR FILTRATION RATE 37.2 (>42); GLUCOSE, FASTING 139 MG/DL (70-100); POTASSIUM SERUM 3.7 MEQ/L (3.5-5.1); SODIUM LEVEL 142 MEQ/L (136-145)
[2018-04-14 09:05] LABS: MAGNESIUM LEVEL 2.1 MG/DL (1.8-2.4)
[2018-04-14] MEDS: PANTOPRAZOLE 40MG INJ (PROTONIX) (C9113) IV (09:49)
[2018-04-14] MEDS: VENLAFAXINE 37.5 MG TAB PO ×2 (09:50→21:29)
[2018-04-14] MEDS: buPROPion **XL** TABLET 150MG (WELLBUTRIN XL) PO (09:50)
[2018-04-14] MEDS: BISOPROLOL FUMARATE 5 MG TAB PO (09:53)
[2018-04-14] MEDS: ARIPiprazole 2 MG TAB PO (10:05)
[2018-04-14 12:01] LABS: BEDSIDE GLUCOSE 175 MG/DL (83-110)
[2018-04-14 17:02] LABS: BEDSIDE GLUCOSE 270 MG/DL (83-110)
[2018-04-14 21:03] LABS: BEDSIDE GLUCOSE 141 MG/DL (83-110)
[2018-04-14] MEDS: LEVEMIR (INSULIN DETEMIR) 1 UNITS/0.01ML SC (21:29)
[2018-04-14] MEDS: ATORVASTATIN 20 MG TAB PO (21:29)
[2018-04-14] MEDS: MIRTAZAPINE 7.5MG PER 1/2 TABLET PO (21:29)
[2018-04-15] MEDS: LEVOTHYROXINE 100MCG TABLET (0.1MG) PO (06:23)
[2018-04-15] MEDS: HEPARIN SOD (PORCINE) 5000 UNITS/ML VIAL SC (06:23)
[2018-04-15 06:46] LABS: HEMATOCRIT 42.3 % (42.0-52.0); HEMOGLOBIN 13.9 g/dl (13.5-17.5); MEAN CORPUSCULAR HEMOGLOBIN 29.7 pg (27.0-33.0); MEAN CORPUSCULAR HGB CONC 32.9 g/dl (32.0-36.5); MEAN CORPUSCULAR VOLUME 90.4 fl (80.0-96.0); PLATELET COUNT, AUTOMATED 230 10^3/uL (150-450); RED BLOOD COUNT 4.68 10^6/uL (4.30-6.10); RED CELL DISTRIBUTION WIDTH 13.3 % (11.5-14.5)
[2018-04-15 07:06] LABS: ANION GAP 11 MEQ/L (8-16); BLOOD UREA NITROGEN 17 MG/DL (7-18); CALCIUM LEVEL 8.3 MG/DL (8.8-10.2); CARBON DIOXIDE LEVEL 23 MEQ/L (21-32); CHLORIDE LEVEL 106 MEQ/L (98-107); CREATININE FOR GFR 1.93 MG/DL (0.70-1.30); GLOMERULAR FILTRATION RATE 36.3 (>42); GLUCOSE, FASTING 234 MG/DL (70-100); POTASSIUM SERUM 3.9 MEQ/L (3.5-5.1); SODIUM LEVEL 140 MEQ/L (136-145)
[2018-04-15] MEDS: ARIPiprazole 2 MG TAB PO (08:39)
[2018-04-15] MEDS: buPROPion **XL** TABLET 150MG (WELLBUTRIN XL) PO (08:39)
[2018-04-15] MEDS: HumaLOG INSULIN (NovoLOG) PER UNIT SC (08:39)
[2018-04-15] MEDS: BISOPROLOL FUMARATE 5 MG TAB PO (08:39)
[2018-04-15] MEDS: VENLAFAXINE 37.5 MG TAB PO (08:40)
[2018-04-15] MEDS: PANTOPRAZOLE 40MG INJ (PROTONIX) (C9113) IV (08:40)
== END 2018-04-15 11:30 | DRG 389 ==
LOC: M MS5PR 04-12 00:14 → M ED 16:13 → M ED INP 21:39
DX: K56.50 Intestinal adhesions [bands], unspecified as to partial versus complete obstruction (principal); N18.4 Chronic kidney disease, stage 4 (severe); K43.0 Incisional hernia with obstruction, without gangrene; I48.0 Paroxysmal atrial fibrillation; F03.90 Unspecified dementia, unspecified severity, without behavioral disturbance, psychotic disturbance, mood disturbance, and anxiety; E03.9 Hypothyroidism, unspecified; E78.5 Hyperlipidemia, unspecified; E11.9 Type 2 diabetes mellitus without complications; I12.9 Hypertensive chronic kidney disease with stage 1 through stage 4 chronic kidney disease, or unspecified chronic kidney disease; F41.9 Anxiety disorder, unspecified; Z79.899 Other long term (current) drug therapy

== ENCOUNTER → 2018-09-21 | Outpatient (REF) | payer MEDICARE, MEDICAID ==
[~2018-09-21] MED LIST changes: -ACET1TAB17 PO; +ACET1TAB55 PO; -DRIS50002 PO; +DRIS50003 PO; +FENO200C PO; -LOTR1CRE11 TOP; +LOTR1CRE12 TOP; +SYNT100T PO
[2018-09-21 10:29] LABS: HEMATOCRIT 46.7 % (42.0-52.0); HEMOGLOBIN 15.3 g/dl (13.5-17.5); MEAN CORPUSCULAR HEMOGLOBIN 30.2 pg (27.0-33.0); MEAN CORPUSCULAR HGB CONC 32.8 g/dl (32.0-36.5); MEAN CORPUSCULAR VOLUME 92.3 fl (80.0-96.0); PLATELET COUNT, AUTOMATED 296 10^3/uL (150-450); RED BLOOD COUNT 5.06 10^6/uL (4.30-6.10)
[2018-09-21 11:00] LABS: ALBUMIN 3.8 GM/DL (3.2-5.2); BILIRUBIN,TOTAL 0.5 MG/DL (0.2-1.0); CALCIUM LEVEL 8.7 MG/DL (8.8-10.2); CHOLESTEROL RISK RATIO 3.526 (<5); CREATININE FOR GFR 1.77 MG/DL (0.70-1.30); GLOMERULAR FILTRATION RATE 40.1 (>42); THYROID STIMULATING HORMONE 10.1 uIU/ML (0.358-3.740); TOTAL PROTEIN 7.2 GM/DL (6.4-8.2)
[2018-09-21 11:28] LABS: HEMOGLOBIN A1c 9.9 %
== END ==
PROVIDERS: ATTEND Nurse Practitioner Family
DX: E03.9 Hypothyroidism, unspecified (principal); I10 Essential (primary) hypertension; E11.9 Type 2 diabetes mellitus without complications

== ENCOUNTER → 2018-12-17 | Outpatient (REF) | payer MEDICARE, MEDICAID ==
[~2018-12-17] MED LIST changes: +GLUC1VIA2 SC; -GLUC1VL SC; -GLUC4GMTAB OR; +LEAD1CHW OR
[2018-12-17 15:20] LABS: INFLUENZA A AMPLIFICATION NEGATIVE (NEGATIVE); INFLUENZA B AMPLIFICATION NEGATIVE (NEGATIVE)
== END ==
LOC: M LAB REF 12:46
PROVIDERS: ATTEND Internal Medicine
DX: J44.1 Chronic obstructive pulmonary disease with (acute) exacerbation (principal); R50.9 Fever, unspecified

== ENCOUNTER → 2019-02-23 | Outpatient (REF) | payer MEDICARE, MEDICAID ==
[~2019-02-23] MED LIST changes: +CYAN100049 PO; -VITA10002 PO
[2019-02-23 10:02] LABS: CALCIUM LEVEL 8.9 MG/DL (8.8-10.2); CHOLESTEROL RISK RATIO 3.255 (<5); CREATININE FOR GFR 1.88 MG/DL (0.70-1.30); GLOMERULAR FILTRATION RATE 37.3 (>42); POTASSIUM SERUM 3.9 MEQ/L (3.5-5.1); THYROID STIMULATING HORMONE 8.01 uIU/ML (0.358-3.740); TOTAL 25(OH) VITAMIN D 51.8 NG/ML (30.0-100.0)
[2019-02-23 10:22] LABS: HEMOGLOBIN A1c 9.7 %
== END ==
PROVIDERS: ATTEND Internal Medicine
DX: E78.00 Pure hypercholesterolemia, unspecified (principal); I10 Essential (primary) hypertension; E11.9 Type 2 diabetes mellitus without complications; E03.9 Hypothyroidism, unspecified; E56.9 Vitamin deficiency, unspecified; Z79.899 Other long term (current) drug therapy

== ENCOUNTER → 2019-07-04 | Outpatient (REF) | payer MEDICARE, MEDICAID ==
[~2019-07-04] MED LIST changes: +BISO5TAB9 PO
== END ==
LOC: M LAB REF 18:29
PROVIDERS: ATTEND Internal Medicine
DX: E11.40 Type 2 diabetes mellitus with diabetic neuropathy, unspecified (principal); N18.3 Chronic kidney disease, stage 3 (moderate)

== ENCOUNTER → 2019-07-22 | Outpatient (REF) | payer MEDICARE, MEDICAID | PROVIDERS: ATTEND Registered Nurse | DX: Z53.9 Procedure and treatment not carried out, unspecified reason (principal) ==

== ENCOUNTER → 2019-07-24 | Outpatient (REF) | payer MEDICARE, MEDICAID ==
[2019-07-25 11:03] LABS: APPEARANCE, URINE CLOUDY (CLEAR); BACTERIA, URINE AUTO 1+ (NEGATIVE); BILIRUBIN, URINE AUTO NEGATIVE (NEGATIVE); BLOOD, URINE BLOOD 1+ (NEGATIVE); COLOR, URINE YELLOW (YELLOW); GLUCOSE, URINE (UA) AUTO 1+ mg/dL (NEGATIVE); KETONE, URINE AUTO NEGATIVE (NEGATIVE); LEUKOCYTE ESTERASE, URINE AUTO 3+ (NEGATIVE); NITRITE, URINE AUTO NEGATIVE (NEGATIVE); PROTEIN, URINE AUTO 2+ mg/dL (NEGATIVE); RBC, URINE AUTO 7 /HPF (0-3); SPECIFIC GRAVITY URINE AUTO 1.012 (1.002-1.035); SQUAMOUS EPITHELIAL CELL UR AU 0 /HPF (0-6); UROBILINOGEN, URINE AUTO 0.2 mg/dL (0.0-2.0); WBC, URINE AUTO TNTC /HPF (0-3)
== END ==
LOC: M LAB REF 10:42
PROVIDERS: ATTEND Registered Nurse
DX: R30.0 Dysuria (principal)

== ENCOUNTER → 2019-08-23 | Outpatient (REF) | payer MEDICARE, MEDICAID, OTHER ==
[2019-08-23 12:49] LABS: BILIRUBIN,TOTAL 0.4 MG/DL (0.2-1.0); CALCIUM LEVEL 8.6 MG/DL (8.8-10.2); CREATININE FOR GFR 1.88 MG/DL (0.70-1.30); GLOMERULAR FILTRATION RATE 37.3 (>42); POTASSIUM SERUM 4.4 MEQ/L (3.5-5.1); TOTAL PROTEIN 6.4 GM/DL (6.4-8.2)
== END ==
PROVIDERS: ATTEND Urology
DX: N40.1 Benign prostatic hyperplasia with lower urinary tract symptoms (principal); R33.9 Retention of urine, unspecified
CPT/HCPCS: 36415; 80053; G0103

== ENCOUNTER → 2019-08-30 | Outpatient (CLI) | payer MEDICARE, MEDICAID ==
--- NOTE | 2019-08-30 13:36 | REP ---
CT abdomen and pelvis without IV or oral contrast: History: Urinary retention. Comparison CT study April 11, 2018. CT findings. Preliminary digital glove brusher radiograph shows calcification of the right upper quadrant consistent with gallstones. Bowel gas pattern is unremarkable. No infiltrate or effusion is seen in the lung bases. No focal liver lesion is seen. Spleen is unremarkable. CT axial images demonstrate two large peripherally calcified gallstones in the gallbladder unchanged from the prior study. There is some vascular calcification along the body of the pancreas. No other pancreatic abnormality is noted. There are low-density lesions in the right kidney consistent with cysts unchanged. No retroperitoneal mass or adenopathy is seen. Large and small bowel loops are unremarkable in the upper abdomen. There is a ventral hernia in the epigastric region transmitting a small quantity of abdominal fat. Some anterior abdominal wall calcification is observed in the umbilical region. There is a peripherally calcified lesion in the retropubic space unchanged from the prior study. This measures 3.2 cm right to left by 3.0 cm anterior to posterior by 4.7 cm craniocaudal. Suture line is visible in the left lower quadrant in what appears to be a small bowel loop. There is a colostomy in the left lower quadrant again noted. Seminal vesicles and prostate are unremarkable. There is bladder wall thickening in the anterior half of the urinary bladder moderate in degree. This appears to be a new finding. No focal mass lesion is observed in the bladder. No pelvic adenopathy is seen. Extensive vascular calcification is noted. Impression: Cholelithiasis. Right renal cysts without hydronephrosis. Postoperative changes in the abdominal wall including a small ventral hernia transmitting fat and a stable peripherally calcified nodule in the retropubic space. There is diffuse moderate thickening of the urinary bladder wall visible today. There is a left lower quadrant colostomy again noted. Electronically Signed by Tamir López MD 08/30/2019 06:19 P
== END ==
LOC: M RAD 12:11
PROVIDERS: ATTEND Urology
DX: R33.9 Retention of urine, unspecified (principal); N40.1 Benign prostatic hyperplasia with lower urinary tract symptoms; R31.29 Other microscopic hematuria

== ENCOUNTER → 2019-11-24 | Outpatient (REF) | payer MEDICARE, MEDICAID ==
[~2019-11-24] MED LIST changes: +BISO5TAB14 PO; -BISO5TAB9 PO
[2019-11-24 12:52] LABS: BASO # 0.1 10^3/uL (0.0-0.2); BASO % 0.7 % (0.0-1.0); EOS # 0.3 10^3/uL (0.0-0.5); EOS % 3.8 % (0.0-3.0); HEMATOCRIT 46.1 % (42.0-52.0); HEMOGLOBIN 14.8 g/dl (13.5-17.5); LYMPH # 1.5 10^3/uL (1.5-5.0); LYMPH % 20.3 % (24.0-44.0); MEAN CORPUSCULAR HEMOGLOBIN 29.5 pg (27.0-33.0); MEAN CORPUSCULAR HGB CONC 32.1 g/dl (32.0-36.5); MONO # 0.6 10^3/uL (0.0-0.8); MONO % 7.5 % (0.0-5.0); NEUTROPHILS # 4.9 10^3/uL (1.5-8.5); NEUTROPHILS % 67.3 % (36.0-66.0); PLATELET COUNT, AUTOMATED 272 10^3/uL (150-450); RED BLOOD COUNT 5.01 10^6/uL (4.30-6.10); WHITE BLOOD COUNT 7.3 10^3/uL (4.0-10.0)
[2019-11-24 13:19] LABS: HEMOGLOBIN A1c 8.6 %
[2019-11-24 13:28] LABS: ALBUMIN 3.1 GM/DL (3.2-5.2); BILIRUBIN,TOTAL 0.4 MG/DL (0.2-1.0); CREATININE FOR GFR 1.86 MG/DL (0.70-1.30); GLOMERULAR FILTRATION RATE 37.7 (>42); POTASSIUM SERUM 4.1 MEQ/L (3.5-5.1); THYROID STIMULATING HORMONE 1.58 uIU/ML (0.358-3.740); TOTAL PROTEIN 6.6 GM/DL (6.4-8.2)
== END ==
PROVIDERS: ATTEND Internal Medicine
DX: N18.9 Chronic kidney disease, unspecified (principal); E11.9 Type 2 diabetes mellitus without complications; Z79.899 Other long term (current) drug therapy

== ENCOUNTER → 2020-05-22 | Outpatient (REF) | payer MEDICARE, MEDICAID ==
[~2020-05-22] MED LIST changes: +ASPI-546 PO; -ASPI1TAB15 PO
[2020-05-22 10:46] LABS: HEMATOCRIT 43.2 % (42.0-52.0); HEMOGLOBIN 13.7 g/dl (13.5-17.5); MEAN CORPUSCULAR HEMOGLOBIN 29.5 pg (27.0-33.0); MEAN CORPUSCULAR HGB CONC 31.7 g/dl (32.0-36.5); MEAN CORPUSCULAR VOLUME 93.1 fl (80.0-96.0); PLATELET COUNT, AUTOMATED 248 10^3/uL (150-450); RED BLOOD COUNT 4.64 10^6/uL (4.30-6.10); WHITE BLOOD COUNT 8.7 10^3/uL (4.0-10.0)
[2020-05-22 11:06] LABS: HEMOGLOBIN A1c 7.2 %
[2020-05-22 11:09] LABS: ALBUMIN 2.6 GM/DL (3.2-5.2); BILIRUBIN,TOTAL 0.4 MG/DL (0.2-1.0); CALCIUM LEVEL 8.3 MG/DL (8.8-10.2); CHOLESTEROL RISK RATIO 3.967 (<5); CREATININE FOR GFR 1.41 MG/DL (0.70-1.30); GLOMERULAR FILTRATION RATE 51.9 (>42); MAGNESIUM LEVEL 1.9 MG/DL (1.8-2.4); POTASSIUM SERUM 4.1 MEQ/L (3.5-5.1); THYROID STIMULATING HORMONE 1.46 uIU/ML (0.358-3.740)
== END ==
PROVIDERS: ATTEND Internal Medicine
DX: N18.9 Chronic kidney disease, unspecified (principal); E11.9 Type 2 diabetes mellitus without complications; Z79.899 Other long term (current) drug therapy

== ENCOUNTER → 2020-06-13 | Outpatient (REF) | payer MEDICARE, MEDICAID ==
[2020-06-13 15:40] LABS: APPEARANCE, URINE CLOUDY (CLEAR); BACTERIA, URINE AUTO NEGATIVE (NEGATIVE); BILIRUBIN, URINE AUTO NEGATIVE (NEGATIVE); BLOOD, URINE BLOOD 2+ (NEGATIVE); COLOR, URINE YELLOW (YELLOW); GLUCOSE, URINE (UA) AUTO 2+ mg/dL (NEGATIVE); KETONE, URINE AUTO NEGATIVE (NEGATIVE); LEUKOCYTE ESTERASE, URINE AUTO 3+ (NEGATIVE); NITRITE, URINE AUTO NEGATIVE (NEGATIVE); PROTEIN, URINE AUTO 2+ mg/dL (NEGATIVE); RBC, URINE AUTO 49 /HPF (0-3); SPECIFIC GRAVITY URINE AUTO 1.016 (1.002-1.035); SQUAMOUS EPITHELIAL CELL UR AU 1 /HPF (0-6); UROBILINOGEN, URINE AUTO 0.2 mg/dL (0.0-2.0); WBC, URINE AUTO TNTC /HPF (0-3)
== END ==
PROVIDERS: ATTEND Internal Medicine
DX: R39.81 Functional urinary incontinence (principal)

== ENCOUNTER → 2020-06-26 | Outpatient (REF) | payer MEDICARE, MEDICAID ==
[2020-06-26 18:27] LABS: BACTERIA, URINE AUTO NEGATIVE (NEGATIVE); CALCIUM OXALATE CRYSTALS SMALL; MUCUS, URINE SMALL (NEGATIVE); RBC, URINE AUTO 75 /HPF (0-3); SQUAMOUS EPITHELIAL CELL UR AU 0 /HPF (0-6); WBC, URINE AUTO TNTC /HPF (0-3)
== END ==
LOC: M LAB REF 11:35
PROVIDERS: ATTEND Internal Medicine
DX: N39.0 Urinary tract infection, site not specified (principal); R32 Unspecified urinary incontinence

== ENCOUNTER 2020-07-07 01:02 | Emergency (ER) | payer MEDICARE, MEDICAID ==
[~2020-07-07] VITALS: Ht 172.7 cm; Wt 92.7 kg
[2020-07-07] MEDS ORDERED: BOOSTRIX/ADACEL VACCINE (DIPHTH/PERTUSS/ACELL/TETANUS) 0.5ML SYR IM ONE (01:45)
--- NOTE | 2020-07-07 01:59 | REPVR ---
PROCEDURE INFORMATION: Exam: CT Head Without Contrast Exam date and time: 07/07/2020 1:29 AM Age: 79 years old Clinical indication: Injury or trauma; Fall; Concussion/head injury; Consciousness not specified TECHNIQUE: Imaging protocol: Computed tomography of the head without contrast. Radiation optimization: All CT scans at this facility use at least one of these dose optimization techniques: automated exposure control; mA and/or kV adjustment per patient size (includes targeted exams where dose is matched to clinical indication); or iterative reconstruction. COMPARISON: CT Head without contrast 09/08/2016 11:56 AM FINDINGS: Brain: No intracranial mass, mass effect or midline shift. No acute intracranial hemorrhage. No CT evidence of acute cortical infarct. Ventricles, cisterns, and sulci are normal in size for age. Bones/joints: No calvarial fracture or destructive process. Paranasal sinuses: Imaged paranasal sinuses are normally aerated. Mastoid air cells: Mastoid air cells and middle ear structures are normally aerated. Orbital cavity: Imaged orbits are unremarkable. Soft tissues: Right posterior vertex scalp hematoma extracranial soft tissue swelling. IMPRESSION: 1. No acute or concerning focal intracranial abnormality. 2. Right posterior vertex extracranial scalp hematoma the Electronically signed by: Mushtaq Newman On 07/07/2020 01:58:50 AM
--- NOTE | 2020-07-07 02:01 | REPVR ---
PROCEDURE INFORMATION: Exam: CT Cervical Spine Without Contrast Exam date and time: 07/07/2020 1:29 AM Age: 79 years old Clinical indication: Neck pain; Additional info: Fall TECHNIQUE: Imaging protocol: Computed tomography images of the cervical spine without contrast. Radiation optimization: All CT scans at this facility use at least one of these dose optimization techniques: automated exposure control; mA and/or kV adjustment per patient size (includes targeted exams where dose is matched to clinical indication); or iterative reconstruction. COMPARISON: CT Spine,cervical w/o contrast 09/05/2016 6:59 PM FINDINGS: Bones/joints: No traumatic segmental malalignment of cervical spine or craniocervical junction. Vertebral body height is maintained at all levels. No acute fracture. No destructive or blastic cervical spine osseous lesion. Discs/Spinal canal/Neural foramina: Intervertebral disc height is decreased at multiple levels, with typical degenerative pattern and associated endplate, articular pillar and uncovertebral spurs. Soft tissues: Soft tissues show no concerning abnormality or asymmetry. Lungs: Apical emphysematous changes and mild reticular fibrosis. IMPRESSION: 1. No acute fracture or traumatic subluxation of the cervical spine. 2. Multilevel degenerative disc and articular pillar arthropathy. Electronically signed by: Mushtaq Newman On 07/07/2020 02:01:12 AM
[2020-07-07 02:04] LABS: BASO # 0.1 10^3/uL (0.0-0.2); BASO % 0.7 % (0.0-1.0); EOS # 0.2 10^3/uL (0.0-0.5); EOS % 2.3 % (0.0-3.0); HEMOGLOBIN 13.7 g/dl (13.5-17.5); LYMPH # 1.4 10^3/uL (1.5-5.0); LYMPH % 16.2 % (24.0-44.0); MEAN CORPUSCULAR HGB CONC 31.1 g/dl (32.0-36.5); MONO # 0.7 10^3/uL (0.0-0.8); MONO % 7.7 % (0.0-5.0); NEUTROPHILS # 6.2 10^3/uL (1.5-8.5); NEUTROPHILS % 72.5 % (36.0-66.0); PLATELET COUNT, AUTOMATED 199 10^3/uL (150-450); RED BLOOD COUNT 4.73 10^6/uL (4.30-6.10); WHITE BLOOD COUNT 8.6 10^3/uL (4.0-10.0)
[2020-07-07 02:48] LABS: BILIRUBIN,TOTAL 0.3 MG/DL (0.2-1.0); CALCIUM LEVEL 8.4 MG/DL (8.8-10.2); CREATININE FOR GFR 1.76 MG/DL (0.70-1.30); GLOMERULAR FILTRATION RATE 40.2 (>42); POTASSIUM SERUM 4.2 MEQ/L (3.5-5.1); TOTAL PROTEIN 6.4 GM/DL (6.4-8.2)
[2020-07-07 04:04] VITALS: BP 160/79
== END 2020-07-07 04:10 | disposition home or self-care (01) ==
LOC: M ED 01:02
DX: S06.0X0A Concussion without loss of consciousness, initial encounter (principal); W22.8XXA Striking against or struck by other objects, initial encounter; Y92.122 Bedroom in nursing home as the place of occurrence of the external cause; Y93.9 Activity, unspecified; E11.9 Type 2 diabetes mellitus without complications; I12.9 Hypertensive chronic kidney disease with stage 1 through stage 4 chronic kidney disease, or unspecified chronic kidney disease; E03.9 Hypothyroidism, unspecified; Z79.82 Long term (current) use of aspirin; Z79.899 Other long term (current) drug therapy; Z79.4 Long term (current) use of insulin

== ENCOUNTER → 2020-07-13 | Outpatient (REF) | payer MEDICARE, MEDICAID | PROVIDERS: ATTEND Internal Medicine | DX: Z20.828 Contact with and (suspected) exposure to other viral communicable diseases (principal) ==

== ENCOUNTER → 2020-08-03 | Outpatient (REF) | payer MEDICARE, MEDICAID | PROVIDERS: ATTEND Internal Medicine | DX: Z20.828 Contact with and (suspected) exposure to other viral communicable diseases (principal) | CPT/HCPCS: G0463; U0003 ==

== ENCOUNTER → 2020-08-07 | Outpatient (REF) | payer MEDICARE, MEDICAID ==
[2020-08-07 12:07] LABS: BASO # 0.1 10^3/uL (0.0-0.2); BASO % 0.7 % (0.0-1.0); EOS # 0.2 10^3/uL (0.0-0.5); EOS % 2.9 % (0.0-3.0); HEMATOCRIT 48.1 % (42.0-52.0); HEMOGLOBIN 14.5 g/dl (13.5-17.5); LYMPH # 1.6 10^3/uL (1.5-5.0); LYMPH % 18.7 % (24.0-44.0); MEAN CORPUSCULAR HEMOGLOBIN 27.5 pg (27.0-33.0); MEAN CORPUSCULAR HGB CONC 30.1 g/dl (32.0-36.5); MEAN CORPUSCULAR VOLUME 91.3 fl (80.0-96.0); MONO # 0.6 10^3/uL (0.0-0.8); MONO % 7.5 % (0.0-5.0); NEUTROPHILS # 5.7 10^3/uL (1.5-8.5); NEUTROPHILS % 68.9 % (36.0-66.0); PLATELET COUNT, AUTOMATED 238 10^3/uL (150-450); RED BLOOD COUNT 5.27 10^6/uL (4.30-6.10); WHITE BLOOD COUNT 8.3 10^3/uL (4.0-10.0)
[2020-08-07 12:39] LABS: ALBUMIN 3.2 GM/DL (3.2-5.2); ALT/SGPT 39 U/L (12-78); BILIRUBIN,TOTAL 0.5 MG/DL (0.2-1.0); BLOOD UREA NITROGEN 21 MG/DL (7-18); CALCIUM LEVEL 8.9 MG/DL (8.8-10.2); CARBON DIOXIDE LEVEL 26 MEQ/L (21-32); CHLORIDE LEVEL 108 MEQ/L (98-107); CREATININE FOR GFR 1.36 MG/DL (0.70-1.30); FREE T4 1.02 NG/DL (0.76-1.46); GLOMERULAR FILTRATION RATE 54.1 (>42); GLUCOSE, FASTING 89 MG/DL (70-100); SODIUM LEVEL 140 MEQ/L (136-145); TOTAL PROTEIN 6.6 GM/DL (6.4-8.2)
[2020-08-07 13:06] LABS: HEMOGLOBIN A1c 7.3 %
[2020-08-08 12:24] LABS: ALBUMIN 3.33 GM/DL (3.29-5.55); ALBUMIN % 50.5 % (55.8-66.1); ALPHA-1-GLOBULIN % 4.9 % (2.9-4.9); ALPHA-1-GLOBULINS 0.32 GM/DL (0.17-0.41); ALPHA-2-GLOBULINS 0.99 GM/DL (0.42-0.99); BETA-1-GLOBULINS 0.41 GM/DL (0.28-0.60); BETA-1-GLOBULINS % 6.2 % (4.7-7.2); BETA-2-GLOBULINS 0.48 GM/DL (0.19-0.55); BETA-2-GLOBULINS % 7.3 % (3.2-6.5); GAMMA GLOBULIN % 16.1 % (11.1-18.8); GAMMA GLOBULINS 1.06 GM/DL (0.65-1.58)
== END ==
PROVIDERS: ATTEND Psychiatry & Neurology Neurology
DX: G62.9 Polyneuropathy, unspecified (principal); R53.1 Weakness; E11.9 Type 2 diabetes mellitus without complications; E53.8 Deficiency of other specified B group vitamins; Z91.81 History of falling

== ENCOUNTER → 2020-08-08 | Outpatient (REF) | payer MEDICARE, MEDICAID ==
[2020-08-08 16:36] LABS: INFLUENZA A AMPLIFICATION NEGATIVE (NEGATIVE); INFLUENZA B AMPLIFICATION NEGATIVE (NEGATIVE)
== END ==
PROVIDERS: ATTEND Internal Medicine
DX: Z20.828 Contact with and (suspected) exposure to other viral communicable diseases (principal)
CPT/HCPCS: 87502; U0003

== ENCOUNTER → 2020-08-13 | Outpatient (REF) | payer MEDICARE, MEDICAID | PROVIDERS: ATTEND Internal Medicine | DX: Z20.828 Contact with and (suspected) exposure to other viral communicable diseases (principal) ==

== ENCOUNTER → 2020-08-20 | Outpatient (REF) | payer MEDICARE, MEDICAID | PROVIDERS: ATTEND Internal Medicine | DX: Z20.828 Contact with and (suspected) exposure to other viral communicable diseases (principal) ==

== ENCOUNTER 2020-08-23 12:49 | Inpatient (IN) | payer MEDICARE, MEDICAID ==
[~2020-08-23] VITALS: Ht 172.7 cm; Wt 90.7 kg
--- NOTE | 2020-08-23 15:30 | REP ---
INDICATION: Hypoxia, COVID 19 positive COMPARISON: 12/17/2018 TECHNIQUE: Portable AP view of the chest FINDINGS: The mediastinum and cardiac silhouette are stable and within normal limits for portable technique. The lung durant demonstrate diffuse chronic stable interstitial changes. No obvious focal consolidation, effusion, or pneumothorax. However subtle early left lower lobe airspace disease cannot be excluded. IMPRESSION: Stable chronic interstitial changes without focal consolidation or effusion. Subtle early left lower lobe airspace disease cannot be excluded and should be correlated with auscultation. <Electronically signed by Elkin Cabello > 08/23/20 1520
[2020-08-23 15:34] LABS: BASO % 0.2 % (0.0-1.0); EOS % 0.4 % (0.0-3.0); HEMATOCRIT 42.1 % (42.0-52.0); LYMPH # 0.8 10^3/uL (1.5-5.0); LYMPH % 17.5 % (24.0-44.0); MEAN CORPUSCULAR HEMOGLOBIN 27.5 pg (27.0-33.0); MEAN CORPUSCULAR HGB CONC 30.9 g/dl (32.0-36.5); MONO # 0.4 10^3/uL (0.0-0.8); NEUTROPHILS # 3.3 10^3/uL (1.5-8.5); NEUTROPHILS % 72.5 % (36.0-66.0); PLATELET COUNT, AUTOMATED 176 10^3/uL (150-450); RED BLOOD COUNT 4.73 10^6/uL (4.30-6.10); WHITE BLOOD COUNT 4.6 10^3/uL (4.0-10.0)
[2020-08-23 15:49] LABS: INR 1.06
[2020-08-23 15:52] LABS: D-DIMER QUANT 1695.91 ng/ml (<500)
[2020-08-23 16:00] VITALS: BP 134/63; O2SAT 95
[2020-08-23 16:09] LABS: ALBUMIN 2.7 GM/DL (3.2-5.2); ALT/SGPT 36 U/L (12-78); BILIRUBIN,DIRECT 0.2 MG/DL (0.0-0.2); BILIRUBIN,TOTAL 0.5 MG/DL (0.2-1.0); BLOOD UREA NITROGEN 29 MG/DL (7-18); C REACTIVE PROTEIN QUANTITATIV 6.38 MG/DL (0.00-0.30); CARBON DIOXIDE LEVEL 24 MEQ/L (21-32); CHLORIDE LEVEL 106 MEQ/L (98-107); CK-MB VALUE MASS 1.2 NG/ML (<3.6); CPK CREATINE PHOSPHOKINASE 152 U/L (39-308); CREATININE FOR GFR 1.57 MG/DL (0.70-1.30); FERRITIN 428 NG/ML (26-388); GLOMERULAR FILTRATION RATE 45.8 (>42); GLUCOSE, FASTING 151 MG/DL (70-100); LDH LACTATE DEHYDROGENASE 248 U/L (87-241); MB/CK RELATIVE INDEX 0.79 (< OR =4); NT-PRO BNP 431 PG/ML (<450); POTASSIUM SERUM 4.6 MEQ/L (3.5-5.1); SODIUM LEVEL 136 MEQ/L (136-145); TRIGLYCERIDES LEVEL 86 MG/DL (<150); TROPONIN I < 0.02 NG/ML (< 0.10)
[2020-08-23] MEDS ORDERED: ANALGESIC BALM CRM 120 GM TOP PRN (16:45)
--- NOTE | 2020-08-23 16:54 | DS.PDOC ---
Discharge Summary General Date of Admission Aug 23, 2020 at 14:24 Date of Discharge Aug 23, 2020 Attending Physician: ELBA MARAVILLA DO Discharge Summary PROCEDURES PERFORMED DURING STAY: None ADMITTING DIAGNOSES: 1. COVID 19 2. Bronchospasm 3. COPD DISCHARGE DIAGNOSES: 1. COVID 19 2. Bronchospasm 3. COPD COMPLICATIONS/CHIEF COMPLAINT: Covid Positive. HISTORY OF PRESENT ILLNESS: Mr. Mantilla is a 79 year old male from [facility] with diabetes mellitus, COPD, paroxysmal atrial fibrillation (not on anticoagulation) and dementia who is here for hypoxia in the setting of COVID 19 infection. While at [facility], he has been tested weekly for COVID. He was negative on 08/03/2020, 08/08/2020, and 08/13/2020. On 08/20/2020, he was tested positive. Spoke with [facility] nurse practitioner, Amy Steiner ([phone]) and [facility] nurse, Pepper ([phone]) who provided the following history. Yesterday (08/22/2020), he started to not feel well. His oxygen saturation was 92% at room air, but he was not eating as much. Today, he desaturated down to 70%. He required 4L of NC to maintain saturation at 92%. His temp was 98.1, HR 60, and RR24. [facility] had requested a direct transfer to [facility] which was accepted. HOSPITAL COURSE: Prior to arrival to [facility], he was given albuterol. When he arrived, he was weaned down to room air, saturating at 95%. He does not remember any dyspnea, but reports yesterday, food started to lose it's taste. Denies fever/chills, chest pain, dyspnea, abdominal pain, diarrhea, or dysuria. Denies having visitors while at [facility]. He overall feels well. Vital signs stable. Labs do demonstrate very mild signs of inflammation, but expected with COVID infection. Lactic acid was elevated, but he is perfusing well. Suspecting type B lactic acid from albuterol. Since there is no hypoxia, he is not a candidate for Remdesivir or steroids. Since he was admitted, he cannot have monoclonal ant ibiotics. No productive cough, fever, leukocytosis or infiltrate to suggest bacterial pneumonia. Spoke with [facility] nurse practitioner, Amy Steiner, about sending patient back to [facility]. She spoke with nursing game farm supervisor, Marely, who gave the okay to have the patient return to [facility]. While ICU nurse was giving sign out to [facility] nurse, [facility] nurse requested that we send, Prednisone, Azithromycin, Ascorbic acid, and Vitamin D3, as their provider had ordered, but was not given. I added these medications to the discharge medication list except for Vitamin D3 as it was already on our discharged med rec. In addition, I noticed the med rec was missing PRN albuterol. Med rec from [facility] demonstrated albuterol on list. Added PRN albuterol to discharge medication list. DISCHARGE MEDICATIONS: Please see below. ALLERGIES: Please see below. PHYSICAL EXAMINATION ON DISCHARGE: VITAL SIGNS: Please see below. GENERAL: Comfortable, in no apparent distress. HEENT: Head normocephalic/atraumatic, EOMI, sclera clear. NECK: Supple, no JVD. RESPIRATORY: Lungs clear to auscultation bilaterally, no rales, wheeze or r honchi. CARDIOVASCULAR: Regular rate and rhythm. ABDOMEN: Soft, nontender, no guarding or rebound tenderness. Normal bowel sounds. MUSCLE SKELETAL: Muscle strength 5/5 in all extremities. NEUROLOGICAL: CN 312 grossly intact, no focal deficits noted. PSYCHOLOGICAL: Normal mood and affect LABORATORY DATA: Please see below. IMAGING: (radiologist interpretation) CXR Stable chronic interstitial changes without focal consolidation or effusion. Subtle early left lower lobe airspace disease cannot be excluded and should be correlated with auscultation. PROGNOSIS: Good ACTIVITY: As tolerated. DIET: Carbohydrate consistent diet DISCHARGE PLAN: Return back to [facility] DISPOSITION: Discharge to [facility]. DISCHARGE INSTRUCTIONS: 1. Follow up with provider at [facility] 2. Albuterol PRN for Dyspnea 3. Okay for prednisone and azithromycin 4. If symptoms worsen or develops fever/chills, productive cough, or worsening dyspnea, present to the ED for evaluation DISCHARGE CONDITION: Stable Total time spent on discharge planning, discharge summary, and medication reconciliation: 55 minutes Laboratory Data Labs 24H Laboratory Tests 2 08/23/20 15:11: Immature Granulocyte % (Auto) 0.4, Neutrophils (%) (Auto) 72.5H, Lymphocytes (%) (Auto) 17.5L, Monocytes (%) (Auto) 9.0H, Eosinophils (%) (Auto) 0.4, Basophils (%) (Auto) 0.2, Neutrophils # (Auto) 3.3, Lymphocytes # (Auto) 0.8L, Monocytes # (Auto) 0.4, Eosinophils # (Auto) 0.0, Basophils # (Auto) 0.0, Nucleated Red Blood Cells % (auto) 0.0, Prothrombin Time 14.0, Prothromb Time International Ratio 1.06, Activated Partial Thromboplast Time 31.0, Fibrinogen 552H, D-Dimer, Quantitative 1695.91H, Anion Gap 6L, Glomerular Filtration Rate 45.8, Lactic Acid Level 2.7*H, Calcium Level 8.0L, Ferritin 428H, Total Bilirubin 0.5, Direct Bilirubin 0.2, Aspartate Amino Transf (AST/SGOT) 38H, Alanine Aminotransferase (ALT/SGPT) 36, Alkaline Phosphatase 129H, Lactate Dehydrogenase 248H, Total Creatine Kinase 152, Creatine Kinase MB 1.2, Creatine Kinase MB Relative Index 0.79, Troponin I < 0.02, C-Reactive Protein, Quantitative 6.38H, IQ-Whd-H-Type Natriuretic Peptide 431, Total Protein 6.0L, Albumin 2.7L, Albumin/Globulin Ratio 0.8, Triglycerides Level 86 CBC/BMP Laboratory Tests 08/23/20 15:11 Discharge Medications Scheduled Aripiprazole (Abilify) 2 Mg Tab, 2 MG PO DAILY, (Reported) Ascorbic Acid (Vitamin C) 500 Mg Capsule.er, 500 MG PO DAILY Aspirin (Aspirin EC) 81 Mg Tab, 81 MG PO DAILY, (Reported) Atorvastatin Calcium (Atorvastatin Calcium) 40 Mg Tab, 40 MG PO QHS, (Reported) Azithromycin (Azithromycin) 500 Mg Tablet, 500 MG PO DAILY Bisoprolol Fumarate (Bisoprolol Fumarate) 5 Mg Tab, 5 MG PO DAILY, (Reported) Bupropion Hcl (Bupropion Xl) 150 Mg Tab, 300 MG PO DAILY, (Reported) Cyanocobalamin (Vitamin B-12) (Vitamin B-12) 1,000 Mcg Tab, 1,000 MCG PO DAILY, (Reported) Ergocalciferol (Vitamin D2) (Drisdol) 50,000 Unit Cap, 50,000 UNIT PO 1XWK, (Reported) SATURDAYS Fenofibrate,Micronized (Fenofibrate) 200 Mg Cap, 200 MG PO DAILY, (Reported) Indapamide (Indapamide) 1.25 Mg Tab, 1.25 MG PO Q2D, (Reported) Insulin Aspart Protamine/Aspar (Novolog Mix 70-30 Vial) 1 Units/0.01 Ml Susp, 36 UNITS SC DAILY, (Reported) Insulin Glargine (Lantus) 1 Units/0.01 Ml Susp, 14 UNITS SC QHS, (Reported) Levothyroxine Sodium (Synthroid) 100 Mcg Tab, 100 MCG PO DAILY, (Reported) Mirtazapine (Mirtazapine) 7.5 Mg Tab, 7.5 MG PO QHS, (Reported) Prednisone (Prednisone) 20 Mg Tablet, 20 MG PO DAILY Venlafaxine HCl (Venlafaxine HCl) 75 Mg Tab, 150 MG PO BID, (Reported) Scheduled PRN Acetaminophen (Acetaminophen) 325 Mg Tab, 650 MG PO Q4H PRN for PAIN / FEVER, (Reported) Albuterol Sulfate (Ventolin Hfa) 18 Gm Hfa.aer.ad, 2 PUFF INH Q4-6HP PRN for wheezing Clotrimazole (Lotrimin AF) 1 % Cre, 1 DOSE TOP BID PRN for REDNESS/IRRITATION, (Reported) Allergies Coded Allergies: No Known Allergies (Unverified , 03/03/03) ELBA MARAVILLA DO Aug 23, 2020 16:42
[2020-08-23] MEDS ORDERED: PURE500C5 PO (17:36)
[2020-08-23] MEDS ORDERED: PRED20TA PO (17:36)
[2020-08-23] MEDS ORDERED: AZIT500T5 PO (17:36)
[2020-08-23] MEDS ORDERED: VENTAER INH (22:06)
--- NOTE | 2020-08-23 22:10 | HPEPDOC ---
General Date of Admission Aug 23, 2020 at 14:24 Date of Service: Aug 23, 2020 Chief Complaint The patient is a 79-year-old male admitted with a reason for visit of Covid Positive. Source: Patient History of Present Illness Mr. Mantilla is a 79 year old male from [facility] with diabetes mellitus, COPD, paroxysmal atrial fibrillation (not on anticoagulation) and dementia who is here for hypoxia in the setting of COVID 19 infection. While at [facility], he has been tested weekly for COVID. He was negative on 08/03/2020, 08/08/2020, and 08/13/2020. On 08/20/2020, he was tested positive. Spoke with [facility] MANAGER [employer], Amy Steiner ([phone]) and [facility] nurse, Pepper ([phone]) who provided the following history. Yesterday (08/22/2020), he started to not feel well. His oxygen saturation was 92% at room air, but he was not eating as much. Today, he desaturated down to 70%. He required 4L of NC to maintain saturation at 92%. His temp was 98.1, HR 60, and RR24. [facility] had requested a direct transfer to [facility] which was accepted. Prior to arrival to [facility], he was given albuterol. When he arrived, he was weaned down to room air, saturating at 95%. He does not remember any dyspnea, but reports yesterday, food started to loose it's taste. Denies fever/chills, chest pain, abdominal pain, diarrhea, or dysuria. Denies having visitors while at [facility]. Home Medications Scheduled Aripiprazole (Abilify) 2 Mg Tab, 2 MG PO DAILY, (Reported) Ascorbic Acid (Vitamin C) 500 Mg Capsule.er, 500 MG PO DAILY Aspirin (Aspirin EC) 81 Mg Tab, 81 MG PO DAILY, (Reported) Atorvastatin Calcium (Atorvastatin Calcium) 40 Mg Tab, 40 MG PO QHS, (Reported) Azithromycin (Azithromycin) 500 Mg Tablet, 500 MG PO DAILY Bisoprolol Fumarate (Bisoprolol Fumarate) 5 Mg Tab, 5 MG PO DAILY, (Reported) Bupropion Hcl (Bupropion Xl) 150 Mg Tab, 300 MG PO DAILY, (Reported) Cyanocobalamin (Vitamin B-12) (Vitamin B-12) 1,000 Mcg Tab, 1,000 MCG PO DAILY, (Reported) Ergocalciferol (Vitamin D2) (Drisdol) 50,000 Unit Cap, 50,000 UNIT PO 1XWK, (Reported) SATURDAYS Fenofibrate,Micronized (Fenofibrate) 200 Mg Cap, 200 MG PO DAILY, (Reported) Indapamide (Indapamide) 1.25 Mg Tab, 1.25 MG PO Q2D, (Reported) Insulin Aspart Protamine/Aspar (Novolog Mix 70-30 Vial) 1 Units/0.01 Ml Susp, 36 UNITS SC DAILY, (Reported) Insulin Glargine (Lantus) 1 Units/0.01 Ml Susp, 14 UNITS SC QHS, (Reported) Levothyroxine Sodium (Synthroid) 100 Mcg Tab, 100 MCG PO DAILY, (Reported) Mirtazapine (Mirtazapine) 7.5 Mg Tab, 7.5 MG PO QHS, (Reported) Prednisone (Prednisone) 20 Mg Tablet, 20 MG PO DAILY Venlafaxine HCl (Venlafaxine HCl) 75 Mg Tab, 150 MG PO BID, (Reported) Scheduled PRN Acetaminophen (Acetaminophen) 325 Mg Tab, 650 MG PO Q4H PRN for PAIN / FEVER, (Reported) Clotrimazole (Lotrimin AF) 1 % Cre, 1 DOSE TOP BID PRN for REDNESS/IRRITATION, (Reported) Allergies Coded Allergies: No Known Allergies (Unverified , 03/03/03) Past Medical History Medical History 1. DM type 2 2. Atrial fibrillation, not on anticoagulation 3. Dementia 4. CKD 5. Dyslipidemia 6. Hypertension 7. Hypothyroidism 8. Anxiety Surgical History 1. Colonic abscess s/p resection with colostomy placement Family History Denies knowledge of parent's past medical history. Patient does have dementia Social History * Smoker: former Smoker Alcohol: Denies Drugs: denies A-FIB/CHADSVASC A-FIB History Current/History of A-Fib/PAF?: Yes Current PO Anticoag Therapy: No Review of Systems Constitutional: Denies: Chills, Fever Eyes: Denies: Pain ENT: Denies: Sore Throat Skin: Denies: Rash Pulmonary: Reports: Cough; Denies: Dyspnea Cardiovascular: Denies: Chest Pain Gastrointestinal: Reports: Other Symptoms (Loss of taste); Denies: Nausea, Abdominal Pain, Diarrhea Genitourinary: Denies: Dysuria Hematologic: Denies: Bruising Neurological: Denies: Numbness Psych: Reports: Memory Issues Physical Examination General Exam: Positive: Cooperative, No Acute Distress Eye Exam: Positive: EOMI; Negative: Sclera icteric ENT Exam: Positive: Atraumatic Neck Exam: Positive: Supple Chest Exam: Positive: Clear to auscultation; Negative: Rales, Rhonchi, Wheezing Heart Exam: Positive: Rate Normal, Regular Rhythm Abdomen Exam: Positive: Normal bowel sounds, Soft; Negative: Tenderness Extremity Exam: Positive: Edema (mild bilateral pitting) Neuro Exam: Positive: Cranial Nerves 3-12 NL Psych Exam: Negative: Memory Intact Vital Signs Temperature 98.7, Heart rate 80, Respiratory Rate 16, Blood pressure 134/63, SpO2 95% at room air Laboratory Data Labs 24H Laboratory Tests 2 08/23/20 15:11: Immature Granulocyte % (Auto) 0.4, Neutrophils (%) (Auto) 72.5H, Lymphocytes (%) (Auto) 17.5L, Monocytes (%) (Auto) 9.0H, Eosinophils (%) (Auto) 0.4, Basophils (%) (Auto) 0.2, Neutrophils # (Auto) 3.3, Lymphocytes # (Auto) 0.8L, Monocytes # (Auto) 0.4, Eosinophils # (Auto) 0.0, Basophils # (Auto) 0.0, Nucleated Red Blood Cells % (auto) 0.0 CBC/BMP Laboratory Tests 08/23/20 15:11 Assessment/Plan Mr. Mantilla is a 79 year old male from [facility] with diabetes mellitus, COPD, paroxysmal atrial fibrillation (not on anticoagulation) and dementia who is here for hypoxia in the setting of COVID 19 infection. When he arrived, his hypoxia resolved and he was breathing at room air at 95% saturation. He had received albuterol prior. CXR did not demonstrate infiltrates. No leukocytosis. No fever, dyspnea, or productive cough. Due to COPD, he may have had a bronchospasm from COVID respiratory infection. Continue with albuterol as needed. Plan / VTE VTE Prophylaxis Ordered?: Yes Plan Plan 1. Hypoxia -Reported 70% at room air at [facility] -Received albuterol before arriving at [facility] -Now at 95% at room air -Resolved -Albuterol as needed -Unlikely has pneumonia 2. COVID respiratory infection -Imaging does not demonstrate multifocal infiltrates, no productive cough, dyspnea, fever, or leukocytosis -Inflammatory markers mildly elevated -Not a candidate for monoclonal antibiotics as he was admitted -Not a candidate for remdesivir at this time 3. COPD -Continue PRN albuterol 4. DM -Continue insulin regimen and carbohydrate consistent diet 5. Hypothyroidism -Continue Levothyroxine 6. BPH -Continue tamsulosin and finasteride 7. Abnormal lab -Lactic acid was elevated, but unlikely due to hypoperfusion -Suspecting type B lactic acidosis from albuterol use 8. DVT ppx -Lovenox subq ELBA MARAVILLA DO Aug 23, 2020 16:40
[2020-08-24] MEDS ORDERED: dexameTHASONE 4 MG/ML 1ML VIAL (J1100 PER 1MG) IV SCH (09:00)
--- NOTE | 2020-08-25 20:04 | ECGEPIP ---
[facility] Test Date: 2020-08-23 Pat Name: GREER RAGLAND Department: Room: [place] [address] Gender: Male Industrial [employer]: SU : 1940 Requested By: ELBA Allen Order Number: [id number] Reading MD: Dony Lopez Measurements Intervals [place] Mark Rate: 72 P: 60 PA: 218 QRS: 36 QRSD: 90 T: 62 QT: 408 QTc: 447 Interpretive Statements Normal sinus rhythm with first degree AV block Low QRS complex voltage in the limb leads Nonspecific ST-T wave abnormalities No significant change when compared to prior tracing of 04/11/2018 Electronically Signed on 08-25-2020 20:04:11 EST by Dony Lopez
== END 2020-08-23 18:47 | DRG 179 ==
LOC: M ICU 14:24
PROVIDERS: ADMIT Family Medicine; ATTEND Internal Medicine
DX: U07.1 COVID-19 (principal); J44.9 Chronic obstructive pulmonary disease, unspecified; E11.9 Type 2 diabetes mellitus without complications; I48.0 Paroxysmal atrial fibrillation; F03.90 Unspecified dementia, unspecified severity, without behavioral disturbance, psychotic disturbance, mood disturbance, and anxiety; Z79.899 Other long term (current) drug therapy; Z79.82 Long term (current) use of aspirin; Z79.4 Long term (current) use of insulin; F41.9 Anxiety disorder, unspecified; E03.9 Hypothyroidism, unspecified; N18.9 Chronic kidney disease, unspecified; E78.5 Hyperlipidemia, unspecified; N40.0 Benign prostatic hyperplasia without lower urinary tract symptoms

== ENCOUNTER → 2020-08-27 | Outpatient (REF) | payer MEDICARE, MEDICAID ==
[~2020-08-27] MED LIST changes: +AZIT500T5 PO; +PRED20TA PO; +PURE500C5 PO; +VENTAER INH
== END ==
PROVIDERS: ATTEND Internal Medicine
DX: Z11.52 Encounter for screening for COVID-19 (principal)

== ENCOUNTER 2020-08-31 08:57 | Inpatient (IN) | payer MEDICARE, MEDICAID ==
[~2020-08-31] VITALS: Ht 172.7 cm; Wt 76.4 kg
[~2020-08-31 08:57] MED LIST changes: -BUPR150T3 PO; +BUPR150T4 PO
[2020-08-31 09:38] LABS: BASO % 0.4 % (0.0-1.0); EOS # 0.1 10^3/uL (0.0-0.5); EOS % 1.3 % (0.0-3.0); HEMATOCRIT 46.3 % (42.0-52.0); HEMOGLOBIN 14.3 g/dl (13.5-17.5); LYMPH # 1.2 10^3/uL (1.5-5.0); LYMPH % 12.3 % (24.0-44.0); MEAN CORPUSCULAR HEMOGLOBIN 28.3 pg (27.0-33.0); MEAN CORPUSCULAR HGB CONC 30.9 g/dl (32.0-36.5); MEAN CORPUSCULAR VOLUME 91.7 fl (80.0-96.0); MONO # 0.9 10^3/uL (0.0-0.8); NEUTROPHILS # 7.1 10^3/uL (1.5-8.5); NEUTROPHILS % 75.3 % (36.0-66.0); PLATELET COUNT, AUTOMATED 283 10^3/uL (150-450); RED BLOOD COUNT 5.05 10^6/uL (4.30-6.10); WHITE BLOOD COUNT 9.4 10^3/uL (4.0-10.0)
[2020-08-31] MEDS ORDERED: VENL75TA2 PO (09:51)
[2020-08-31] MEDS ORDERED: VITA200044 PO (09:51)
[2020-08-31] MEDS ORDERED: BASA100I SC (09:51)
[2020-08-31] MEDS ORDERED: FLOM0.4C39 PO (09:51)
[2020-08-31] MEDS ORDERED: GABA-1171 PO (09:51)
[2020-08-31] MEDS ORDERED: PROAAER10 INH (09:51)
[2020-08-31] MEDS ORDERED: BISO10TA13 PO (09:51)
[2020-08-31] MEDS ORDERED: FINA5TAB2 PO (09:51)
[2020-08-31] MEDS ORDERED: AZIT500T5 PO (09:51)
[2020-08-31] MEDS ORDERED: MIRT-60 PO (09:51)
[2020-08-31] MEDS ORDERED: VITA50005 PO (09:51)
[2020-08-31] MEDS ORDERED: MILKSUS7 PO (09:51)
[2020-08-31] MEDS ORDERED: LEVO125T4 PO (09:51)
[2020-08-31] MEDS ORDERED: C-50CHW5 PO (09:51)
[2020-08-31] MEDS ORDERED: BUPR75TA69 PO (09:51)
[2020-08-31] MEDS ORDERED: ACET25TA12 PO (09:51)
[2020-08-31] MEDS ORDERED: FLON1SPR NARES (09:51)
[2020-08-31] MEDS ORDERED: ANTI2TAB17 PO (09:51)
[2020-08-31] MEDS: NS 1,000 ML IV SCH ×2 (09:54→22:23)
--- NOTE | 2020-08-31 09:57 | REP ---
INDICATION: Altered Mental Status COMPARISON: 07/07/2020 TECHNIQUE: Axial noncontrast images from the skull base to the thoracic inlet with coronal reformations. This CT examination was performed using the following dose reduction techniques: Automated exposure control, adjustment of mA and/or kv according to the patient's size, and use of iterative reconstruction technique. FINDINGS: Age-related atrophy with periventricular leukomalacia and microvascular ischemic changes are appreciated. The ventricles and sulci are symmetric. Mendez-white differentiation is maintained. There is no evidence for acute intracranial hemorrhage, mass/mass effect, pathology or infarction. No extra-axial fluid collection. Calvarium is intact. Paranasal sinuses and mastoid air cells are clear. IMPRESSION: Age related atrophy and microvascular ischemic changes. No acute intracranial hemorrhage, infarction, or mass/mass effect. <Electronically signed by Elkin Cabello > 08/31/20 [id number]
[2020-08-31 10:25] LABS: ALBUMIN 2.5 GM/DL (3.2-5.2); BILIRUBIN,DIRECT 0.2 MG/DL (0.0-0.2); BILIRUBIN,TOTAL 0.5 MG/DL (0.2-1.0); THYROID STIMULATING HORMONE 1.71 uIU/ML (0.358-3.740); TOTAL PROTEIN 5.7 GM/DL (6.4-8.2)
--- NOTE | 2020-08-31 11:09 | REP ---
INDICATION: altered mental status COMPARISON: 08/23/2020 TECHNIQUE: Portable AP view of the chest FINDINGS: Mediastinum and cardiac silhouette are stable. Chronic interstitial changes are appreciated. Subtle superimposed left lower lobe atelectasis cannot be excluded. No focal consolidation, effusion, or pneumothorax. IMPRESSION: Chronic stable changes. Cannot exclude subtle superimposed left lower lobe atelectasis. <Electronically signed by Elkin Cabello > 08/31/20 [id number]
--- NOTE | 2020-08-31 13:37 | HPEPDOC ---
[facility] Medical History & Physical Date of Admission Aug 31, 2020 Date of Service: Aug 31, 2020 History and Physical CHIEF COMPLAINT: "not himself." HISTORY OF PRESENT ILLNESS: (pt confused-obtained from records) 79M [facility] assisted-living resident Covid 19 positive from August 23 with past medical history of A. fib, diabetes, chronic kidney disease stage III, chronic dementia, dyslipidemia, hypertension, hypothyroidism and anxiety was in his usual state state of health until today when he was found semi-responsive by [facility] staff. EMS was called and he was given 150 ML's of D10 on Route to the emergency room. In the emergency room, pt says "I don't know, " when asked how he is. He is not able to provide answers to ROS, and says, "I'm alright. . . I don't know." Basic metabolic panel glucose was 115. CT of head was negative for acute CVA. Urinalysis is pending. Chest x-ray shows possible early atelectasis, no consolidation. He was afebrile, temperature 98.8, saturating 91% on room air with normal white count. Ammonia level was 17 ( normal).ABG is pending. He has purposeful movements and eating his sandwich in the ER stretcher. 12 point review of system could not be obtained as patient is confused. Hospitalist was asked to admit the patient for evaluation of altered mental status. PAST MEDICAL HISTORY 1. DM type 2 2. Atrial fibrillation, not on anticoagulation 3. Dementia 4. CKD 3 5. Dyslipidemia 6. Hypertension 7. Hypothyroidism 8. Anxiety/depression 9. COVID -19 08/23/20 PAST SURGICAL HISTORY 1. 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 REVIEW OF SYSTEMS: per hpi unable to obtain due to confusion HOME MEDICATIONS: Please see below. PHYSICAL EXAMINATION: VITAL SIGNS: see below GENERAL APPEARANCE: Pleasantly confused, awake, alert, oriented x2 to himself and [facility] only comfortable eating his lunch. no respiratory distress. face is symmetric. no slurred speech. no echolalia. HEENT: some alopecia and thinninghair. No JVD, thyromegaly, cervical lymphadenopathy. Moist mucous membranes Face is symmetric. Tongue is midline. No pharyngeal erythema CARDIOVASCULAR: S1, S2, irregularly irregular, not tachycardic LUNGS: Diminished clear to auscultation. No wheezing, rales or rhonchi ABDOMEN: Soft nontender nondistended positive bowel sounds 4 quadrants EXTREMITIES: No pitting edema LABORATORY DATA: See below. IMAGING: SEE BELOW MICROBIOLOGY: Please see below. ASSESSMENT/PLAN: 79M [facility] assisted-living resident Covid 19 positive from August 23 with past medical history of A. fib, diabetes, chronic kidney disease stage III, chronic dementia, dyslipidemia, hypertension, hypothyroidism and anxiety was in his usual state state of health until today when he was found semi-responsive by [facility] staff. EMS was called and he was given 150 ML's of D10 on Route to the emergency room. In the emergency room, basic metabolic panel glucose was 1:15. CT of head was negative for acute CVA. Urinalysis is pending. Chest x-ray shows possible early atelectasis, no consolidation. He was afebrile, temperature 98.8, saturating 91% on room air with normal white count. Ammonia level was 17 ( normal). 12 point review of system could not be obtained as patient is confused. Hospitalist was asked to admit the patient for evaluation of altered mental status. Acute encephalopathy -Check UA, urine culture -No empiric antibiotics -CT of the head negative for acute CVA -Ammonia level is normal -Check ABG -No new medications or recent changes in his home meds -If new neurological issues, recheck CT of the head or MRI of the brain -Not septic: afebrile, no tachycardia, tachypnea, fever or elevated white count -Check pro calcitonin, CRP and ESR -Chest x-ray atelectasis, no infiltrate or consolidation -Check thyroid function tests DM type 2 - consistent carbohydrate renal diet -Fingersticks every before meals at bedtime with insulin sliding scale per protocol and coverage Atrial fibrillation, not on anticoagulation -At risk for CVA, but CT head was negative -Rate controlled Dementia -Chronic -According to [facility] staff, Patient is altered and is usually conversant and appropriate despite having chronic dementia CKD 3 -At baseline creatinine -Avoid nephrotoxins -Renally dose all medications Dyslipidemia -Chronic Hypertension -Stable. Resume home meds Hypothyroidism -Check thyroid function tests Anxiety/depression -No acute complaints or symptoms COVID -19 08/23/20 -Recheck. Covid -Contact and droplet precautions -Recheck inflammatory markers including ferritin, LDH, d-dimer, CRP, troponin ESR -Continuous pulse ox -If O2 sat of less than 94% with respiratory distress or tachypnea, and new positive Covid may be eligible for remdesevir if reinfection. DVT prophylaxis compression stockings Vital Signs Vital Signs Date Time Temp Pulse Resp B/P (MAP) Pulse Ox O2 Delivery O2 Flow Rate FiO2 08/31/20 09:30 98.8 50 18 176/79 (111) 91 Room Air Laboratory Data Labs 24H Laboratory Tests 2 08/31/20 09:22: Immature Granulocyte % (Auto) 1.7, Neutrophils (%) (Auto) 75.3H, Lymphocytes (%) (Auto) 12.3L, Monocytes (%) (Auto) 9.0H, Eosinophils (%) (Auto) 1.3, Basophils (%) (Auto) 0.4, Neutrophils # (Auto) 7.1, Lymphocytes # (Auto) 1.2L, Monocytes # (Auto) 0.9H, Eosinophils # (Auto) 0.1, Basophils # (Auto) 0.0, Nucleated Red Blood Cells % (auto) 0.0, Lactic Acid Level 1.5, Total Bilirubin 0.5, Direct Bilirubin 0.2, Aspartate Amino Transf (AST/SGOT) 25, Alanine Aminotransferase (ALT/SGPT) 51, Alkaline Phosphatase 112, Ammonia 17, Total Protein 5.7L, Albumin 2.5L, Albumin/Globulin Ratio 0.8, Thyroid Stimulating Hormone (TSH) 1.710 08/31/20 09:24: POC Glucose (Misc Panel) 115H, POC Sodium (Misc Panel) 136, POC Potassium (Misc Panel) 4.0, POC Chloride (Misc Panel) 101, POC Total CO2 (Misc Panel) 28.0H, POC Blood Urea Nitrogen (Misc Panel 29H, POC Ionized Calcium (Misc Panel) 4.6, POC Creatinine (Misc Panel) 1.5H, POC Hematocrit (Misc Panel) 44.0 08/31/20 09:26: POC Troponin I (Misc) 0.00 CBC/BMP Laboratory Tests 08/31/20 09:22 Home Medications Scheduled Acetaminophen/Diphenhydramine (Acetaminophen Pm Caplet) 1 Each Tablet, 1 TAB PO QHS FOR 5 DAYS, FINISH DATE 09/02/20 Albuterol Sulfate (Proair Hfa) 8.5 Gm Hfa.aer.ad, 2 PUFF INH Q4H 0100/0500/0900/1300/1700/2100 Aripiprazole (Abilify) 2 Mg Tab, 2 MG PO DAILY Ascorbic Acid (Vitamin C) 500 Mg Tab.chew, 500 MG PO DAILY Aspirin (Aspirin EC) 81 Mg Tab, 81 MG PO DAILY Atorvastatin Calcium (Atorvastatin Calcium) 40 Mg Tab, 40 MG PO QHS Azithromycin (Azithromycin) 500 Mg Tablet, 500 MG PO QHS FOR 10 DAYS, FINISH DATE 09/02/20 Bisoprolol Fumarate (Bisoprolol Fumarate) 10 Mg Tablet, 10 MG PO QHS Bupropion HCl (Bupropion HCl) 75 Mg Tablet, 75 MG PO DAILY Cholecalciferol (Vitamin D3) (Vitamin D3) 50 Mcg Capsule, 50 MCG PO DAILY Cyanocobalamin (Vitamin B-12) (Vitamin B-12) 1,000 Mcg Tab, 1,000 MCG PO DAILY Ergocalciferol (Vitamin D2) (Vitamin D2) 50,000 Units Cap, 50,000 UNITS PO QWEEK MONDAYS Finasteride (Finasteride) 5 Mg Tablet, 5 MG PO DAILY Fluticasone Propionate (Flonase Allergy Relief) 9.9 Ml [place].susp, 2 SPRAY NARES DAILY Gabapentin (Gabapentin) 100 Mg Capsule, 200 MG PO BID Insulin Aspart Protamine/Aspar (Novolog Mix 70-30 Vial) 1 Units/0.01 Ml Susp, 36 UNITS SC DAILY Insulin Glargine,Hum.rec.anlog (Basaglar Kwikpen U-100) 100 Unit/1 Ml Insuln.pen, 10 UNIT SC QHS Levothyroxine Sodium (Levothyroxine Sodium) 125 Mcg Tablet, 125 MCG PO QAM Mirtazapine (Remeron) 30 Mg Tablet, 30 MG PO QHS Tamsulosin HCl (Flomax) 0.4 Mg Capsule, 0.4 MG PO QPM Venlafaxine HCl (Venlafaxine HCl) 75 Mg Tab, 150 MG PO DAILY Venlafaxine HCl (Venlafaxine HCl) 75 Mg Tablet, 75 MG PO QHS Scheduled PRN Acetaminophen (Acetaminophen) 325 Mg Tab, 650 MG PO Q4H PRN for PAIN / FEVER Albuterol Sulfate (Proair Hfa) 8.5 Gm Hfa.aer.ad, 2 PUFF INH Q4H PRN for SOB/WHEEZING Loperamide HCl (Anti-Diarrheal) 2 Mg Tablet, 2 MG PO QID PRN for DIARRHEA Magnesium Hydroxide (Milk of Magnesia) 400 Mg/5 Ml Oral.susp, 2,400 MG PO DAILY PRN for CONSTIPATION Allergies Coded Allergies: No Known Allergies (Unverified , 03/03/03) A-FIB/CHADSVASC A-FIB History Current/History of A-Fib/PAF?: Yes Current PO Anticoag Therapy: No Age/Risk Factor Scoring CHADSVASC: CHADSVASC Response (Comments) Value Age Risk Factor Age >/= 75 years old 2 Gender Risk Factor Male 0 Hx of CHF No 0 Hx of HTN Yes 1 Hx of Stroke/TIA/or VTE No 0 Hx of Diabetes Yes 1 Hx of Vascular Disease No 0 Total 4 Treatment Treatment ordered: NONE Reason Anticoagulant not given: Other Other reason anticoagulant not: recurrent fall risk MASOUD CARR MD Aug 31, 2020 12:05
[2020-08-31 13:56] LABS: C REACTIVE PROTEIN QUANTITATIV 1.04 MG/DL (0.00-0.30); CK-MB VALUE MASS < 1.0 NG/ML (<3.6); CPK CREATINE PHOSPHOKINASE 43 U/L (39-308); FERRITIN 408 NG/ML (26-388); LDH LACTATE DEHYDROGENASE 216 U/L (87-241); MB/CK RELATIVE INDEX 2.33 (< OR =4); TROPONIN I < 0.02 NG/ML (< 0.10)
[2020-08-31 16:09] LABS: ABG BASE EXCESS 1.1 (-2.0-2.0); ABG O2 SATURATION 93.5 % (95.0-99.0); ABG PARTIAL PRESSURE CO2 37.4 mmHg (35.0-45.0); ABG PARTIAL PRESSURE O2 65.6 mmHg (75.0-100.0); ABG STANDARD HCO3 25.4 MEQ/L (22.0-26.0); ABG TOTAL CO2 26.2 MEQ/L (23.0-31.0); ABG pH (ARTERIAL) 7.443 UNITS (7.350-7.450)
[2020-08-31 16:20] VITALS: BP 134/62
[2020-08-31 20:00] VITALS: O2SAT 94
[2020-08-31] MEDS: ALBUTEROL 90 MCG/ACT 8GM HFA INHALER INH SCH ×2 (20:00→23:02)
[2020-08-31] MEDS ORDERED: ALBUTEROL 90 MCG/ACT 8GM HFA INHALER INH PRN (21:15)
[2020-08-31] MEDS ORDERED: MOM 30ML SUSPENSION UDC PO PRN (21:15)
[2020-08-31] MEDS ORDERED: GLUCOSE 4GM CHEW TABLET PO PRN (21:15)
[2020-08-31] MEDS ORDERED: GLUCAGON INJ 1MG VIAL SC PRN (21:15)
[2020-08-31] MEDS ORDERED: DEXTROSE 50% 50 ML SYRINGE IV PRN (21:15)
--- NOTE | 2020-08-31 21:37 | ECGEPIP ---
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
[2020-08-31 22:00] VITALS: BP 148/75; O2SAT 95
[2020-08-31] MEDS: GABAPENTIN 100 MG CAP PO SCH (22:23)
[2020-08-31] MEDS: TAMSULOSIN 0.4 MG CAP PO SCH (22:23)
[2020-08-31] MEDS: ATORVASTATIN 20 MG TAB PO SCH (22:23)
[2020-08-31] MEDS: LEVEMIR (INSULIN DETEMIR) 1 UNITS/0.01ML SC SCH (22:24)
[2020-09-01] VITALS (8 sets, daily range): BP systolic 126–157; BP diastolic 54–69; O2SAT 93–97
[2020-09-01] MEDS: MIRTAZAPINE 15 MG TAB PO SCH ×2 (01:45→20:55)
[2020-09-01] MEDS: bisoproloL fumarate 10 MG TAB PO SCH ×2 (01:46→20:56)
[2020-09-01] MEDS: VENLAFAXINE 37.5 MG TAB PO SCH ×3 (01:46→20:55)
[2020-09-01] MEDS: ALBUTEROL 90 MCG/ACT 8GM HFA INHALER INH SCH ×5 (04:44→20:40)
[2020-09-01] MEDS: HumaLOG INSULIN (NovoLOG) PER UNIT SC SCH ×4 (07:30→20:54)
[2020-09-01] MEDS: buPROPion 75 MG TAB PO SCH (09:00)
[2020-09-01] MEDS: ARIPiprazole 2 MG TAB PO SCH (09:57)
[2020-09-01] MEDS: GABAPENTIN 100 MG CAP PO SCH ×2 (09:57→20:55)
[2020-09-01] MEDS: CYANOCOBALAMIN 500 MCG TAB PO SCH (09:57)
[2020-09-01] MEDS: FINASTERIDE 5 MG TAB PO SCH (09:57)
[2020-09-01] MEDS: ASPIRIN 81 MG ENTERIC TAB PO SCH (09:57)
[2020-09-01] MEDS: FLUTICASONE PROP 0.05% NASAL SPRAY 16 GM (FLONASE) NARES SCH (09:58)
[2020-09-01] MEDS: LEVOTHYROXINE 125MCG TABLET (0.125MG) PO SCH (09:59)
[2020-09-01] MEDS: NS 1,000 ML IV SCH (09:59)
[2020-09-01 10:29] LABS: BASO % 0.6 % (0.0-1.0); EOS # 0.1 10^3/uL (0.0-0.5); EOS % 1.7 % (0.0-3.0); LYMPH # 0.9 10^3/uL (1.5-5.0); LYMPH % 12.2 % (24.0-44.0); MEAN CORPUSCULAR HEMOGLOBIN 27.2 pg (27.0-33.0); MEAN CORPUSCULAR HGB CONC 30.2 g/dl (32.0-36.5); MONO # 0.7 10^3/uL (0.0-0.8); MONO % 9.6 % (0.0-5.0); NEUTROPHILS # 5.4 10^3/uL (1.5-8.5); NEUTROPHILS % 74.1 % (36.0-66.0); PLATELET COUNT, AUTOMATED 259 10^3/uL (150-450); RED BLOOD COUNT 4.78 10^6/uL (4.30-6.10); WHITE BLOOD COUNT 7.2 10^3/uL (4.0-10.0)
[2020-09-01 10:50] LABS: BLOOD UREA NITROGEN 25 MG/DL (7-18); CARBON DIOXIDE LEVEL 25 MEQ/L (21-32); CHLORIDE LEVEL 108 MEQ/L (98-107); CREATININE FOR GFR 1.19 MG/DL (0.70-1.30); GLOMERULAR FILTRATION RATE > 60.0 (>42); GLUCOSE, FASTING 103 MG/DL (70-100); POTASSIUM SERUM 4.3 MEQ/L (3.5-5.1); SODIUM LEVEL 140 MEQ/L (136-145)
--- NOTE | 2020-09-01 12:24 | IPNPDOC ---
Date Seen The patient was seen on 09/01/20. Progress Note SUBJECTIVE: Patient is not as interactive today, able to state his name, but refused to answer further questions. His night was unremarkable. . He continues to be hypoxic with O2 saturation 91% to 93% on room air. Denies any cough, fevers overnight PHYSICAL EXAMINATION: VITAL SIGNS: see below GENERAL APPEARANCE: No distress. No use of respiratory accessory muscles, awake, alert, oriented to person only HEENT: some alopecia and thinninghair. No JVD, thyromegaly, cervical lymphadenopathy. Moist mucous membranes Face is symmetric. Tongue is midline. No pharyngeal erythema CARDIOVASCULAR: S1, S2, irregularly irregular, not tachycardic LUNGS: Diminished clear to auscultation. No wheezing, rales or rhonchi ABDOMEN: Soft nontender nondistended positive bowel sounds 4 quadrants EXTREMITIES: No pitting edema LABORATORY DATA: See below. IMAGING: SEE BELOW MICROBIOLOGY: Please see below. ASSESSMENT/PLAN: 79M [facility] assisted-living resident Covid 19 positive from Jul with past medical history of A. fib, diabetes, chronic kidney disease stage III, chronic dementia, dyslipidemia, hypertension, hypothyroidism and anxiety was in his usual state state of health until today when he was found semi-responsive by [facility] staff. EMS was called and he was given 150 ML's of D10 on Route to the emergency room. In the emergency room, basic metabolic panel glucose was 1:15. CT of head was negative for acute CVA. Urinalysis is pending. Chest x-ray shows possible early atelectasis, no consolidation. He was afebrile, temperature 98.8, saturating 91% on room air with normal white count. Ammonia level was 17 ( normal). 12 point review of system could not be obtained as patient is confused. Hospitalist was asked to admit the patient for evaluation of altered mental status. Acute encephalopathy -Negative. Urinalysis -No empiric antibiotics -CT of the head negative for acute CVA -Ammonia level is normal -Normal. ABG -No new medications or recent changes in his home medst -Unimpressive inflammatory markers -Chest x-ray atelectasis, no infiltrate or consolidation -Reviewed thyroid tests DM type 2 - consistent carbohydrate renal diet -Fingersticks every before meals at bedtime with insulin sliding scale per protocol and coverage Atrial fibrillation, not on anticoagulation -At risk for CVA, but CT head was negative -Rate controlled Dementia -Chronic -According to [facility] staff, Patient is altered and is usually conversant and appropriate despite having chronic dementia CKD 3 -At baseline creatinine -Avoid nephrotoxins -Renally dose all medications Dyslipidemia -Chronic Hypertension -Stable. Resume home meds Hypothyroidism - reviewed thyroid function tests Anxiety/depression -No acute complaints or symptoms COVID -19 08/23/20 -Despite hypoxia with O2 sat 91% on room air. Patient does not require remdesevir due to normal inflammatory markers -Contact and droplet precautions -Normal or only slightly elevated inflammatory markers, without signs of acute infection with normal pro calcitonin DVT prophylaxis. Lovenox VS, I&O, 24H, Fishbone Vital Signs/I&O Vital Signs Date Time Temp Pulse Resp B/P (MAP) Pulse Ox O2 Delivery O2 Flow Rate FiO2 09/01/20 06:00 93 Nasal Cannula 3.0 09/01/20 06:00 97.3 55 16 128/57 (80) I&O- Last 24 Hours up to 6 AM 09/01/20 06:00 Intake Total 840 ml Balance 840 ml Laboratory Data 24H LABS Laboratory Tests 2 08/31/20 12:45: Urine Color YELLOW, Urine Appearance CLEAR, Urine pH 6.0, Urine Specific [place] 1.016, Urine Protein 1+H, Urine Glucose (UA) NEGATIVE, Urine Ketones NEGATIVE, Urine Blood 1+H, Urine Nitrite NEGATIVE, Urine Bilirubin NEGATIVE, Urine Urobilinogen 0.2, Urine Leukocyte Esterase 2+H, Urine WBC (Auto) 39H, Urine RBC (Auto) 22H, Urine Hyaline Casts (Auto) 1, Urine Bacteria (Auto) NEGATIVE, Urine Squamous Epithelial Cells 0, Urine Mucus (Auto) SMALL, Urine Sperm (Auto) 08/31/20 13:10: Erythrocyte Sedimentation Rate 26H, D-Dimer, Quantitative 1450.45H, Ferritin 408H, Lactate Dehydrogenase 216, Total Creatine Kinase 43, Creatine Kinase MB < 1.0, Creatine Kinase MB Relative Index 2.33, Troponin I < 0.02, C-Reactive Protein, Quantitative 1.04H, Procalcitonin <0.05, Prolactin 6.8 08/31/20 15:55: Blood Gas Bicarbonate Standard 25.4, Arterial Blood pH 7.443, Arterial Blood Partial Pressure CO2 37.4, Arterial Blood Partial Pressure O2 65.6L, Arterial Blood Total CO2 26.2, Arterial Blood HCO3 25.0, Arterial Blood Base Excess 1.1, Arterial Blood Oxygen Saturation 93.5L 08/31/20 22:19: Bedside Glucose (Misc Panel) 126H 09/01/20 09:30: Bedside Glucose (Misc Panel) 93 09/01/20 09:55: Immature Granulocyte % (Auto) 1.8, Neutrophils (%) (Auto) 74.1H, Lymphocytes (%) (Auto) 12.2L, Monocytes (%) (Auto) 9.6H, Eosinophils (%) (Auto) 1.7, Basophils (%) (Auto) 0.6, Neutrophils # (Auto) 5.4, Lymphocytes # (Auto) 0.9L, Monocytes # (Auto) 0.7, Eosinophils # (Auto) 0.1, Basophils # (Auto) 0.0, Nucleated Red Blood Cells % (auto) 0.0, Anion Gap 7L, Glomerular Filtration Rate > 60.0, Calcium Level 8.0L CBC/BMP Laboratory Tests 09/01/20 09:55 Microbiology Microbiology 08/31/20 Urine Culture - Final, Complete MASOUD CARR MD Sep 01, 2020 12:24
[2020-09-01] MEDS ORDERED: ENOXAPARIN 40MG/0.4ML SYRINGE (J1650 PER 10MG) SC ONE (13:00)
[2020-09-01] MEDS: LEVEMIR (INSULIN DETEMIR) 1 UNITS/0.01ML SC SCH (20:54)
[2020-09-01] MEDS: TAMSULOSIN 0.4 MG CAP PO SCH (20:55)
[2020-09-01] MEDS: ATORVASTATIN 20 MG TAB PO SCH (20:55)
[2020-09-01] MEDS: ACETAMINOPHEN TAB 650MG DOSE (2X325MG) PO PRN (20:57)
[2020-09-02 02:45] VITALS: O2SAT 96
[2020-09-02 04:37] VITALS: O2SAT 93
[2020-09-02] MEDS: LEVOTHYROXINE 125MCG TABLET (0.125MG) PO SCH (05:45)
[2020-09-02 06:00] VITALS: BP 146/67
[2020-09-02 06:00] LABS: BASO % 0.3 % (0.0-1.0); EOS # 0.2 10^3/uL (0.0-0.5); EOS % 2.5 % (0.0-3.0); HEMATOCRIT 42.3 % (42.0-52.0); HEMOGLOBIN 13.2 g/dl (13.5-17.5); LYMPH # 1.2 10^3/uL (1.5-5.0); LYMPH % 16.9 % (24.0-44.0); MEAN CORPUSCULAR HEMOGLOBIN 28.3 pg (27.0-33.0); MEAN CORPUSCULAR HGB CONC 31.2 g/dl (32.0-36.5); MEAN CORPUSCULAR VOLUME 90.8 fl (80.0-96.0); MONO # 0.7 10^3/uL (0.0-0.8); MONO % 10.5 % (0.0-5.0); NEUTROPHILS # 4.7 10^3/uL (1.5-8.5); NEUTROPHILS % 68.3 % (36.0-66.0); PLATELET COUNT, AUTOMATED 239 10^3/uL (150-450); RED BLOOD COUNT 4.66 10^6/uL (4.30-6.10); WHITE BLOOD COUNT 6.9 10^3/uL (4.0-10.0)
[2020-09-02 06:42] LABS: BLOOD UREA NITROGEN 22 MG/DL (7-18); CALCIUM LEVEL 8.1 MG/DL (8.8-10.2); CARBON DIOXIDE LEVEL 27 MEQ/L (21-32); CHLORIDE LEVEL 109 MEQ/L (98-107); CREATININE FOR GFR 1.21 MG/DL (0.70-1.30); GLOMERULAR FILTRATION RATE > 60.0 (>42); GLUCOSE, FASTING 64 MG/DL (70-100); SODIUM LEVEL 140 MEQ/L (136-145)
[2020-09-02] MEDS: HumaLOG INSULIN (NovoLOG) PER UNIT SC SCH ×4 (07:30→20:56)
[2020-09-02] MEDS: ALBUTEROL 90 MCG/ACT 8GM HFA INHALER INH SCH ×6 (07:30→23:44)
[2020-09-02] MEDS: ARIPiprazole 2 MG TAB PO SCH (07:48)
[2020-09-02] MEDS: ASPIRIN 81 MG ENTERIC TAB PO SCH (07:48)
[2020-09-02] MEDS: ENOXAPARIN 40MG/0.4ML SYRINGE (J1650 PER 10MG) SC SCH (07:48)
[2020-09-02] MEDS: buPROPion 75 MG TAB PO SCH (07:48)
[2020-09-02] MEDS: VENLAFAXINE 37.5 MG TAB PO SCH ×2 (07:48→21:36)
[2020-09-02] MEDS: FINASTERIDE 5 MG TAB PO SCH (07:49)
[2020-09-02] MEDS: FLUTICASONE PROP 0.05% NASAL SPRAY 16 GM (FLONASE) NARES SCH (07:49)
[2020-09-02] MEDS: CYANOCOBALAMIN 500 MCG TAB PO SCH (07:49)
[2020-09-02] MEDS: GABAPENTIN 100 MG CAP PO SCH ×2 (07:49→21:36)
[2020-09-02 09:00] VITALS: O2SAT 91
[2020-09-02 10:24] LABS: INR 1.11; PROTHROMBIN TIME 14.6 SECONDS (12.5-14.3)
[2020-09-02 10:25] LABS: PARTIAL THROMBOPLASTIN TIME 32.7 SECONDS (24.2-38.5)
[2020-09-02 10:28] LABS: D-DIMER QUANT 1002.2 ng/ml (<500)
[2020-09-02 10:57] LABS: C REACTIVE PROTEIN QUANTITATIV 2.03 MG/DL (0.00-0.30); CK-MB VALUE MASS 1.2 NG/ML (<3.6); CPK CREATINE PHOSPHOKINASE 43 U/L (39-308); FERRITIN 396 NG/ML (26-388); LDH LACTATE DEHYDROGENASE 184 U/L (87-241); MB/CK RELATIVE INDEX 2.79 (< OR =4); NT-PRO BNP 220 PG/ML (<450); TRIGLYCERIDES LEVEL 123 MG/DL (<150); TROPONIN I < 0.02 NG/ML (< 0.10)
[2020-09-02 14:30] VITALS: BP 137/63
--- NOTE | 2020-09-02 15:32 | IPNPDOC ---
Text Note Date of Service The patient was seen on 09/02/20. NOTE SUBJECTIVE: -Denies any cough, SOB or fever -No acute issues overnight -Interactive this morning PHYSICAL EXAMINATION: VITAL SIGNS: see below GENERAL APPEARANCE: No distress. No use of respiratory accessory muscles, awake, alert HEENT: Sparse, thinned hair, anicteric, EOMI, MMM Neck: No JVD, thyromegaly, cervical lymphadenopathy. CARDIOVASCULAR: S1, S2, irregularly irregular, not tachycardic LUNGS: Diminished clear to auscultation. No wheezing, rales or rhonchi ABDOMEN: Soft nontender nondistended positive bowel sounds 4 quadrants EXTREMITIES: No pitting edema NEURO: AOx2 to self and place, not time, knows Oziel is president. Speech is clear, moving all extremities PSYCH: AOx2 LABORATORY DATA: Reviewed. IMAGING: SEE BELOW MICROBIOLOGY: Please see below. ASSESSMENT/PLAN: 79M [facility] assisted-living resident Covid 19 positive from August 23 with past medical history of A. fib, diabetes, chronic kidney disease stage III, chronic dementia, dyslipidemia, hypertension, hypothyroidism and anxiety who was admitted for acute encephalopathy. Acute encephalopathy: likely metabolic 2/2 covid-19 infection. Doing much better. -UA++ without bacteria and UCx negative. Will recheck with straight cath -No empiric antibiotics -CT of the head was negative for acute pathology -Ammonia level was normal -Normal ABG -No new medications or recent changes in his home meds -Unimpressive inflammatory markers at admission -Chest x-ray atelectasis, no infiltrate or consolidation -TSH wnl COVID -19 infection with mild hypoxemia -Recheck inflammatory markers per protocol -monitor sats--> nursing reports that he is down to 1L this morning and will try to wean off -Contact and droplet precautions -Procalcitonin was wnl at baseline, will check f/u labs DM type 2 -consistent carbohydrate renal diet -Fingersticks every before meals at bedtime with insulin sliding scale per protocol and coverage Atrial fibrillation, not on anticoagulation -At risk for CVA, but CT head was negative -Rate controlled Dementia -Chronic -According to [facility] staff, Patient is altered and is usually conversant and appropriate despite having chronic dementia CKD 3 -At baseline creatinine -Avoid nephrotoxins -Renally dose all medications Dyslipidemia -Chronic Hypertension -Stable. Resume home meds Hypothyroidism - reviewed thyroid function tests Anxiety/depression -No acute complaints or symptoms DVT prophylaxis. Lovenox Dispo: 4 main, PT/OT. VS,Fishbone, I+O VS, Fishbone, I+O Laboratory Tests 09/01/20 09:55 09/02/20 05:40 Vital Signs Date Time Temp Pulse Resp B/P (MAP) Pulse Ox O2 Delivery O2 Flow Rate FiO2 09/02/20 06:00 96.9 52 18 146/67 (93) 96 Nasal Cannula 3.0 I&O- Last 24 Hours up to 6 AM 09/02/20 06:00 Intake Total 1020 ml Output Total 300 ml Balance 720 ml HARINI JOVEL MD Sep 02, 2020 09:52
[2020-09-02 20:00] VITALS: BP 124/59; O2SAT 93
[2020-09-02 20:08] LABS: APPEARANCE, URINE CLEAR (CLEAR); BACTERIA, URINE AUTO NEGATIVE (NEGATIVE); BILIRUBIN, URINE AUTO NEGATIVE (NEGATIVE); BLOOD, URINE BLOOD 1+ (NEGATIVE); COLOR, URINE YELLOW (YELLOW); GLUCOSE, URINE (UA) AUTO NEGATIVE (NEGATIVE); KETONE, URINE AUTO NEGATIVE (NEGATIVE); LEUKOCYTE ESTERASE, URINE AUTO TRACE (NEGATIVE); NITRITE, URINE AUTO NEGATIVE (NEGATIVE); PROTEIN, URINE AUTO 1+ mg/dL (NEGATIVE); RBC, URINE AUTO 34 /HPF (0-3); SPECIFIC GRAVITY URINE AUTO 1.013 (1.002-1.035); SQUAMOUS EPITHELIAL CELL UR AU 0 /HPF (0-6); UROBILINOGEN, URINE AUTO 0.2 mg/dL (0.0-2.0); WBC, URINE AUTO 27 /HPF (0-3)
[2020-09-02] MEDS: LEVEMIR (INSULIN DETEMIR) 1 UNITS/0.01ML SC SCH (20:59)
[2020-09-02] MEDS: bisoproloL fumarate 10 MG TAB PO SCH (21:35)
[2020-09-02] MEDS: ACETAMINOPHEN TAB 650MG DOSE (2X325MG) PO PRN (21:36)
[2020-09-02] MEDS: MIRTAZAPINE 15 MG TAB PO SCH (21:36)
[2020-09-02] MEDS: TAMSULOSIN 0.4 MG CAP PO SCH (21:36)
[2020-09-02] MEDS: ATORVASTATIN 20 MG TAB PO SCH (21:36)
[2020-09-02 22:14] LABS: FERRITIN 414 NG/ML (26-388); LDH LACTATE DEHYDROGENASE 227 U/L (87-241); NT-PRO BNP 217 PG/ML (<450)
[2020-09-03] VITALS: O2SAT 91
[2020-09-03 04:00] VITALS: BP 138/64; O2SAT 93
[2020-09-03] MEDS: ALBUTEROL 90 MCG/ACT 8GM HFA INHALER INH SCH ×6 (04:42→23:48)
[2020-09-03] MEDS: LEVOTHYROXINE 125MCG TABLET (0.125MG) PO SCH (05:58)
[2020-09-03] MEDS: VENLAFAXINE 37.5 MG TAB PO SCH ×2 (08:19→23:49)
[2020-09-03] MEDS: HumaLOG INSULIN (NovoLOG) PER UNIT SC SCH ×4 (08:20→22:12)
[2020-09-03] MEDS: FINASTERIDE 5 MG TAB PO SCH (08:20)
[2020-09-03] MEDS: GABAPENTIN 100 MG CAP PO SCH ×2 (08:20→23:48)
[2020-09-03] MEDS: buPROPion 75 MG TAB PO SCH (08:20)
[2020-09-03] MEDS: CYANOCOBALAMIN 500 MCG TAB PO SCH (08:20)
[2020-09-03] MEDS: ASPIRIN 81 MG ENTERIC TAB PO SCH (08:20)
[2020-09-03] MEDS: ARIPiprazole 2 MG TAB PO SCH (08:20)
[2020-09-03] MEDS: ENOXAPARIN 40MG/0.4ML SYRINGE (J1650 PER 10MG) SC SCH (08:21)
[2020-09-03] MEDS: FLUTICASONE PROP 0.05% NASAL SPRAY 16 GM (FLONASE) NARES SCH (08:21)
[2020-09-03 08:56] LABS: BASO % 0.4 % (0.0-1.0); EOS # 0.1 10^3/uL (0.0-0.5); EOS % 1.4 % (0.0-3.0); HEMOGLOBIN 13.5 g/dl (13.5-17.5); LYMPH # 0.9 10^3/uL (1.5-5.0); LYMPH % 12.2 % (24.0-44.0); MEAN CORPUSCULAR HEMOGLOBIN 28.1 pg (27.0-33.0); MEAN CORPUSCULAR HGB CONC 30.7 g/dl (32.0-36.5); MEAN CORPUSCULAR VOLUME 91.7 fl (80.0-96.0); MONO # 0.6 10^3/uL (0.0-0.8); MONO % 8.6 % (0.0-5.0); NEUTROPHILS # 5.4 10^3/uL (1.5-8.5); NEUTROPHILS % 76.5 % (36.0-66.0); PLATELET COUNT, AUTOMATED 251 10^3/uL (150-450)
[2020-09-03 09:23] LABS: INR 1.08; PROTHROMBIN TIME 14.3 SECONDS (12.5-14.3)
[2020-09-03 09:24] LABS: PARTIAL THROMBOPLASTIN TIME 26.5 SECONDS (24.2-38.5)
[2020-09-03 09:27] LABS: D-DIMER QUANT 930.46 ng/ml (<500)
[2020-09-03 09:38] LABS: ALBUMIN 2.6 GM/DL (3.2-5.2); BILIRUBIN,DIRECT 0.2 MG/DL (0.0-0.2); BILIRUBIN,TOTAL 0.7 MG/DL (0.2-1.0); C REACTIVE PROTEIN QUANTITATIV 2.26 MG/DL (0.00-0.30); CALCIUM LEVEL 8.6 MG/DL (8.8-10.2); CREATININE FOR GFR 1.27 MG/DL (0.70-1.30); GLOMERULAR FILTRATION RATE 58.5 (>42); MAGNESIUM LEVEL 2.2 MG/DL (1.8-2.4); POTASSIUM SERUM 4.3 MEQ/L (3.5-5.1); TOTAL PROTEIN 5.7 GM/DL (6.4-8.2)
[2020-09-03 12:00] VITALS: BP 118/56
--- NOTE | 2020-09-03 15:09 | IPNPDOC ---
Text Note Date of Service The patient was seen on 09/03/20. NOTE SUBJECTIVE: -No acute issues overnight -Denies any ongoing pain, SOB, chest pain, palpitations PHYSICAL EXAMINATION: VITAL SIGNS: see below GENERAL APPEARANCE: No distress. Lying in bed, awake, alert HEENT: Sparse, thinned hair, anicteric, EOMI, MMM Neck: No JVD, thyromegaly, cervical lymphadenopathy. CARDIOVASCULAR: S1, S2, irregularly irregular, not tachycardic LUNGS: Diminished clear to auscultation. No wheezing, rales or rhonchi ABDOMEN: Soft nontender nondistended positive bowel sounds 4 quadrants EXTREMITIES: No pitting edema NEURO: AOx2 to self and place, not time. Speech is clear, moving all extremities PSYCH: AOx2 LABORATORY DATA: Reviewed. IMAGING: SEE BELOW MICROBIOLOGY: Please see below. ASSESSMENT/PLAN: 79M [facility] assisted-living resident Covid 19 positive from August 23 with past medical history of A. fib, diabetes, chronic kidney disease stage III, chronic dementia, dyslipidemia, hypertension, hypothyroidism and anxiety who was admitted for acute encephalopathy. Acute encephalopathy: likely metabolic 2/2 covid-19 infection. Doing much better. -UA++ without bacteria and UCx negative. Will recheck with straight cath -No empiric antibiotics -CT of the head was negative for acute pathology -Ammonia level was normal -Normal ABG -No new medications or recent changes in his home meds -Unimpressive inflammatory markers at admission -Chest x-ray atelectasis, no infiltrate or consolidation -TSH wnl COVID -19 infection with mild hypoxemia -f/u inflammatory markers per protocol -Contact and droplet precautions -Procalcitonin wnl -supplemental O2 DM type 2 -consistent carbohydrate renal diet -Fingersticks every before meals at bedtime with insulin sliding scale per protocol and coverage Atrial fibrillation, not on anticoagulation -At risk for CVA, but CT head was negative -Rate controlled Dementia -Chronic -According to [facility] staff, Patient is altered and is usually conversant and appropriate despite having chronic dementia CKD 3 -At baseline creatinine -Avoid nephrotoxins -Renally dose all medications Dyslipidemia -Chronic Hypertension -Stable. Resume home meds Hypothyroidism -cont levothyroxine Anxiety/depression -No acute complaints or symptoms DVT prophylaxis. Lovenox Dispo: 4 main, PT/OT. VS,Fishbone, I+O VS, Fishbone, I+O Laboratory Tests 09/03/20 07:56 Vital Signs Date Time Temp Pulse Resp B/P (MAP) Pulse Ox O2 Delivery O2 Flow Rate FiO2 09/03/20 12:00 97.4 57 20 118/56 (76) Nasal Cannula 3.0 09/03/20 04:00 93 I&O- Last 24 Hours up to 6 AM 09/03/20 06:00 Intake Total 520 ml Output Total 100 ml Balance 420 ml HARINI JOVEL MD Sep 03, 2020 15:09
[2020-09-03 22:00] VITALS: BP 136/63
[2020-09-03 23:46] VITALS: BP 122/58
[2020-09-03] MEDS: MIRTAZAPINE 15 MG TAB PO SCH (23:47)
[2020-09-03] MEDS: TAMSULOSIN 0.4 MG CAP PO SCH (23:48)
[2020-09-03] MEDS: ATORVASTATIN 20 MG TAB PO SCH (23:49)
[2020-09-03] MEDS: bisoproloL fumarate 10 MG TAB PO SCH (23:49)
[2020-09-04] MEDS: LEVEMIR (INSULIN DETEMIR) 1 UNITS/0.01ML SC SCH ×2 (00:07→21:00)
[2020-09-04] MEDS: ALBUTEROL 90 MCG/ACT 8GM HFA INHALER INH SCH ×6 (03:54→23:31)
[2020-09-04 05:38] VITALS: BP 125/56
[2020-09-04] MEDS: LEVOTHYROXINE 125MCG TABLET (0.125MG) PO SCH (06:13)
[2020-09-04] MEDS: HumaLOG INSULIN (NovoLOG) PER UNIT SC SCH ×4 (07:17→21:00)
[2020-09-04] MEDS: buPROPion 75 MG TAB PO SCH (07:58)
[2020-09-04] MEDS: GABAPENTIN 100 MG CAP PO SCH ×2 (07:58→21:16)
[2020-09-04] MEDS: FLUTICASONE PROP 0.05% NASAL SPRAY 16 GM (FLONASE) NARES SCH (07:58)
[2020-09-04] MEDS: FINASTERIDE 5 MG TAB PO SCH (07:58)
[2020-09-04] MEDS: CYANOCOBALAMIN 500 MCG TAB PO SCH (07:59)
[2020-09-04] MEDS: VENLAFAXINE 37.5 MG TAB PO SCH ×2 (07:59→21:18)
[2020-09-04] MEDS: ARIPiprazole 2 MG TAB PO SCH (07:59)
[2020-09-04] MEDS: ASPIRIN 81 MG ENTERIC TAB PO SCH (07:59)
[2020-09-04] MEDS: ENOXAPARIN 40MG/0.4ML SYRINGE (J1650 PER 10MG) SC SCH (08:00)
[2020-09-04 09:08] LABS: BASO % 0.5 % (0.0-1.0); EOS # 0.1 10^3/uL (0.0-0.5); EOS % 1.5 % (0.0-3.0); HEMATOCRIT 44.6 % (42.0-52.0); HEMOGLOBIN 14.2 g/dl (13.5-17.5); LYMPH # 0.9 10^3/uL (1.5-5.0); LYMPH % 11.6 % (24.0-44.0); MEAN CORPUSCULAR HEMOGLOBIN 28.9 pg (27.0-33.0); MEAN CORPUSCULAR HGB CONC 31.8 g/dl (32.0-36.5); MEAN CORPUSCULAR VOLUME 90.8 fl (80.0-96.0); MONO # 0.8 10^3/uL (0.0-0.8); MONO % 9.6 % (0.0-5.0); NEUTROPHILS # 6.1 10^3/uL (1.5-8.5); NEUTROPHILS % 76.2 % (36.0-66.0); PLATELET COUNT, AUTOMATED 233 10^3/uL (150-450); RED BLOOD COUNT 4.91 10^6/uL (4.30-6.10)
[2020-09-04 09:24] LABS: INR 1.14; PROTHROMBIN TIME 14.9 SECONDS (12.5-14.3)
[2020-09-04 09:25] LABS: PARTIAL THROMBOPLASTIN TIME 31.4 SECONDS (24.2-38.5)
[2020-09-04 09:27] LABS: D-DIMER QUANT 897.18 ng/ml (<500)
[2020-09-04 09:35] LABS: CALCIUM LEVEL 8.4 MG/DL (8.8-10.2); CREATININE FOR GFR 1.39 MG/DL (0.70-1.30); GLOMERULAR FILTRATION RATE 52.7 (>42); POTASSIUM SERUM 4.3 MEQ/L (3.5-5.1)
[2020-09-04 09:52] LABS: ALBUMIN 2.7 GM/DL (3.2-5.2); BILIRUBIN,DIRECT 0.3 MG/DL (0.0-0.2); BILIRUBIN,TOTAL 0.8 MG/DL (0.2-1.0); C REACTIVE PROTEIN QUANTITATIV 2.47 MG/DL (0.00-0.30); MAGNESIUM LEVEL 2.2 MG/DL (1.8-2.4)
[2020-09-04 12:52] VITALS: BP 117/63
--- NOTE | 2020-09-04 13:16 | IPNPDOC ---
Text Note Date of Service The patient was seen on 09/04/20. NOTE Subjective: Patient is a 79-year-old male from [facility] with a hisotory of COVID19 (08/23/2020), A.fib, DM2, CKD3, Dementia, DLP, HTN, Hypothyroidism, Anxiety / Depression who presented to [facility] for confusion. Patient was seen and examined at the bedside. Patient is oriented to person, place. He is seen sitting up in bed eating breakfast. He denies any chest pain, cough, shortness of breath, pain, diarrhea, or urinary discomfort. Objective: Vitals (See below) General: Lying in bed, no acute distress, comfortable, AAOx2 (not to time) HEENT: NC, AT CVS: RRR, +S1S2 Lungs: Fair air entry b/l, -w/r/r Abdomen: Soft, ND, NT Extremities: - Edema, - Calf tenderness Imaging: CT head 08/31: Age related atrophy and microvascular ischemic changes. No acute intracranial hemorrhage, infarction, or mass/mass effect. CXR 08/31: Chronic stable changes. Cannot exclude subtle superimposed left lower lobe atelectasis. Assessment and plan: s/p Acute encephalopathy - Patient is hemodynamically stable and afebrile - TSH noted - s/p Leukocytosis - UA reviewed; Urine culture 08/31: Negative - CT head negative - CXR without infiltrates - c/w PT and OT COVID19 infection with mild hypoxemia - c/w supportive care - c/w PT and OT IDDM2 with Neuropathy - c/w Gabapentin - c/w ISS and Levemir Atrial fibrillation, not on anticoagulation - Rate well controlled - c/w Bisoprolol Chronic Dementia - c/w PT and OT - Will transition to skilled area 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
[2020-09-04 13:23] VITALS: O2SAT 93
[2020-09-04 14:00] VITALS: BP 124/71
[2020-09-04] MEDS: ATORVASTATIN 20 MG TAB PO SCH (21:16)
[2020-09-04] MEDS: TAMSULOSIN 0.4 MG CAP PO SCH (21:16)
[2020-09-04] MEDS: MIRTAZAPINE 15 MG TAB PO SCH (21:16)
[2020-09-04 21:20] VITALS: BP 114/70
[2020-09-04] MEDS: bisoproloL fumarate 10 MG TAB PO SCH (21:20)
[2020-09-05] MEDS: ALBUTEROL 90 MCG/ACT 8GM HFA INHALER INH SCH ×2 (04:00→07:05)
[2020-09-05 06:00] VITALS: BP 117/70
[2020-09-05] MEDS: LEVOTHYROXINE 125MCG TABLET (0.125MG) PO SCH (06:39)
[2020-09-05] MEDS: VENLAFAXINE 37.5 MG TAB PO SCH (08:51)
[2020-09-05] MEDS: buPROPion 75 MG TAB PO SCH (08:51)
[2020-09-05] MEDS: HumaLOG INSULIN (NovoLOG) PER UNIT SC SCH (08:51)
[2020-09-05] MEDS: ASPIRIN 81 MG ENTERIC TAB PO SCH (08:51)
[2020-09-05] MEDS: CYANOCOBALAMIN 500 MCG TAB PO SCH (08:52)
[2020-09-05] MEDS: FLUTICASONE PROP 0.05% NASAL SPRAY 16 GM (FLONASE) NARES SCH (08:52)
[2020-09-05] MEDS: FINASTERIDE 5 MG TAB PO SCH (08:52)
[2020-09-05] MEDS: ENOXAPARIN 40MG/0.4ML SYRINGE (J1650 PER 10MG) SC SCH (08:52)
[2020-09-05] MEDS: GABAPENTIN 100 MG CAP PO SCH (08:52)
[2020-09-05] MEDS: ARIPiprazole 2 MG TAB PO SCH (09:00)
--- NOTE | 2020-09-05 11:47 | DS.PDOC ---
Discharge Summary General Date of Admission Aug 31, 2020 at 11:55 Date of Discharge 09/05/2020 Discharge Summary PROCEDURES PERFORMED DURING STAY: [None]. ADMITTING DIAGNOSES / DISCHARGE DIAGNOSES: s/p Acute encephalopathy COVID19 infection with mild hypoxemia IDDM2 with Neuropathy Atrial fibrillation, not on anticoagulation Chronic Dementia / Deconditioning CKD3 DLP HTN Hypothyroidism Anxiety/depression BPH DVT prophylaxis COMPLICATIONS/CHIEF COMPLAINT: Confusion HISTORY OF PRESENT ILLNESS: Patient is a 79-year-old male from [facility] with a hisotory of COVID19 (08/23/2020), A.fib, DM2, CKD3, Dementia, DLP, HTN, Hypothyroidism, Anxiety / Depression who presented to [facility] for confusion. HOSPITAL COURSE: s/p Acute encephalopathy - Patient is hemodynamically stable and afebrile - TSH noted - s/p Leukocytosis - UA reviewed; Urine culture 08/31: Negative - CT head negative - CXR without infiltrates - c/w PT and OT COVID19 infection with mild hypoxemia - c/w supportive care - c/w PT and OT IDDM2 with Neuropathy - c/w Gabapentin - c/w ISS and Levemir Atrial fibrillation, not on anticoagulation - Rate well controlled - c/w Bisoprolol Chronic Dementia / Deconditioning - c/w PT and OT and based on their recommendations will be transitioned to skilled facility for continued help - Will transition to skilled area of [facility] until he can be transitioned back to [facility] CKD3 - Cr baseline of 1.3-1.4 - Will avoid nephrotoxins medications DLP - c/w Atorvastatin HTN - c/w Bisoprolol Hypothyroidism - c/w levothyroxine Anxiety/depression - c/w Aripiprazole, Bupropion, Mirtazapine, Venlafaxine BPH - c/w Finasteride and Tamsulosin DVT prophylaxis - c/w Lovenox DISCHARGE MEDICATIONS: Please see below. ALLERGIES: Please see below. PHYSICAL EXAMINATION ON DISCHARGE: Vitals (See below) General: Lying in bed, no acute distress, comfortable, AAOx2 (not to time) HEENT: NC, AT CVS: +S1S2 Lungs: Fair air entry b/l, no visual wheezing, rhonchi or rales Abdomen: Soft, non-distended, non-tender Extremities: No evidence of edema, - Calf tenderness LABORATORY DATA: Please see below. IMAGING: CT head 08/31: Age related atrophy and microvascular ischemic changes. No acute intracranial hemorrhage, infarction, or mass/mass effect. CXR 08/31: Chronic stable changes. Cannot exclude subtle superimposed left lower lobe atelectasis. ACTIVITY: [As tolerated]. DISCHARGE PLAN: Follow-up with primary care provider within the next 7 days Remain compliant with treatment plan and medications Return to the ER if you experience any problems DISPOSITION: [facility]. DISCHARGE CONDITION: [Stable]. TIME SPENT ON DISCHARGE: 35 minutes. Vital Signs/I&Os Vital Signs Date Time Temp Pulse Resp B/P (MAP) Pulse Ox O2 Delivery O2 Flow Rate FiO2 09/05/20 09:00 2.0 09/05/20 06:00 97.3 50 20 117/70 (86) 99 Nasal Cannula I&O- Last 24 Hours up to 6 AM 09/05/20 06:00 Intake Total 880 ml Output Total 100 ml Balance 780 ml Laboratory Data Labs 24H Laboratory Tests 2 09/04/20 11:59: Bedside Glucose (Misc Panel) 154H 09/04/20 16:45: Bedside Glucose (Misc Panel) 106 09/04/20 19:46: Bedside Glucose (Misc Panel) 99 09/05/20 06:25: Bedside Glucose (Misc Panel) 119H FSBS Laboratory Tests Test 09/04/20 11:59 09/04/20 16:45 09/04/20 19:46 09/05/20 06:25 Range/Units Bedside Glucose (Misc Panel) 154 106 99 119 83-110 MG/DL Microbiology Microbiology 08/31/20 Urine Culture - Final, Complete Discharge Medications Scheduled Acetaminophen/Diphenhydramine (Acetaminophen Pm Caplet) 1 Each Tablet, 1 TAB PO QHS, (Reported) FOR 5 DAYS, FINISH DATE 09/02/20 Albuterol Sulfate (Proair Hfa) 8.5 Gm Hfa.aer.ad, 2 PUFF INH Q4H, (Reported) 0100/0500/0900/1300/1700/2100 Aripiprazole (Abilify) 2 Mg Tab, 2 MG PO DAILY, (Reported) Ascorbic Acid (Vitamin C) 500 Mg Tab.chew, 500 MG PO DAILY, (Reported) Aspirin (Aspirin EC) 81 Mg Tab, 81 MG PO DAILY, (Reported) Atorvastatin Calcium (Atorvastatin Calcium) 40 Mg Tab, 40 MG PO QHS, (Reported) Bisoprolol Fumarate (Bisoprolol Fumarate) 10 Mg Tablet, 10 MG PO QHS, (Reported) Bupropion HCl (Bupropion HCl) 75 Mg Tablet, 75 MG PO DAILY, (Reported) Cholecalciferol (Vitamin D3) (Vitamin D3) 50 Mcg Capsule, 50 MCG PO DAILY, (Reported) Cyanocobalamin (Vitamin B-12) (Vitamin B-12) 1,000 Mcg Tab, 1,000 MCG PO DAILY, (Reported) Ergocalciferol (Vitamin D2) (Vitamin D2) 50,000 Units Cap, 50,000 UNITS PO QWEEK, (Reported) MONDAYS Finasteride (Finasteride) 5 Mg Tablet, 5 MG PO DAILY, (Reported) Fluticasone Propionate (Flonase Allergy Relief) 9.9 Ml [place].susp, 2 SPRAY NARES DAILY, (Reported) Gabapentin (Gabapentin) 100 Mg Capsule, 200 MG PO BID, (Reported) Insulin Aspart Protamine/Aspar (Novolog Mix 70-30 Vial) 1 Units/0.01 Ml Susp, 36 UNITS SC DAILY, (Reported) Insulin Glargine,Hum.rec.anlog (Basaglar Kwikpen U-100) 100 Unit/1 Ml Insuln.pen, 10 UNIT SC QHS, (Reported) Levothyroxine Sodium (Levothyroxine Sodium) 125 Mcg Tablet, 125 MCG PO QAM, (Reported) Mirtazapine (Remeron) 30 Mg Tablet, 30 MG PO QHS, (Reported) Tamsulosin HCl (Flomax) 0.4 Mg Capsule, 0.4 MG PO QPM, (Reported) Venlafaxine HCl (Venlafaxine HCl) 75 Mg Tab, 150 MG PO DAILY, (Reported) Venlafaxine HCl (Venlafaxine HCl) 75 Mg Tablet, 75 MG PO QHS, (Reported) Scheduled PRN Acetaminophen (Acetaminophen) 325 Mg Tab, 650 MG PO Q4H PRN for PAIN / FEVER, (Reported) Albuterol Sulfate (Proair Hfa) 8.5 Gm Hfa.aer.ad, 2 PUFF INH Q4H PRN for SOB/WHEEZING, (Reported) Loperamide HCl (Anti-Diarrheal) 2 Mg Tablet, 2 MG PO QID PRN for DIARRHEA, (Reported) Magnesium Hydroxide (Milk of Magnesia) 400 Mg/5 Ml Oral.susp, 2,400 MG PO DAILY PRN for CONSTIPATION, (Reported) Allergies Coded Allergies: No Known Allergies (Unverified , 03/03/03) SAHRA SMYTH MD Sep 05, 2020 11:46
== END 2020-09-05 11:14 | DRG 177 ==
LOC: EDBD 08:57 → M ED 08:57 → M ED INP 11:55 → M 4MAIN 16:20 → M MSPAV 09-04 13:06
PROVIDERS: ADMIT General Practice; ATTEND Internal Medicine
DX: U07.1 COVID-19 (principal); G93.41 Metabolic encephalopathy; N18.30 Chronic kidney disease, stage 3 unspecified; F03.90 Unspecified dementia, unspecified severity, without behavioral disturbance, psychotic disturbance, mood disturbance, and anxiety; I12.9 Hypertensive chronic kidney disease with stage 1 through stage 4 chronic kidney disease, or unspecified chronic kidney disease; E11.40 Type 2 diabetes mellitus with diabetic neuropathy, unspecified; F41.9 Anxiety disorder, unspecified; F32.9 Major depressive disorder, single episode, unspecified; N40.0 Benign prostatic hyperplasia without lower urinary tract symptoms; I48.91 Unspecified atrial fibrillation; E03.9 Hypothyroidism, unspecified; Z79.899 Other long term (current) drug therapy; Z79.4 Long term (current) use of insulin; E78.5 Hyperlipidemia, unspecified

== ENCOUNTER → 2020-09-03 | Outpatient (REF) | payer MEDICARE, MEDICAID ==
[~2020-09-03] MED LIST changes: +ACET25TA12 PO; +ANTI2TAB17 PO; +BASA100I SC; +BISO10TA13 PO; +BUPR75TA69 PO; +C-50CHW5 PO; +FINA5TAB2 PO; +FLOM0.4C39 PO; +FLON1SPR NARES; +GABA-1171 PO; +LEVO125T4 PO; +MILKSUS7 PO; +MIRT-60 PO; +PROAAER10 INH; +VITA200044 PO; +VITA50005 PO
== END ==
LOC: CANPREREF
PROVIDERS: ATTEND Internal Medicine
DX: Z53.9 Procedure and treatment not carried out, unspecified reason (principal)

== ENCOUNTER → 2020-09-06 | Outpatient (REF) | LOC: SKLAB2 12:01 | DX: E03.9 Hypothyroidism, unspecified (principal) ==

== ENCOUNTER → 2020-09-10 | Outpatient (REF) ==
[2020-09-10 13:18] LABS: HEMATOCRIT 44.8 % (42.0-52.0); HEMOGLOBIN 14.2 g/dl (13.5-17.5); MEAN CORPUSCULAR HEMOGLOBIN 28.9 pg (27.0-33.0); MEAN CORPUSCULAR HGB CONC 31.7 g/dl (32.0-36.5); MEAN CORPUSCULAR VOLUME 91.2 fl (80.0-96.0); PLATELET COUNT, AUTOMATED 195 10^3/uL (150-450); RED BLOOD COUNT 4.91 10^6/uL (4.30-6.10); WHITE BLOOD COUNT 7.3 10^3/uL (4.0-10.0)
[2020-09-10 13:43] LABS: BILIRUBIN,TOTAL 0.6 MG/DL (0.2-1.0); CALCIUM LEVEL 9.2 MG/DL (8.8-10.2); CREATININE FOR GFR 1.56 MG/DL (0.70-1.30); GLOMERULAR FILTRATION RATE 46.2 (>42); POTASSIUM SERUM 4.5 MEQ/L (3.5-5.1); TOTAL PROTEIN 6.4 GM/DL (6.4-8.2)
--- NOTE | 2020-09-10 15:58 | REP ---
INDICATION: COPD. COMPARISON: Comparison radiographs are from April 11, 2018.. TECHNIQUE: Supine KUB: Two views. FINDINGS: There is a surgical clip in the right upper quadrant and there are surgical clips noted bilaterally in the pelvis unchanged. Gallstones are again noted the right upper quadrant with 2 large adjacent peripherally calcified stones measuring up to 2.3 cm in diameter. Psoas margins and flank stripes are intact. Vascular calcifications noted. There is an enterostomy ring visible in the left pelvis. The bowel gas pattern is unremarkable with air and stool in a nondistended colon and air in the stomach. There are 1 or 2 loops of nonspecific central abdominal small bowel. Bowel gas pattern is improved compared with the prior study from 2018. No evidence of obstruction or significant ileus. No mass or pathologic calcification is seen. IMPRESSION: Left lower quadrant enterostomy. Surgical clips in the right and left abdomen. Unremarkable gas pattern. Cholelithiasis and vascular calcification. <Electronically signed by Los López > 09/10/20 [id number]
--- NOTE | 2020-09-10 15:59 | REP ---
INDICATION: COPD. COMPARISON: Comparison portable chest x-ray 31 August 2020.. TECHNIQUE: Upright AP portable radiograph. FINDINGS: There is a diffuse bibasilar interstitial fibrosis pattern in the lung durant unchanged. The prior study showed increased markings in the left base and these appear improved compared with the 31 August 2020 study. No new infiltrate is seen. Heart is not enlarged. Aorta is tortuous. IMPRESSION: Improved lung markings left base. Bibasilar interstitial fibrosis pattern again noted. No acute infiltrates seen. <Electronically signed by Los López > 09/10/20 [id number]
== END ==
LOC: SKLAB2 10:21
DX: E86.0 Dehydration (principal); J84.10 Pulmonary fibrosis, unspecified; Z93.3 Colostomy status

== ENCOUNTER → 2020-09-11 | Outpatient (REF) ==
[2020-09-11 10:44] LABS: BLOOD UREA NITROGEN 23 MG/DL (7-18); CALCIUM LEVEL 8.7 MG/DL (8.8-10.2); CARBON DIOXIDE LEVEL 26 MEQ/L (21-32); CHLORIDE LEVEL 110 MEQ/L (98-107); CREATININE FOR GFR 1.22 MG/DL (0.70-1.30); GLOMERULAR FILTRATION RATE > 60.0 (>42); GLUCOSE, FASTING 131 MG/DL (70-100); POTASSIUM SERUM 4.1 MEQ/L (3.5-5.1); SODIUM LEVEL 142 MEQ/L (136-145)
== END ==
LOC: SKLAB2 11:50
DX: E86.0 Dehydration (principal)

== ENCOUNTER → 2020-09-12 | Outpatient (REF) | LOC: SKLAB2 11:48 | PROVIDERS: ATTEND Internal Medicine | DX: Z53.9 Procedure and treatment not carried out, unspecified reason (principal) ==

== ENCOUNTER → 2020-09-12 | Outpatient (REF) ==
[2020-09-12 08:17] LABS: BLOOD UREA NITROGEN 17 MG/DL (7-18); CALCIUM LEVEL 8.9 MG/DL (8.8-10.2); CARBON DIOXIDE LEVEL 26 MEQ/L (21-32); CHLORIDE LEVEL 110 MEQ/L (98-107); CREATININE FOR GFR 1.13 MG/DL (0.70-1.30); GLOMERULAR FILTRATION RATE > 60.0 (>42); GLUCOSE, FASTING 118 MG/DL (70-100); POTASSIUM SERUM 3.8 MEQ/L (3.5-5.1); SODIUM LEVEL 142 MEQ/L (136-145)
== END ==
LOC: SKLAB7 11:48
DX: E86.0 Dehydration (principal)

== ENCOUNTER → 2020-09-13 | Outpatient (REF) ==
[2020-09-13 09:28] LABS: BLOOD UREA NITROGEN 19 MG/DL (7-18); CARBON DIOXIDE LEVEL 25 MEQ/L (21-32); CHLORIDE LEVEL 108 MEQ/L (98-107); CREATININE FOR GFR 1.23 MG/DL (0.70-1.30); GLOMERULAR FILTRATION RATE > 60.0 (>42); GLUCOSE, FASTING 123 MG/DL (70-100); POTASSIUM SERUM 4.3 MEQ/L (3.5-5.1); SODIUM LEVEL 143 MEQ/L (136-145)
== END ==
LOC: SKLAB4 08:00
DX: E86.0 Dehydration (principal)

== ENCOUNTER → 2020-09-19 | Outpatient (REF) | LOC: SKLAB4 06:36 | PROVIDERS: ATTEND Internal Medicine | DX: Z53.9 Procedure and treatment not carried out, unspecified reason (principal) ==

== ENCOUNTER → 2020-09-26 | Outpatient (REF) | LOC: SKLAB4 07:13 | PROVIDERS: ATTEND Internal Medicine | DX: Z53.9 Procedure and treatment not carried out, unspecified reason (principal) ==

== ENCOUNTER → 2020-09-27 | Outpatient (REF) ==
[2020-09-27 13:37] LABS: HEMOGLOBIN A1c 7.1 %
== END ==
LOC: SKLAB4 10:41
DX: D64.9 Anemia, unspecified (principal)

== ENCOUNTER → 2020-10-09 | Outpatient (REF) ==
[2020-10-09 11:30] LABS: CHOLESTEROL RISK RATIO 3.6 (<5)
== END ==
LOC: SKLAB4 11:01
DX: E78.5 Hyperlipidemia, unspecified (principal)

== ENCOUNTER → 2020-10-31 | Outpatient (REF) | payer MEDICARE, MEDICAID ==
[~2020-10-31] MED LIST changes: +BUPR150T12 PO; -BUPR150T4 PO
== END ==
LOC: SKLAB4 07:06
PROVIDERS: ATTEND Internal Medicine
DX: Z20.822 Contact with and (suspected) exposure to COVID-19 (principal)

== ENCOUNTER → 2020-11-07 | Outpatient (REF) | payer MEDICARE, MEDICAID | LOC: CANPREREF → SKLAB4 07:08 | PROVIDERS: ATTEND Internal Medicine | DX: Z53.8 Procedure and treatment not carried out for other reasons (principal) ==

== ENCOUNTER → 2020-11-12 | Outpatient (REF) | payer MEDICARE, MEDICAID ==
[2020-11-12 16:32] LABS: BLOOD UREA NITROGEN 23 MG/DL (7-18); CALCIUM LEVEL 9.3 MG/DL (8.8-10.2); CARBON DIOXIDE LEVEL 26 MEQ/L (21-32); CHLORIDE LEVEL 104 MEQ/L (98-107); CREATININE FOR GFR 1.23 MG/DL (0.70-1.30); GLOMERULAR FILTRATION RATE > 60.0 (>42); GLUCOSE, FASTING 179 MG/DL (70-100); MAGNESIUM LEVEL 2.1 MG/DL (1.8-2.4); POTASSIUM SERUM 3.3 MEQ/L (3.5-5.1); SODIUM LEVEL 138 MEQ/L (136-145)
== END ==
LOC: SKLAB4 12:16
DX: R25.2 Cramp and spasm (principal)

== ENCOUNTER → 2020-11-20 | Outpatient (REF) | payer MEDICARE, MEDICAID | LOC: SKLAB4 11:21 | DX: Z53.8 Procedure and treatment not carried out for other reasons (principal) ==

== ENCOUNTER → 2020-11-29 | Outpatient (REF) | payer MEDICARE, MEDICAID | LOC: SKLAB4 10:12 | DX: E87.6 Hypokalemia (principal) ==

== ENCOUNTER → 2021-01-17 | Outpatient (REF) | payer MEDICARE, MEDICAID ==
[2021-01-17 10:02] LABS: HEMATOCRIT 45.7 % (42.0-52.0); HEMOGLOBIN 14.5 g/dl (13.5-17.5); MEAN CORPUSCULAR HEMOGLOBIN 29.6 pg (27.0-33.0); MEAN CORPUSCULAR HGB CONC 31.7 g/dl (32.0-36.5); MEAN CORPUSCULAR VOLUME 93.3 fl (80.0-96.0); PLATELET COUNT, AUTOMATED 213 10^3/uL (150-450); WHITE BLOOD COUNT 8.7 10^3/uL (4.0-10.0)
[2021-01-17 10:37] LABS: BILIRUBIN,TOTAL 0.3 MG/DL (0.2-1.0); CALCIUM LEVEL 8.8 MG/DL (8.8-10.2); CREATININE FOR GFR 1.27 MG/DL (0.70-1.30); GLOMERULAR FILTRATION RATE 58.4 (>42); POTASSIUM SERUM 4.4 MEQ/L (3.5-5.1); THYROID STIMULATING HORMONE 2.09 uIU/ML (0.358-3.740); TOTAL PROTEIN 6.3 GM/DL (6.4-8.2)
== END ==
LOC: SKLAB4 08:26
DX: E03.9 Hypothyroidism, unspecified (principal)

== ENCOUNTER → 2021-03-12 | Outpatient (REF) | payer MEDICARE, MEDICAID ==
[~2021-03-12] MED LIST changes: +ERGO500029 PO; -VITA50005 PO
[2021-03-12 09:02] LABS: HEMATOCRIT 43.1 % (42.0-52.0); HEMOGLOBIN 14.4 g/dl (13.5-17.5); MEAN CORPUSCULAR HEMOGLOBIN 30.5 pg (27.0-33.0); MEAN CORPUSCULAR HGB CONC 33.4 g/dl (32.0-36.5); MEAN CORPUSCULAR VOLUME 91.3 fl (80.0-96.0); PLATELET COUNT, AUTOMATED 218 10^3/uL (150-450); RED BLOOD COUNT 4.72 10^6/uL (4.30-6.10); WHITE BLOOD COUNT 9.4 10^3/uL (4.0-10.0)
[2021-03-12 10:03] LABS: ALBUMIN 2.9 GM/DL (3.2-5.2); BILIRUBIN,TOTAL 0.3 MG/DL (0.2-1.0); CALCIUM LEVEL 8.7 MG/DL (8.8-10.2); CHOLESTEROL RISK RATIO 3.162 (<5); CREATININE FOR GFR 1.33 MG/DL (0.70-1.30); GLOMERULAR FILTRATION RATE 55.4 (>42); POTASSIUM SERUM 4.1 MEQ/L (3.5-5.1); THYROID STIMULATING HORMONE 4.29 uIU/ML (0.358-3.740)
== END ==
LOC: SKLAB4 12:54
DX: E11.9 Type 2 diabetes mellitus without complications (principal); E03.9 Hypothyroidism, unspecified; E78.5 Hyperlipidemia, unspecified

== ENCOUNTER → 2021-04-25 | Outpatient (REF) | payer MEDICARE, MEDICAID | LOC: SKLAB4 10:16 | PROVIDERS: ATTEND Neuromusculoskeletal Medicine & OMM | DX: E55.9 Vitamin D deficiency, unspecified (principal); Z53.8 Procedure and treatment not carried out for other reasons ==

== ENCOUNTER → 2021-05-14 | Outpatient (REF) | payer MEDICARE, MEDICAID ==
[2021-05-14 10:20] LABS: HEMOGLOBIN A1c 7.5 %
== END ==
LOC: SKLAB4 06:40
PROVIDERS: ATTEND Neuromusculoskeletal Medicine & OMM
DX: E11.9 Type 2 diabetes mellitus without complications (principal)

== ENCOUNTER → 2021-06-08 | Outpatient (REF) | payer MEDICARE, MEDICAID | LOC: SKLAB4 07:57 | PROVIDERS: ATTEND Neuromusculoskeletal Medicine & OMM | DX: Z20.822 Contact with and (suspected) exposure to COVID-19 (principal) ==

== ENCOUNTER → 2021-06-11 | Outpatient (REF) | payer MEDICARE, MEDICAID | LOC: SKLAB4 12:00 | PROVIDERS: ATTEND Neuromusculoskeletal Medicine & OMM | DX: Z20.822 Contact with and (suspected) exposure to COVID-19 (principal) ==

== ENCOUNTER → 2021-06-13 | Outpatient (REF) | payer MEDICARE, MEDICAID | LOC: SKLAB4 08:43 | PROVIDERS: ATTEND Internal Medicine | DX: Z20.822 Contact with and (suspected) exposure to COVID-19 (principal) ==

== ENCOUNTER → 2021-06-17 | Outpatient (REF) | payer MEDICARE, MEDICAID | LOC: SKLAB4 06:52 | PROVIDERS: ATTEND Internal Medicine | DX: Z20.822 Contact with and (suspected) exposure to COVID-19 (principal) ==

== ENCOUNTER → 2021-06-20 | Outpatient (REF) | payer MEDICARE, MEDICAID | LOC: SKLAB4 10:26 | PROVIDERS: ATTEND Internal Medicine | DX: Z20.822 Contact with and (suspected) exposure to COVID-19 (principal) ==

== ENCOUNTER → 2021-06-24 | Outpatient (REF) | payer MEDICARE, MEDICAID | LOC: SKLAB4 06:10 | PROVIDERS: ATTEND Internal Medicine | DX: Z20.822 Contact with and (suspected) exposure to COVID-19 (principal) ==

== ENCOUNTER → 2021-06-27 | Outpatient (REF) | payer MEDICARE, MEDICAID | LOC: SKLAB4 11:02 | PROVIDERS: ATTEND Neuromusculoskeletal Medicine & OMM | DX: Z20.822 Contact with and (suspected) exposure to COVID-19 (principal) ==

== ENCOUNTER → 2021-07-03 | Outpatient (REF) | payer MEDICARE, MEDICAID | LOC: SKLAB4 13:24 | PROVIDERS: ATTEND Neuromusculoskeletal Medicine & OMM | DX: Z20.822 Contact with and (suspected) exposure to COVID-19 (principal) ==

== ENCOUNTER → 2021-07-10 | Outpatient (REF) | payer MEDICARE, MEDICAID | LOC: SKLAB4 07:45 | PROVIDERS: ATTEND Neuromusculoskeletal Medicine & OMM | DX: Z20.822 Contact with and (suspected) exposure to COVID-19 (principal) ==

== ENCOUNTER → 2021-07-11 | Outpatient (REF) | payer MEDICARE, MEDICAID ==
[2021-07-11 11:02] LABS: CALCIUM LEVEL 8.7 MG/DL (8.8-10.2)
[2021-07-11 11:13] LABS: TOTAL 25(OH) VITAMIN D 44.8 NG/ML (30.0-100.0)
== END ==
LOC: SKLAB4 07:00
PROVIDERS: ATTEND Neuromusculoskeletal Medicine & OMM
DX: Z13.29 Encounter for screening for other suspected endocrine disorder (principal); Z79.899 Other long term (current) drug therapy

== ENCOUNTER → 2021-07-31 | Outpatient (REF) | payer MEDICARE, MEDICAID | LOC: SKLAB4 07:00 | PROVIDERS: ATTEND Neuromusculoskeletal Medicine & OMM | DX: Z20.822 Contact with and (suspected) exposure to COVID-19 (principal) ==

== ENCOUNTER → 2021-08-07 | Outpatient (REF) | payer MEDICARE, MEDICAID | LOC: SKLAB4 07:00 | PROVIDERS: ATTEND Neuromusculoskeletal Medicine & OMM | DX: Z20.822 Contact with and (suspected) exposure to COVID-19 (principal) ==

== ENCOUNTER → 2021-08-14 | Outpatient (REF) | payer MEDICARE, MEDICAID | LOC: SKLAB4 11:37 | PROVIDERS: ATTEND Neuromusculoskeletal Medicine & OMM | DX: Z20.822 Contact with and (suspected) exposure to COVID-19 (principal) ==

== ENCOUNTER → 2021-08-21 | Outpatient (REF) | payer MEDICARE, MEDICAID | LOC: SKLAB4 09:53 | PROVIDERS: ATTEND Neuromusculoskeletal Medicine & OMM | DX: Z20.822 Contact with and (suspected) exposure to COVID-19 (principal) ==

== ENCOUNTER → 2021-08-28 | Outpatient (REF) | payer MEDICARE, MEDICAID | LOC: SKLAB4 10:23 | PROVIDERS: ATTEND Neuromusculoskeletal Medicine & OMM | DX: Z20.822 Contact with and (suspected) exposure to COVID-19 (principal) ==

== ENCOUNTER → 2021-09-16 | Outpatient (REF) | payer MEDICARE, MEDICAID ==
[~2021-09-16] MED LIST changes: -FENO200C PO; +FENO200C19 PO
[2021-09-16 13:37] LABS: HEMATOCRIT 48.8 % (42.0-52.0); HEMOGLOBIN 15.7 g/dl (13.5-17.5); MEAN CORPUSCULAR HEMOGLOBIN 29.6 pg (27.0-33.0); MEAN CORPUSCULAR HGB CONC 32.2 g/dl (32.0-36.5); MEAN CORPUSCULAR VOLUME 91.9 fl (80.0-96.0); PLATELET COUNT, AUTOMATED 230 10^3/uL (150-450); RED BLOOD COUNT 5.31 10^6/uL (4.30-6.10)
[2021-09-16 14:07] LABS: ALBUMIN 2.9 GM/DL (3.2-5.2); BILIRUBIN,TOTAL 0.5 MG/DL (0.2-1.0); CREATININE FOR GFR 1.64 MG/DL (0.70-1.30); GLOMERULAR FILTRATION RATE 43.5 (>42); POTASSIUM SERUM 4.3 MEQ/L (3.5-5.1)
== END ==
LOC: SKLAB4 12:35
PROVIDERS: ATTEND Neuromusculoskeletal Medicine & OMM
DX: R11.2 Nausea with vomiting, unspecified (principal)

== ENCOUNTER → 2021-09-19 | Outpatient (REF) | payer MEDICARE, MEDICAID ==
[2021-09-19 10:14] LABS: HEMOGLOBIN 14.8 g/dl (13.5-17.5); MEAN CORPUSCULAR HEMOGLOBIN 29.5 pg (27.0-33.0); MEAN CORPUSCULAR HGB CONC 32.2 g/dl (32.0-36.5); MEAN CORPUSCULAR VOLUME 91.6 fl (80.0-96.0); PLATELET COUNT, AUTOMATED 200 10^3/uL (150-450); RED BLOOD COUNT 5.02 10^6/uL (4.30-6.10); WHITE BLOOD COUNT 9.9 10^3/uL (4.0-10.0)
[2021-09-19 10:35] LABS: BLOOD UREA NITROGEN 15 MG/DL (7-18); CALCIUM LEVEL 8.5 MG/DL (8.8-10.2); CARBON DIOXIDE LEVEL 25 MEQ/L (21-32); CHLORIDE LEVEL 106 MEQ/L (98-107); GLOMERULAR FILTRATION RATE > 60.0 (>42); GLUCOSE, FASTING 182 MG/DL (70-100); POTASSIUM SERUM 3.7 MEQ/L (3.5-5.1); SODIUM LEVEL 138 MEQ/L (136-145)
== END ==
LOC: SKLAB4 07:00
PROVIDERS: ATTEND Neuromusculoskeletal Medicine & OMM
DX: N18.9 Chronic kidney disease, unspecified (principal); I12.9 Hypertensive chronic kidney disease with stage 1 through stage 4 chronic kidney disease, or unspecified chronic kidney disease

== ENCOUNTER → 2021-10-05 | Outpatient (REF) | payer MEDICARE, MEDICAID ==
[~2021-10-05] MED LIST changes: +AMLO2.5T3 PO; +ATIV1TAB10 PO; +CLOB5CR TOP; +HYOS125TA PO; +INSUH10VL SC; +METF500T13 PO; +MORP1SOL5 PO; +OMEP-173 PO; +SENN1TAB41 PO; +TRUL0.5I SC
[2021-10-06 00:24] LABS: HEMATOCRIT 49.1 % (42.0-52.0); HEMOGLOBIN 16.6 g/dl (13.5-17.5); MEAN CORPUSCULAR HEMOGLOBIN 29.7 pg (27.0-33.0); MEAN CORPUSCULAR HGB CONC 33.8 g/dl (32.0-36.5); PLATELET COUNT, AUTOMATED 271 10^3/uL (150-450); RED BLOOD COUNT 5.58 10^6/uL (4.30-6.10); WHITE BLOOD COUNT 17.4 10^3/uL (4.0-10.0)
[2021-10-06 00:58] LABS: ALBUMIN 3.2 GM/DL (3.2-5.2); BILIRUBIN,TOTAL 0.8 MG/DL (0.2-1.0); CALCIUM LEVEL 9.7 MG/DL (8.8-10.2); CREATININE FOR GFR 2.88 MG/DL (0.70-1.30); GLOMERULAR FILTRATION RATE 22.7 (>42); POTASSIUM SERUM 4.1 MEQ/L (3.5-5.1); TOTAL PROTEIN 7.2 GM/DL (6.4-8.2)
== END ==
LOC: SKLAB4 07:00
PROVIDERS: ATTEND Neuromusculoskeletal Medicine & OMM
DX: R14.0 Abdominal distension (gaseous) (principal); K80.20 Calculus of gallbladder without cholecystitis without obstruction; R11.10 Vomiting, unspecified

== ENCOUNTER 2021-10-06 09:56 | Inpatient (IN) | payer MEDICARE, MEDICAID ==
[~2021-10-06] VITALS: Ht 170.2 cm; Wt 82.0 kg
[~2021-10-06 09:56] MED LIST changes: -AMLO2.5T3 PO; -ATIV1TAB10 PO; -CLOB5CR TOP; -HYOS125TA PO; -INSUH10VL SC; -METF500T13 PO; -MORP1SOL5 PO; -OMEP-173 PO; -SENN1TAB41 PO; -TRUL0.5I SC
[2021-10-06] MEDS ORDERED: PIPERACILLIN/TAZOBACTAM SOD 4.5 GM in D5W MINI-BAG PLUS 50 ML IV ONE (10:00)
[2021-10-06] MEDS ORDERED: NS 2,460 ML in IV 1 EA IV ONE (10:00)
[2021-10-06] MEDS ORDERED: AMIODARONE HCL 150 MG/100 ML PREMIXED BAG (NEXTERONE) (J0282 PER 30MG) As Ordered ONE (10:13)
[2021-10-06 10:15] LABS: VENOUS BASE EXCESS 0.3 (-2.0-2.0); VENOUS O2 SATURATION 68.9 % (60.0-80.0); VENOUS PARTIAL PRESSURE CO2 36.2 mmHg (38.0-50.0); VENOUS PARTIAL PRESSURE O2 36.5 mmHg (30.0-50.0); VENOUS PH 7.439 UNITS (7.330-7.430); VENOUS STANDARD HCO3 23.9 MEQ/L; VENOUS TOTAL CO2 25.1 MEQ/L (24.0-28.0)
[2021-10-06 10:23] LABS: BASO % 0.2 % (0.0-1.0); HEMATOCRIT 48.6 % (42.0-52.0); LYMPH # 1.6 10^3/uL (1.5-5.0); LYMPH % 13.5 % (24.0-44.0); MEAN CORPUSCULAR HEMOGLOBIN 29.6 pg (27.0-33.0); MEAN CORPUSCULAR HGB CONC 32.9 g/dl (32.0-36.5); MEAN CORPUSCULAR VOLUME 89.8 fl (80.0-96.0); MONO # 0.8 10^3/uL (0.0-0.8); MONO % 6.9 % (2.0-8.0); NEUTROPHILS # 9.4 10^3/uL (1.5-8.5); NEUTROPHILS % 79.1 % (36.0-66.0); PLATELET COUNT, AUTOMATED 260 10^3/uL (150-450); RED BLOOD COUNT 5.41 10^6/uL (4.30-6.10); WHITE BLOOD COUNT 11.8 10^3/uL (4.0-10.0)
[2021-10-06 10:53] LABS: CK-MB VALUE MASS 1.6 NG/ML (<3.6); MB/CK RELATIVE INDEX 1.13 (< OR =4)
[2021-10-06] MEDS ORDERED: AMIODARONE HCL 150 MG in IV 1 EA IV STA (10:53)
[2021-10-06] MEDS ORDERED: ACETAMINOPHEN 650 MG SUPP PR ONE (10:55)
[2021-10-06 10:59] LABS: ALBUMIN 2.9 GM/DL (3.2-5.2); BILIRUBIN,DIRECT 0.2 MG/DL (0.0-0.2); BILIRUBIN,TOTAL 0.9 MG/DL (0.2-1.0); CALCIUM LEVEL 8.9 MG/DL (8.8-10.2); CREATININE FOR GFR 3.93 MG/DL (0.70-1.30); GLOMERULAR FILTRATION RATE 15.9 (>42); POTASSIUM SERUM 4.9 MEQ/L (3.5-5.1); THYROID STIMULATING HORMONE 6.33 uIU/ML (0.358-3.740); TOTAL PROTEIN 6.6 GM/DL (6.4-8.2)
[2021-10-06] MEDS ORDERED: HumaLOG INSULIN (NovoLOG) PER UNIT SC SCH (12:00)
[2021-10-06 12:22] LABS: CK-MB VALUE MASS 1.9 NG/ML (<3.6); MB/CK RELATIVE INDEX 1.47 (< OR =4)
[2021-10-06] MEDS ORDERED: NS 500 ML IV ONE (12:30)
[2021-10-06] MEDS ORDERED: GLUCAGON INJ 1MG VIAL SC PRN (13:20)
[2021-10-06] MEDS ORDERED: GLUCOSE 4GM CHEW TABLET PO PRN (13:20)
[2021-10-06] MEDS ORDERED: DEXTROSE 50% 50 ML SYRINGE IV PRN (13:20)
[2021-10-06] MEDS ORDERED: NS 1,000 ML IV ONE (13:20)
[2021-10-06] MEDS ORDERED: METF500T13 PO (13:30)
[2021-10-06] MEDS ORDERED: OMEP-173 PO (13:30)
[2021-10-06] MEDS ORDERED: CLOB5CR TOP (13:30)
[2021-10-06] MEDS ORDERED: AMLO2.5T3 PO (13:30)
[2021-10-06] MEDS ORDERED: TRUL0.5I SC (13:30)
[2021-10-06] MEDS ORDERED: INSUH10VL SC (13:30)
[2021-10-06] MEDS ORDERED: SENN1TAB41 PO (13:30)
[2021-10-06] MEDS ORDERED: HOME MED LIST COMPLETE! XX SCH (13:30)
[2021-10-06] MEDS ORDERED: THIAMINE 200MG 2ML VIAL IV SCH (13:45)
[2021-10-06] MEDS ORDERED: IPRATROPIUM 0.5MG/ALBUTEROL 2.5MG INH SOL UD 3ML (DUONEB) NEB SCH (14:00)
[2021-10-06] MEDS ORDERED: NS 1,000 ML IV SCH (14:00)
[2021-10-06] MEDS ORDERED: PANTOPRAZOLE 40MG VIAL (C9113 PER 1) IV SCH (14:30)
[2021-10-06] MEDS ORDERED: methylPREDNISolone 125MG 2ML VIAL IV SCH (14:30)
[2021-10-06] MEDS ORDERED: NOREPINEPHRINE BITARTRATE 8 MG in D5W 492 ML IV SCH (15:00)
[2021-10-06] MEDS ORDERED: DOXYCYCLINE HYCLATE 100 MG in D5W MINI-BAG PLUS 100 ML IV SCH (15:00)
[2021-10-06 15:04] LABS: FREE T4 1.4 NG/DL (0.76-1.46)
[2021-10-06 15:50] VITALS: BP 91/51
[2021-10-06] MEDS ORDERED: LORazepam 2 MG/ML VIAL IV PRN (15:50)
[2021-10-06] MEDS ORDERED: SCOPOLAMINE 1MG TRANSDERMAL PATCH TOP PRN (15:50)
[2021-10-06] MEDS ORDERED: ONDANSETRON 4MG/2ML VIAL IV PRN (15:50)
[2021-10-06] MEDS ORDERED: MORPHINE 2 MG/ML 1ML VIAL (J2270) IV PRN (15:50)
[2021-10-06] MEDS ORDERED: cefTRIAXone SOD 1 GM in D5W MINI-BAG PLUS 50 ML IV SCH (16:00)
[2021-10-06] MEDS ORDERED: HYOS125TA PO (16:43)
[2021-10-06] MEDS ORDERED: MORP1SOL5 PO (16:43)
[2021-10-06] MEDS ORDERED: ATIV1TAB10 PO (16:43)
[2021-10-07] MEDS ORDERED: MORPHINE 4 MG/ML 1ML VIAL/SYRINGE (J2270) IV PRN (09:05)
== END 2021-10-07 16:33 | DRG 871 ==
LOC: EDBD 09:56 → M ED 09:56 → M ED INP 13:18
PROVIDERS: ADMIT Internal Medicine; ATTEND Internal Medicine
DX: A41.9 Sepsis, unspecified organism (principal); R65.21 Severe sepsis with septic shock; G93.41 Metabolic encephalopathy; J69.0 Pneumonitis due to inhalation of food and vomit; K56.609 Unspecified intestinal obstruction, unspecified as to partial versus complete obstruction; I47.2 Ventricular tachycardia; N17.9 Acute kidney failure, unspecified; E87.2 Acidosis; N39.0 Urinary tract infection, site not specified; N18.30 Chronic kidney disease, stage 3 unspecified; K22.89 Other specified disease of esophagus; E11.40 Type 2 diabetes mellitus with diabetic neuropathy, unspecified; I48.0 Paroxysmal atrial fibrillation; Z51.5 Encounter for palliative care; K21.9 Gastro-esophageal reflux disease without esophagitis; E03.9 Hypothyroidism, unspecified; N40.0 Benign prostatic hyperplasia without lower urinary tract symptoms; Z79.4 Long term (current) use of insulin; Z79.899 Other long term (current) drug therapy; F03.90 Unspecified dementia, unspecified severity, without behavioral disturbance, psychotic disturbance, mood disturbance, and anxiety